=== PATIENT | female | born 1970 | race Caucasian/White ===

== ENCOUNTER 2024-05-01 22:05 | Inpatient (IN) | payer OTHER, SELFPAY ==
[2024-05-01] VITALS (10 sets, daily range): BP systolic 146–176; BP diastolic 62–99; PULSE 119–126; BMI 25.8; BMI 25.3
--- NOTE | 2024-05-01 17:16 | EDRN ---
glucose 136
[2024-05-01 17:18] LABS: Glucose - Point of Care 136 mg/dl (70-99)
[2024-05-01 18:09] LABS: Mean Corp Hgb Conc. 38.2 g/dL (33.0-37.0)
[2024-05-01 18:18] LABS: % Basophils 0.3 % (0-2); % Immature Granulocytes 0.3 % (0-0.5); % Lymphocytes 29.3 % (20.5-51.1); % Monocytes 8.7 % (1.7-9.3); % Neutrophils 61.4 % (42.2-75.2); Absolute Lymphocytes 0.9 10^3/uL (1.2-3.4); Absolute Monocytes 0.3 10^3/uL (0.1-0.6); Absolute Neutrophils 1.8 10^3/uL (1.4-6.5); Hemoglobin 8.4 g/dL (12.0-16.0); Mean Corpuscular Hgb 32.1 pg (27.0-31.0); Nucleated Red Blood Cells % 0 %; Platelet Count 176 10^3/uL (130-400); Red Blood Cell Count 2.62 10^6/uL (4.20-5.40)
[2024-05-01 18:27] LABS: ALT (SGPT) 29 U/L (0-35); AST (SGOT) 54 U/L (14-36); Albumin 4.9 g/dl (3.5-5.0); Alkaline Phosphatase 46 U/L (38-126); Blood Urea Nitrogen 19 mg/dl (7-17); Calcium 9.5 mg/dl (8.4-10.2); Carbon Dioxide 23 mmol/L (22-30); Chloride 96 mmol/L (98-107); Estimated Creatinine Clearance 67 ml/min; Glucose 124 mg/dl (70-99); Sodium 133 mmol/L (135-145); Total Bilirubin 1.6 mg/dl (0.2-1.3); Total Protein 7.4 g/dl (6.3-8.2); eGFR > 60.00
[2024-05-01] MEDS: ZOFRAN 4 MG IV (18:30)
[2024-05-01 18:44] LABS: Ammonia < 9 umol/L (9-30)
[2024-05-01 19:03] LABS: Troponin I 0.019 ng/ml
--- NOTE | 2024-05-01 19:41 | EDRN ---
Pt speaks in very soft often unintelligible voice. Pt is accompanied by her parents. Pt says she went to the [facility] today to shrimp picker her parents. Pt returned and says she started to not feel well but is unable to say what was bothering her.
Pt's mother says this started around 1500. Pt complains of hot flashes currently. Pt tearful when questioned about why she is not feeling well, running her hands all over her body whispering 'it's spreading throughout my body. I'm scared. I
don't know what is wrong with me.' Reassured pt multiple times she is in a safe place and that testing is being done to determine what is making her feel unwell. Pt has bruising to R lower lip and says she does not know how that happened. Pt
denies headache, cp, abd pain, vomiting, fever/chills/cough, urinary symptoms, dizziness, weakness. Pt says she has not been eating much lately but that is because she is on mounjaro. When asked if pt feels sob she started hyperventilating saying
she was and felt scared. Emotional support provided. This RN obtained oral temp of 99.8 and pt's mother said 'It's going up.' Pt then started screaming very loudly and HR went into 140's. Asked pt why she is screaming and she looked at this RN
with wide open eyes and said 'it's going up.' Reassured pt she is safe and there is no reason to be this alarmed by her temperature. Pt calmed and HR returned to normal. Lights dimmed for comfort. Dr Clifton informed of oral temp.
--- NOTE | 2024-05-01 20:06 | EDRN ---
Two RNs assisted pt to bathroom because she said she had to urinate. Pt unable to do so and complained she does not feel well, 'it's spreading throughout my body.' Pt burped about 6 times while sitting on toilet. Pt dragging her feet while
walking but able to walk on her own with slow gait. Discussed with Dr Clifton, additional labs added on and swabs to be obtained.
--- NOTE | 2024-05-01 20:14 | EDRN ---
Discussed with pt need for urine specimen and option of obtaining it by straight cath. All questions answered. Pt would like to wait until she is able to provide a specimen on her own.
[2024-05-01 20:37] LABS: COVID-19 Antigen Negative (Negative)
[2024-05-01 21:15] LABS: Acetaminophen < 10 ug/ml (10-30); Salicylate < 1.0 mg/dl (2.0-20.0)
[2024-05-01 21:16] LABS: Alcohol None Detected
[2024-05-01] MEDS: ATIVAN 0.5 MG IV (21:42)
--- NOTE | 2024-05-01 21:48 | HPS.HSE ---
Family Physician
-
Family Physician: INTERVIEWE UNKNOWN - PT NOT
Chief Complaint
-
Confusion / Anxiety
History of Present Illness
Patient is a 53y F with PMH significant for rheumatoid arthritis / lupus, history of breast cancer and DM who presents to ED for evaluation of altered mental status. History obtained from patient and her at the bedside. Patient was
feeling well this AM upon waking. Around 9:30 AM she developed 'hot flashes' which she has had in the past since hysterectomy done in 2011. These resolved fairly quickly. 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
Patient seemed well throughout.
Around 12 noon, found patient sitting on the cough and 'staring'. She was responsive, but only to say repeatedly 'I don't feel good'.
He helped her to stand and walk upstairs to the bedroom and noted that she was 'shaking' significantly throughout this process. Patient went to sleep then and remained asleep x several hours.
Family checked on her about 3 hours later and woke her. Upon waking, she seemed extremely confused and did not know who she was nor who the family members around her were. This reportedly resolved within minutes.
However, following this patient again complained of flushed / hot sensation throughout her body. She stated that she did not feel well again but could not further describe her symptoms.
She became anxious / restless and was brought to the ED for further evaluation and treatment.
In the ED, patient has periods wherein she is resting comfortably and other periods when she is restless / anxious.
No recent illness or symptoms of cough, dyspnea, sore throat, fevers / chills, N/V/D or urinary complaints.
states that newest med addition is tirzepatide which she started taking in August for DM. She has lost 25 lbs since that time.
Medical history is significant for an episode of confusion about one year ago. describes patient not being aware of who she was or who family was for about 30 minutes. She was evaluated as an outpatient including MR brain and all was
unremarkable. Sounds most c/w TGA.
She has a remote history of migraines, but has not had one in some time.
No prior history of seizures.
Prior history of autoimmune hemolytic anemia - most recent episode was this past summer.
Patient states that her baseline Hgb is in the 8s. Was in the 6s this summer during flare / episode.
She has history of breast cancer s/p bilateral mastectomy. She completed a single cycle of chemo but did not tolerate this and did not complete any additional treatments.
Patient has DM controlled with insulin pump. DM occurred following .
Medical History
Past Medical History
Past Medical History: Reports Other
Additional Past Medical History:
Rheumatoid Arthritis
Lupus
Autoimmune Hemolytic Anemia
Gestational DM / DM-II on Insulin Pump
Breast Cancer s/p Surgery (single chemo treatment)
Remote history of Migraines
GERD
Hypertension
Past Surgical History: Reports Other
Additional Past Surgical History:
Bilateral Mastectomy
Appendectomy
Cholecystectomy
Hysterectomy
Social History
Tobacco: Non-smoker
Alcohol: Occasional
Drug: None
Personal:
Living: With Family
Family History
Family History: Not pertinent
Allergies / Home Medications
Allergies reflects when Allergies were last updated in [facility].
Home Medications with original date entered in [facility]
Allergy/Medication List:
Allergies
Allergy/AdvReac Type Severity Reaction Status Date / Time
Latex, Natural Rubber Allergy Unknown Verified 05/01/24 17:12
Penicillins Allergy Unknown Verified 05/01/24 17:12
prochlorperazine Allergy Unknown Verified 05/01/24 17:12
[From Compazine]
Sulfa (Sulfonamide Allergy Unknown Verified 05/01/24 17:12
Antibiotics)
sumatriptan [From Imitrex] Allergy Unknown Verified 05/01/24 17:12
Home Medications
Patient Own Insulin Pump 0 units SC .VIA HUMALOG 05/01/24
aspirin 81 mg tablet,delayed release 81 mg PO DAILY 05/01/24
diltiazem HCl 180 mg capsule,24 hr,extended release 180 mg PO DAILY 05/01/24
exemestane 25 mg tablet 25 mg PO DAILY 05/01/24
famotidine 20 mg tablet (Pepcid) 20 mg PO HS 05/01/24
ibuprofen 400 mg tablet 400 mg PO Q6HPRN PRN mild pain 05/01/24
pantoprazole 40 mg tablet,delayed release (Protonix) 40 mg PO DAILY 05/01/24
prednisone 5 mg tablet 5 mg PO DAILY 05/01/24
rosuvastatin 5 mg tablet (Crestor) 5 mg PO QPM 05/01/24
tirzepatide 5 mg/0.5 mL subcutaneous pen injector (Mounjaro) 5 mg SC FR 05/01/24
upadacitinib 15 mg tablet,extended release 24 hr (Rinvoq) 15 mg PO DAILY 05/01/24
Review of Systems
-
History Source: Patient and Family
A 12 point ROS was completed and negative except as noted: Yes
Constitutional: Reports Weight Loss (25 lbs since August on tirzepatide) and Fatigue; Denies Fever or Chills
EENT: Denies Sore Throat or Runny Nose
Respiratory: Reports Trouble Breathing; Denies Cough
Cardiac: Reports Palpitations; Denies Chest Pain
Abdomen/GI: Reports Nausea and Vomiting; Denies Abdominal Pain, Diarrhea or Constipated
: Denies Dysuria or Flank Pain
Musculoskeletal: Denies Joint Pain or Edema
Neurological: Denies Dizzy, Headache, Weakness or Numbness
Psych: Reports Anxiety and Panic Disorder
Physical Exam
Vital Signs
Vital Signs
Temp Pulse Resp BP Pulse Ox
99.8 F 112 20 160/80 99
05/01/24 19:35 05/01/24 21:00 05/01/24 21:00 05/01/24 21:00 05/01/24 21:00
Physical Exam
General: Other (53y F awake and answers questions. Restless / anxious at times. )
HEENT: Moist mucous membranes, PERRLA and Other (R lower lip swollen / ecchymotic. No tongue laceration.)
Respiratory: Clear; No Wheezes, Rales or Rhonchi
Cardiac: S1/S2, Regular Rhythm and Murmur (II/ ESTRELLA)
GI: Soft, Non Tender, Non Distended and Normal Bowel Sounds
Musculoskeletal: No Clubbing, No Cyanosis and No Edema
Neuro: AO x 3 and Nonfocal/grossly intact
Psych: Anxious; No Confused
Laboratory Results
-
05/01/24 17:33
05/01/24 17:33
Laboratory Results
Total Bilirubin 1.6 mg/dl (0.2-1.3) H 05/01/24 17:33
AST 54 U/L (14-36) H 05/01/24 17:33
ALT 29 U/L (0-35) 05/01/24 17:33
Alkaline Phosphatase 46 U/L (38-126) 05/01/24 17:33
Troponin I 0.019 ng/ml 05/01/24 18:30
Impression/Plan
-
A/P: Patient is a 53y F with PMH significant for RA, Lupus, autoimmune hemolytic anemia and breast cancer who presents to ED for evaluation of mental status change / anxiety / etc.
Altered Mental Status
Anxiety / Restlessness
- Admit for further evaluation and treatment.
- Evaluation thus far has been unremarkable.
- Labs appear at baseline.
- Elevated HR / BP - potentially secondary to anxiety.
- CT head done in the ED was unremarkable.
- No other focal symptoms / complaints / etc.
- ? seizure activity with prolonged sleep this afternoon, staring episode and lower lip injury (unwitnessed)?
- Check MR brain with and without contrast in the AM.
- Neuro evaluation for additional recommendations.
- ? LP if symptoms worsen or persist.
- Follow for any new / focal symptoms or complaints.
- Follow for any evident seizure activity - PRN Ativan ordered in case needed.
Rheumatoid Arthritis
Lupus
Autoimmune Hemolytic Anemia
Anemia of Chronic Disease
- No evidence of any acute flare, etc at present.
- Hgb is at baseline per patient / .
- No schistocytes noted on peripheral smear.
- Check LDH / haptoglobin. Follow H&H for changes.
- Continue daily prednisone.
- Hold Rinvoq acutely.
- Given chronic immunocompromise, etc - ? 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 See above re: possible LP.
DM-II
- Stable. Glucose fairly well controlled- no evidence of hypoglycemia.
- No anion gap acidosis.
- Continue home pump. Follow glucose and adjust as needed.
- Update A1C.
Benign Hypertension
- BP (and pulse) elevated as noted above - ? secondary to anxiety versus other.
- Check TFTs, metanephrines / catechols, etc.
- Continue diltiazem with holding parameters.
- Monitor on telemetry.
History of Breast Cancer
- s/p bilateral mastectomy.
- Attempted chemo but stopped after one treatment due to intolerance.
- Follow-up has all been unremarkable per .
- Check MR brain with and without as noted above.
- Hold exemestane acutely - though this is not a new medication.
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
DVT Prophylaxis: SCDs
Code Status: Full
--- NOTE | 2024-05-01 21:52 | EDRN ---
Pulse ox dropped into 80's room air after iv ativan - pt placed on 4 lpm O2. Pt opens eyes spontaneously.
--- NOTE | 2024-05-01 22:20 | PTCARENOTE ---
Patient arrived from ED in stretcher with . Patient disoriented, anxious, and panicked about sharing a room with a stranger and worrying about her safety. Insisting her stay as well. Staff and tried to reassure her of her
safety without any resolve. Notified custodial supervisor and requesting no roommate/private room. Pt to be transferred to [facility], Kwasi RN notified of situation. Helped escort patient to new room.
[2024-05-01 22:26] LABS: LDH 450 U/L (120-246)
--- NOTE | 2024-05-01 22:48 | ED.GENMED ---
History of Present Illness
General
Chief Complaint: Change in Mental Status
Source: patient and family (Daughter and parents)
Exam Limitations: none
Time Seen by Provider: 05/01/24 17:28
Nursing documentation reviewed up to this point in time: agreed with
History of Present Illness
History of Present Illness:
53-year-old female presents emergency department due to confusion, altered mental status. She is intermittently yelling. She had something similar to this happen about a year ago. She was seen at [facility], had an MRI and told neurology. They did
not find any specific diagnosis.
Past History
Past History
ED Past Medical History: IDDM and Other (Anemia)
ED Past Surgical History: , Gynecological (Hysterectomy) and Other (Double mastectomy)
Social History
Tobacco: Non-smoker
Alcohol: None
Drug: None
Personal:
Living: with family
Review of Systems
Review of Systems
Allergies reviewed?: Yes
All Other Systems: Not applicable
Constitutional: Reports no symptoms
EENT: Reports no symptoms
Respiratory: Reports no symptoms
Cardiac: Reports no symptoms
ABD/GI: Reports nausea
: Reports no symptoms
Musculoskeletal: Reports no symptoms
Skin: Reports no symptoms
Neurological: Reports other (Confusion)
Endocrine: Reports no symptoms
Hematologic/Lymphatic: Reports no symptoms
Psychiatric: Reports anxiety
Phy Exam
Physical Exam
Physical Exam:
Physical Exam
General: Agitated, temperature 99.8
Neck: supple. no meningeal signs. normal posterior pharynx
Heart: s1/s2 regular rate and rhythm, no murmur. equal radial
pulses.
HEENT: Pupils equal round reactive to light, EOMI
Lungs: no acute respiratory distress. clear bilaterally
Abdomen: normal bowel sounds. not tender. no CVAT
Neuro: alert and oriented. no focal neurological deficits cranial nerves II through XII intact
Skin: no rash
Psychiatric: well kept. interactive and cooperative, intermittently screaming
Extremities: no edema. no calf tenderness. negative homans. good distal pulses
Course
Orders/Labs/Results
Orders:
Orders
05/01/24 17:31
HCG, Urine Qualitative Screen Urgent
Urine Drug Abuse Screen Urgent
Test Result ONCE
05/01/24 17:33
Acetaminophen Urgent
Comment: ADD ON
Alcohol Urgent
CMP [Comprehensive Metabolic Panel] Urgent
Complete Blood Count/With Diff Urgent
Salicylate Urgent
05/01/24 17:44
CT Head W/o Iv Contrast Urgent
Comment:
Reason For Exam: Change in mental status
05/01/24 18:24
Electrocardiogram (*1) Stat
Reason for Study: Other
Other Reason for Exam: nausea
Electrocardiogram (*1) Urgent
Reason for Study: TIA/Stroke
Ondansetron Injectable [Zofran] 4 mg IV NOW STA
05/01/24 18:26
Ammonia Urgent
05/01/24 18:30
Troponin I Urgent
05/01/24 18:44
EKG [Electrocardiogram (*1)] Urgent
Reason for Study: Fatigue / Weakness
05/01/24 18:45
EKG- Treatment ONCE
05/01/24 20:06
Add On- LAB Urgent
Tests Added?: tylenol, asa and alcohol levels
05/01/24 20:11
COVID-19 Antigen Urgent
Source: Nasal Swab
Influenza A+B Rapid Molecular Urgent
ESTEFANIA Source: Nasal Swab
Specimen Description:
05/01/24 21:19
Lorazepam [Ativan] 0.5 mg IV NOW STA
05/01/24 21:20
Admit/Transfer Patient As Directed
Co-Sign Provider:
Level of Care: Inpatient admission
Assign to:: Telemetry
Physician / Group: Dawit
Diagnosis: Altered Mental Status
Reason for Telemetry: Arrhythmia
Date to Stop Telemetry: 05/04/24
Time to Stop Telemetry: 11:00
Reason for Hospitalization: Altered Mental Status
Expected length of stay greater than two midnights?: Yes
ELOS- Estimated Length of Stay in days: 3
I certify the patient meets the requirements for IP care: Yes
PRN Pain Medication Management As Directed
May give lesser potent ordered pain med per pt: Yes
preference::
Protocol:: Medication orders for pain may be administered in a
manner that supports deferring to patient preference
when the pt is:
- Requesting an ordered lesser potent pain medication.
Least to most potent pain medications are defined
as: acetaminophen < NSAID < tramadol < opioids
(morphine, oxycodone, hydromorphone).
- Requesting a lesser dose of the same medication IF
ORDERED.
- Requesting a less intrusive route of administration
if both routes are prescribed by the provider (PO <
IV).
05/01/24 21:22
Code Status As Directed
Resuscitation Status: Full Code
05/01/24 21:41
Haptoglobin [S] Urgent
LDH Urgent
TSH Reflex To Free T4 Urgent
05/01/24 22:27
Troponin I Q6H
Acetaminophen [Tylenol] 650 mg PO Q4HPRN PRN
Dextrose 50%-Water [Dextrose 50% Syringe] 12.5 grams IV [id number] PRN
Glucagon [GlucaGen] 1 mg IM PRN PRN
Lactated Ringers [Lr] 1,000 ml IV 100 mls/hr
Lorazepam [Ativan] 1 mg IV Q4HPRN PRN
Ondansetron Injectable [Zofran] 4 mg IV Q6HPRN PRN
Patient Own Insulin Pump See Dose Instructions SC .VIA HUMALOG
05/01/24 22:27
Catecholamine Fraction Free,Ur [S] Routine
Metanephrines, Plasma (free) [S] Routine
Activity As Directed
Activity Level: Ambulate
With Assistance
Bedside Glucose Monitoring As Directed
Frequency: AC&HS
Additional Instructions:: Change to q6h if pt on TPN, tube feeding or not eating
Bladder Scan As Directed
Follow Bladder Retention/Intermittent Cath Algorithm?: Yes
PRN if no void in __ hours: 6
Frequency: Per Retention Algorithm
If Bladder Scan Result >: 400
then:: Straight cath
EKG with chest pain [ECG as needed] As Directed
ECG as needed for:: Chest Pain
I/O [Intake/ Output] As Directed
Frequency: Per unit guidelines
Neurological Checks As Directed
Frequency: q4h
Orthostatic Vital Signs As Directed
Orthostatic VS Frequency: BID
Pneumatic Compression Sleeves As Directed
Type: Knee high
Precautions As Directed
Type of Precautions: Seizure
Straight Cath As Directed
Frequency: Per Retention Algorithm
Additional Instructions: straight cath as needed per acute urinary retention algorithm for 24 hrs
Additional Instructions: for bladder scan greater than 400 mL
Vital Signs As Directed
Frequency: Per unit guidelines
Weight As Directed
Frequency: Daily
Oxygen Therapy [O2 Therapy] [RESP] Routine
Titrate/Wean O2 to maintain O2 sat greater than (%): 94
DX Deep Vein Thrombosis Video Routine
05/02/24 04:27
Troponin I Q6H
05/02/24 Breakfast
2000 calorie (17 carb) Diabetic
At Your Request: Limited Participation
Does patient need a safe tray?: No
Basic Metabolic Panel IN AM
Complete Blood Count/No Diff IN AM
Glycohemoglobin (HgbA1c) IN AM
LFT [Tapzd-Bpec-Qlbnjvb] IN AM
Magnesium IN AM
Phosphorus IN AM
MR Brain W/o & With Contrast IN AM
Comment:
Reason For Exam: Altered Mental Status
Recent pill cam endoscopy?: No
05/02/24 08:00
Aspirin Low Dose EC [Aspir Low (Enteric Coated)] 81 mg PO DAILY
Diltiazem Extended Release [Cardizem Cd] 180 mg PO DAILY
Pantoprazole [Protonix] 40 mg PO DAILY
Prednisone [Deltasone] 5 mg PO DAILY
05/02/24 10:27
Troponin I Q6H
05/04/24 11:00
DC Protocol for Telemetry ONCE
Abnormal Lab Results
05/01/24 05/01/24 05/01/24
17:16 17:33 18:26
WBC 3.0 L 10^3/uL
(4.8-10.8)
RBC 2.62 L 10^6/uL
(4.20-5.40)
Hgb 8.4 L g/dL
(12.0-16.0)
Hct 22.0 L %
(37.0-47.0)
MCH 32.1 H pg
(27.0-31.0)
MCHC 38.2 H g/dL
(33.0-37.0)
RDW 15.0 H %
(11.5-14.5)
MPV 11.0 H fL
(7.4-10.4)
Absolute Lymphs (auto) 0.9 L 10^3/uL
(1.2-3.4)
Sodium 133 L mmol/L
(135-145)
Chloride 96 L mmol/L
(98-107)
BUN 19 H mg/dl
(7-17)
Glucose 124 H mg/dl
(70-99)
Total Bilirubin 1.6 H mg/dl
(0.2-1.3)
AST 54 H U/L
(14-36)
Ammonia < 9 L umol/L
(9-30)
Lactate Dehydrogenase
Salicylates < 1.0 L mg/dl
(2.0-20.0)
Acetaminophen < 10 L ug/ml
(10-30)
POC Glucose 136 H mg/dl
(70-99)
05/01/24
21:41
WBC
RBC
Hgb
Hct
MCH
MCHC
RDW
MPV
Absolute Lymphs (auto)
Sodium
Chloride
BUN
Glucose
Total Bilirubin
AST
Ammonia
Lactate Dehydrogenase 450 H U/L
(120-246)
Salicylates
Acetaminophen
POC Glucose
05/01/24 17:33
05/01/24 17:33
Vital Signs
Initial and Last Documented VS:
Initial Vital Signs
Temp Pulse Resp BP Pulse Ox
98.3 F 94 16 176/85 98
05/01/24 17:12 05/01/24 17:12 05/01/24 17:12 05/01/24 17:12 05/01/24 17:12
Last Documented Vital Signs
Temp Pulse Resp BP Pulse Ox
99.8 F 101 23 160/80 100
05/01/24 19:35 05/01/24 22:00 05/01/24 22:00 05/01/24 21:00 05/01/24 22:00
MDM/Problems Addressed
Differential Diagnosis Includes:
CVA, hepatic encephalopathy
MDM/Problems Addressed:
53-year-old female with altered mental status, unclear etiology. Nausea. Detectable troponin, however no clear ischemia on EKG. Will admit to hospitalist, for further evaluation, trend troponins
*Radiology
Radiology exam reviewed: radiology read reviewed (CT head no acute findings)
*Pulse Oximetry
Patient hypoxic: no
*EKG
Interpreted by ED Provider?: Yes
EKG Intrepretation Date: 05/01/24
EKG Intrepretation Time: 18:47
Interpretation: abnormal
Comparison EKG: no comparison EKG present
Heart Rate: 109
Rate: tachycardiac
Rhythm: sinus tachycardia
Coffey: normal axis
Interval: normal interval
QRS Pattern: normal QRS
Ischemia: non-specific ST changes
*Manager Business Management Interpretation
Rate: tachycardiac
Interpretation: abnormal
Heart Rate: 109
Rhythm: sinus tachycardia
*Critical Care Note
Total Time (30-74mins, 75-104mins- exclusive of procedures): Not Applicable
Data Reviewed
Review of Other/Old Records Reveals: Labs (hb 11.8 on 03/13/22)
Source: records
Patient Management
Social determinants of health affecting care: Living situation
Discussion with other providers: Hospitalist
Escalation/DeEscalation of care consider admission/obs:
admit not indicated
ED Attending Note
-
Portions of this chart may have been created with voice recognition software.� Occasional wrong word or��sound alike� substitutions may have occurred due to the inherent limitations of voice recognition software.
Discharge Plan
Departure
Patient Disposition: Admit
Date of Disposition: 05/01/24
Time of Disposition: 20:12
Admit to: Telemetry
Presentation/result/management discussed w/ accepting MD/DO: Hospitalist
Patient with high blood pressure during this ER visit?: Yes
Condition: Fair
Discharge Problem:
Acute alteration in mental status
Interventions
Interventions:
*Risk Screen - Suicide Last Done: 05/01/24 17:12
*General Assessment Last Done: 05/01/24 17:24
*Neglect/Abuse Screening Last Done: 05/01/24 17:12
ED- Fall Risk Assessment Last Done: 05/01/24 17:24
*ED COVID-19 Vaccine History Last Done: 05/01/24 17:24
*Nursing Disposition Last Done: 05/01/24 22:22
ED- Pulmonary Assessment Last Done: 05/01/24 19:35
ED-Psychological Assessment Last Done: 05/01/24 17:57
ED- Neurological Assessment Last Done: 05/01/24 19:35
ED- Cardiac Assessment Last Done: 05/01/24 19:35
ED Swallowing Screen Last Done: 05/01/24 17:24
Discharge Date and Time
Discharge Date/Time: 05/01/24 22:22
[2024-05-01 22:50] LABS: TSH Reflex To Free T4 0.69 uIU/ml (0.47-4.68)
--- NOTE | 2024-05-01 22:59 | EDRN ---
Informed pt would not get off stretcher when taken up to 4th floor and reportedly refused to be placed in a semi private room. ED charge nurse asked this RN to call nurse for room 325 and give verbal report. Verbal report given to Kwasi on 3rd floor.
[2024-05-01] MEDS: LR 1000 IV (23:26)
--- NOTE | 2024-05-01 23:29 | PTCARENOTE ---
Pt transferred from 4E to rm 325. Maria Esther RN informed this RN of situation and ED nurse called w/ report. Pt very paranoid and and questioning staff. at bedside. Placed on tele #[id number], Sinus tach. insulin pump on LLQ, order to be acknowledged by
pharmacy. Bed alarm placed for safety. Plan of care ongoing.
[2024-05-01 23:39] LABS: Glucose - Point of Care 130 mg/dl (70-99)
[2024-05-02] MEDS: ATIVAN 0.5 MG IV (00:54)
[2024-05-02] MEDS: NSS (PRESERVATIVE FREE) 0.25 ML IV (00:54)
[2024-05-02 01:15] LABS: Troponin I 0.073 ng/ml
--- NOTE | 2024-05-02 02:34 | W.PN.UPDATE ---
Update Note
Progress Note Update
-Troponin is trending up, now is 0.073 on admission is 0.019. Asymptomatic. EKG ordered.
-Will continue trending troponin and EKG monitoring for changes.
[2024-05-02 03:30] VITALS: BP 144/81
[2024-05-02 05:33] VITALS: BMI 25.4
[2024-05-02] MEDS: TYLENOL 650 MG PO ×3 (05:42→20:50)
[2024-05-02 05:51] LABS: Amphetamines Negative (Negative); Barbiturates Negative (Negative); Benzodiazepines Positive (Negative); Buprenorphine Negative (Negative); Cocaine Negative (Negative); HCG, Urine Qualitative Screen Negative; Marijuana Negative (Negative); Methadone Negative (Negative); Methamphetamines Negative (Negative); Opiates Negative (Negative); Phencyclidine Negative (Negative); Tricyclic Antidepressants Negative (Negative)
--- NOTE | 2024-05-02 05:56 | PTCARENOTE ---
Pt very anxious/paranoid and did not want to leave. Pt repeatedly asking 'Why am I not getting better?'. Pt aaox3. Pt asked RN to named everything in the room since she was 'scared' of her surroundings. RN reassured pt that she is in a safe
place. Surroundings explained. Pt fidgeting and restless. DIRECT SUPPORT PROFESSIONAL notified. 1x dose Ativan 0.5mg IV given at 0054. pt agreed to let leave. Plan of care ongoing.
[2024-05-02 06:27] LABS: Hemoglobin 8.2 g/dL (12.0-16.0); Mean Corp Hgb Conc. 37.3 g/dL (33.0-37.0); Mean Corpuscular Hgb 30.8 pg (27.0-31.0); Mean Corpuscular Volume 82.7 fL (81.0-99.0); Mean Platelet Volume 9.9 fL (7.4-10.4); Platelet Count 146 10^3/uL (130-400); Red Blood Cell Count 2.66 10^6/uL (4.20-5.40); Red Cell Dist. Width 15.3 % (11.5-14.5); White Blood Cell Count 5.8 10^3/uL (4.8-10.8)
[2024-05-02 06:28] LABS: Fentanyl, Urine Negative (Negative)
[2024-05-02 06:58] LABS: Troponin I 0.279 ng/ml
[2024-05-02 07:20] LABS: ALT (SGPT) 27 U/L (0-35); AST (SGOT) 54 U/L (14-36); Albumin 4.4 g/dl (3.5-5.0); Alkaline Phosphatase 36 U/L (38-126); Blood Urea Nitrogen 16 mg/dl (7-17); Calcium 8.8 mg/dl (8.4-10.2); Carbon Dioxide 22 mmol/L (22-30); Chloride 95 mmol/L (98-107); Direct Bilirubin 0.2 mg/dl (0.0-0.4); Estimated Creatinine Clearance 76 ml/min; Glucose 96 mg/dl (70-99); Magnesium 1.6 mg/dl (1.6-2.3); Phosphorus 3.9 mg/dl (2.5-4.5); Potassium 3.7 mmol/L (3.5-5.1); Sodium 132 mmol/L (135-145); Total Bilirubin 1.5 mg/dl (0.2-1.3); Total Protein 6.9 g/dl (6.3-8.2); eGFR > 60.00
[2024-05-02 07:33] VITALS: BP 143/75
[2024-05-02 08:12] LABS: Glucose - Point of Care 97 mg/dl (70-99)
[2024-05-02 08:29] LABS: Glycohemoglobin (HgbA1c) 4.9 % (4.0-5.6)
[2024-05-02] MEDS: CARDIZEM CD 180 MG PO (08:58)
[2024-05-02] MEDS: PROTONIX 40 MG PO (08:59)
[2024-05-02] MEDS: ASPIR LOW (ENTERIC COATED) 81 MG PO (08:59)
[2024-05-02] MEDS: DELTASONE 5 MG PO (08:59)
[2024-05-02] MEDS: LR 1000 IV (09:00)
--- NOTE | 2024-05-02 09:53 | CON.NEURO4 ---
Addendum entered and electronically signed by Raymond Parra MD 05/02/24 14:49:
Studies reviewed.
I have personally examined the patient. I reviewed and agree with the STRAINER TENDER's Note.
My addenda:
Awake, alert, interactive. No acute distress.
Speech intact.
Follows 2-step requests w/o difficulty. No tremor.
Extra-ocular movements grossly intact.
Facial movements full and symmetric. Hearing intact to normal conversational volume.
Normal UE movements bilaterally.
Neck: full ROM.
Chest: no dyspnea
Heart: no JVD
Ext: (-) Clubbing, (-) Cyanosis, (-) Edema
IMPRESSIONS/RECOMMENDATIONS:
Abrupt onset of change in mental status with the patient having had a prior change mental status 1 year ago associated with agitation, also.
Differential diagnosis includes toxic metabolic encephalopathy, seizure
Check EEG to ensure patient is not having generalizing seizures
Check MRI of brain as already planned to ensure no structural abnormalities producing symptomatology
Provide thiamine
Consider lumbar puncture dependent on above findings
D/W patient
Will continue to follow patient.
Original Note:
Documented by User: Betsey Whittington NP 05/02/24 12:27
Consultation - Neurology 4
-
CONSULTING PHYSICIAN: Raymond Parra MD
REFERRING PHYSICIAN: ER/Dr. Pastor
DICTATED BY: MURTAZA Jiang
DATE/TIME OF REQUEST: 05/01/24
DATE/TIME OF CONSULTATION: 05/02/24
Reason for Consultation: Altered mental status
History of Present Illness:
This is a 53-year-old right-handed female who has presented to the hospital on 05/01/24 with report of altered mental status. Patient is currently lethargic/somewhat confused and some of this information is obtained from medical records. Per
patient's , she woke up yesterday morning (05/01/24) at her baseline. Around 0930 she told him she was having 'hot flashes,' which was not unusual for her since her hysterectomy. Around noon, her found her sitting on the couch staring.
She was verbally responsive but only repeatedly saying 'I don't feel good.' He helped her upstairs to bed and she was 'shaky' and proceeded to nap for several hours. Three hours later her family woke her up and reports that she was confused and
didn't know who she was or who they were for several minutes. She noted feeling flushed and was anxious/restless, prompting them to bring her to the ER for evaluation. On arrival in the ER she was noted to have periods or restlessness and yelling,
which the patient can remember doing. CT head was obtained and is negative for any acute abnormalities. Today (05/02/24), she reports feeling very fatigued but otherwise offers not complaints. She is very restless in bed and making a somewhat
rhythmic mouth chewing movement. She denies any headache, neck/back pain, dizziness, vision changes, speech/swallow difficulty, numbness, weakness, chest pain, palpitations, and shortness of breath. Oral temp is currently 100.8. Troponin levels have
been increasing, most recent one was 0.279.
She had a somewhat similar episode of confusion about one year ago lasting 30 minutes. She was evaluated at [facility] at that time and had a negative MRI brain and unremarkable workup. She was newly started on Mounjaro in August 2023 and
has had a 25 pound weight loss since. She is also on Rinvoq for rheumatoid arthritis.
Past Medical History: HTN, NIDDM requiring insulin since gestational diabetes, Rheumatoid arthritis (Rinvoq), lupus, breast cancer s/p b/l mastectomy and single chemo treatment, autoimmune hemolytic anemia, GERD
Surgical History: Appendectomy, cholecystectomy, hysterectomy, b/l mastectomy
Family History: Reviewed and noncontributory.
Social History: Denies tobacco and illicit drug use. Rare alcohol.
Allergies: Latex, penicillins, prochlorperazine, sulfa, sumatriptan.
Home Medications: See below.
Review of Symptoms:
Patient denies any fever, headache, chest pain, shortness of breath, GI or symptoms.
�Per the HPI.�All systems are reviewed negative except above.
Physical Exam:
The patient is afebrile, abdomen is nondistended, breathing is unlabored, skin is warm and dry, no edema.
NIH Stroke Scale:
I performed the NIH stroke scale on the patient on 05/02/24 at 1000. The patient scored 1 points on the NIH stroke scale assessment, which were assigned as follows: See below.
Neurologic Examination:
The patient is drowsy. Opens eyes to voice. Oriented x 3 are several attempts/self corrections. She is able to follow commands and answer questions appropriately, but responses are delayed. There is no aphasia or dysarthria. Speech is hypophonic.
On cranial nerve assessment, pupils are 3 mm bilateral, round and reactive to light and accommodation. Visual celestin are full. Extraocular movements are intact. Facial sensations are intact and bilaterally symmetrical, there is an intermittent
rhythmic mouth movement. Hearing is intact bilaterally to normal conversation volume. Tongue palate and uvula are midline. Sternocleidomastoid strengths are full bilaterally. Motor strengths are 5/5 bilateral upper and lower extremities on medical
research [place] scale. There is no drift. Deep tendon reflexes are 2+ bilateral upper and lower extremities and Babinski is absent bilaterally. Sensations of touch, temperature and vibration are intact and bilaterally symmetrical. There was no
extinction noted on double simultaneous stimulation. Coordination is intact by finger to nose bilaterally.
Lab Results: See below.
Neuro Imaging:
1. CT Head 05/01/24: No acute intracranial abnormality noted.
Differentials for the patient's presentation include:
1. Altered mental status unclear etiology; partial seizure possible, vascular or structural brain abnormality possible, some concern for RECREATION CENTER DIRECTOR infectious source given immune compromising medication usage.
Patient has the following risk factors for their symptoms: Immune compromised, elevated troponin
Recommendations:
-Routine EEG pending.
-MRI brain w/ and w/o contrast pending.
-Consider lumbar puncture based on MRI brain results.
-Goal normothermia, normotension.
-Neurological checks per unit guidelines.
-Continue aspirin 81mg daily.
-Would hold off on starting an antiseizure medication at this time.
-PT/OT/ST evaluations.
-DVT prophylaxis.
-Will follow.
Discussed patient care with: Dr. Parra, the patient
Vital Signs and Labs
-
Vital Signs and Labs:
Vital Signs
Temp Pulse Resp BP Pulse Ox
100.8 F H 99 16 141/74 95
05/02/24 11:21 05/02/24 11:21 05/02/24 11:21 05/02/24 11:21 05/02/24 11:21
Lab Results
05/02/24 06:13
05/02/24 06:14
Sodium 132 mmol/L (135-145) L 05/02/24 06:14
Potassium 3.7 mmol/L (3.5-5.1) 05/02/24 06:14
BUN 16 mg/dl (7-17) 05/02/24 06:14
Glucose 96 mg/dl (70-99) 05/02/24 06:14
Calcium 8.8 mg/dl (8.4-10.2) 05/02/24 06:14
Phosphorus 3.9 mg/dl (2.5-4.5) 05/02/24 06:14
Ur Buprenorphine Negative (Negative) 05/02/24 05:29
Medications
-
Medications:
Generic Name Dose Route Start Last Admin
Trade Name Freq PRN Reason Stop Dose Admin
Acetaminophen 650 mg 05/01/24 22:27 05/02/24 05:42
Acetaminophen 325 Mg Tablet PO 05/29/24 22:26 650 mg
Q4HPRN PRN Administration
Mild Pain / Temp > 101
Aspirin 81 mg 05/02/24 08:00 05/02/24 08:59
Aspirin 81 Mg (Enteric Coated) Tablet PO 05/30/24 07:59 81 mg
DAILY LAY Administration
Dextrose 12.5 grams 05/01/24 22:27
Dextrose 50% (0.5 Grams/Ml) 50 Ml Syringe IV 05/29/24 22:26
[id number] PRN
hypoglycemia
Protocol
Diltiazem HCl 180 mg 05/02/24 08:00 05/02/24 08:58
Diltiazem 180 Mg Extended Release (24 H) Capsule PO 05/30/24 07:59 180 mg
DAILY LAY Administration
Glucagon 1 mg 05/01/24 22:27
Glucagon 1 Mg Vial IM 05/29/24 22:26
PRN PRN
hypoglycemia
Protocol
Lactated Ringer's 1,000 mls @ 100 mls/hr 05/01/24 22:27 05/02/24 09:00
Lr IV 1,000 mls
.Q10H LAY Administration
Lorazepam 1 mg 05/01/24 22:27
Lorazepam 2 Mg/Ml Vial IV 05/29/24 22:26
Q4HPRN PRN
Seizure activity
Lorazepam 1 mg 05/02/24 10:04
Lorazepam 1 Mg Tablet PO 05/02/24 20:59
ONCE PRN
1 hour prior for MRI of brain
Non-Formulary Medication 0 units 05/01/24 22:27
Patient Own Insulin Pump SC 05/29/24 22:26
.VIA HUMALOG LAY
Ondansetron HCl 4 mg 05/01/24 22:27
Ondansetron 4 Mg/2 Ml Vial IV 05/29/24 22:26
Q6HPRN PRN
nausea and vomiting
Pantoprazole Sodium 40 mg 05/02/24 08:00 05/02/24 08:59
Pantoprazole 40 Mg Delayed Release Tablet PO 05/30/24 07:59 40 mg
DAILY LAY Administration
Prednisone 5 mg 05/02/24 08:00 05/02/24 08:59
Prednisone 5 Mg Tablet PO 05/30/24 07:59 5 mg
DAILY LAY Administration
Sodium Chloride 0 flush 05/01/24 23:00
Sodium Chloride 0.9% (Flush) Syringe IV 05/29/24 22:59
PER PROTOCOL LAY
Sodium Chloride 0.5 ml 05/01/24 22:39
Nss (Pf) 10 Ml Vial For Ativan 1 Mg Dose IV 05/29/24 22:38
Q4HPRN PRN
IV LORAZEPAM DILUTION
Thiamine HCl 100 mg 05/02/24 12:00
Thiamine 100 Mg Tablet PO 05/04/24 08:01
DAILY LAY
NIH Stroke Score
Subsequent NIH Scale
Date of Subsequent NIH Scale: 05/02/24
Time of Subsequent NIH Scale: 10:00
NIH Stroke Score
Level of Consciousness: 1 - Arousable
LOC Questions: 0-Answers both correctly
LOC Commands: 0-Performs both correctly
Best Horizontal Gaze: 0-Normal
Visual Celestin: 0=Normal, no visual loss
Facial Palsy: 0=Normal, symmetrical
Motor - Right Arm: 0=No drift 10 seconds
Motor - Left Arm: 0=No drift 10 seconds
Motor - Right Le-No drift 5 seconds
Motor - Left Le-No drift 5 seconds
Limb Ataxia: 0-Absent
Sensation: 0-Normal
Best Language: 0-No aphasia
Dysarthria: 0-Normal
Extinction and Inattention: 0-No abnormality
Total Score:: 1

Documented by User: Raymond Parra MD 05/02/24 14:45
NIH Stroke Score
NIH Stroke Score
Total Score:: 1
[2024-05-02 11:05] LABS: Erythrocyte Sed Rate 39 mm/hour (0-20)
[2024-05-02 11:21] VITALS: BP 141/74
[2024-05-02 11:36] LABS: Ferritin 45.9 ng/ml (11.1-264.0)
[2024-05-02 12:08] LABS: Folate > 20.0 ng/ml (2.76-20)
--- NOTE | 2024-05-02 12:35 | CM ---
CM attempted bedside visit and pt off unit
Call with spouse/Lauro [phone]
Pt and spouse reside in a [address] with 2 [address]
14 steps to 2nd floor
Pt's parents resides with them in an in-law suite
Pt is independent with her ADLs
She has an insulin pump and dexcom
PCP- Reynaldo, first name unknown
Rx- [facility]
Discharge Disposition- likely home no needs
--- NOTE | 2024-05-02 12:44 | W.PN.HOSP.TC ---
Today's Communication/Plan
-
Check ua/bcx
trend trop
MRI/EEG pending
Check ECHO
Neuro/Cards eval
Assessment / Plan
Assessment / Plan
A/P: Patient is a 53y F with PMH significant for RA, Lupus, autoimmune hemolytic anemia and breast cancer who presents to ED for evaluation of mental status change / anxiety / etc.
Altered Mental Status
Anxiety / Restlessness
- CT head done in the ED was unremarkable.
- No other focal symptoms / complaints / etc.
- ? seizure activity with prolonged sleep this afternoon, staring episode and lower lip injury (unwitnessed)?
- Check MR brain with and without contrast
- Check EEG
- Etoh negative. UDS noted
- Follow for any new / focal symptoms or complaints.
- Follow for any evident seizure activity - PRN Ativan ordered in case needed.
- Neuro evaluation for additional recommendations.
Fever
-COVID and Influenza negative.
-Check UA and blood culture
-Hold off on antibiotics.
-If persistent fevers may need to consider LP.
Elevated troponin
-Trop uptrending.
-Check ECHO
-Cardiology eval-no prior hx of CAD
Rheumatoid Arthritis
Lupus
Autoimmune Hemolytic Anemia
Anemia of Chronic Disease
- No evidence of any acute flare, etc at present.
- Hgb is at baseline per patient / .
- No schistocytes noted on peripheral smear.
- Continue daily prednisone.
- Hold Rinvoq acutely.
- Given chronic immunocompromise, etc - ? reactivation of viral process / EXCELSIOR MACHINE TENDER involvement? See above re: possible LP.
DM-II
- Stable. Glucose fairly well controlled- no evidence of hypoglycemia.
- No anion gap acidosis.
- Continue home pump. Follow glucose and adjust as needed.
- Update A1C.
Benign Hypertension
- BP (and pulse) elevated as noted above - ? secondary to anxiety versus other.
- Check TFTs, metanephrines / catechols, etc.
- Continue diltiazem with holding parameters.
- Monitor on telemetry.
History of Breast Cancer
- s/p bilateral mastectomy.
- Attempted chemo but stopped after one treatment due to intolerance.
- Follow-up has all been unremarkable per .
- Check MR brain with and without as noted above.
- Hold exemestane acutely - though this is not a new medication.
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
Mild hyponatremia
-monitor for now
DVT Prophylaxis: hep sc
Code Status: Full
Anticipated Discharge: > 48 hours
Subjective/Interval History
-
Date of Service: May 02, 2024
slow speech
But awake, alert and oriented
spiked fever just now
Objective Data
-
Labs:
Laboratory Results
05/02/24 05/02/24
06:13 06:14
WBC 5.8
Hgb 8.2 L
Hct 22.0 L
Plt Count 146
Sodium 132 L
Potassium 3.7
Chloride 95 L
Carbon Dioxide 22
BUN 16
Creatinine 0.7
Glucose 96
Calcium 8.8
Total Bilirubin 1.5 H
AST 54 H
ALT 27
Alkaline Phosphatase 36 L
Vital Signs:
Vital Signs
Temp Pulse Resp BP Pulse Ox
100.8 F H 99 16 141/74 95
05/02/24 11:21 05/02/24 11:21 05/02/24 11:21 05/02/24 11:21 05/02/24 11:21
I&O
05/01/24 05/02/24 05/03/24
06:59 06:59 06:59
Output Total 250 / 250
Balance -250 / -250
Physical Exam
-
General: Well Developed, Well Nourished, No Apparent Distress and Comfortable
HEENT: Normocephalic, Atraumatic, Moist Mucous Membranes, No Ptosis, Nose Appears Normal, Ears Appear Normal, Neck Non Tender and Other (SUPPLE )
Respiratory: Clear to Auscultation
Cardiac: Regular Rhythm and S1/S2; Negative Murmur, Rub or Gallop
Breast: Deferred by me
GI: Soft, Nontender, Nondistended and Normal Bowel Sounds; Negative Organomegaly
Rectal: Deferred by Provider
Genito-urinary: Deferred by me
Musculoskeletal: No Clubbing, No Cyanosis and No Edema
Skin: Warm; Negative Rash
Neuro: Awake, Alert and Nonfocal/Grossly Intact; Negative Tremors, Sedated, Slurred Speech or Facial Droop
Psych: Calm
Data Reviewed
-
Total Time Spent with Patient (in minutes): 59
--- NOTE | 2024-05-02 12:49 | CON.CAR ---
Addendum entered and electronically signed by Dimitri Brizuela MD 05/02/24 15:18:
-
-
I saw and examined the patient.
The LABORER TIN CAN's note was reviewed and I agree with the note.
Comment: No clinical syndrome of ischemia. EKG with mild ST depression. Troponin minimally abnormal.
Imp:
Probable non-myocardial injury from her underlying medical illness
Given the mild ST-T depression cannot exclude a type II event but that seems less likely
Suggest:
Echo
Outpatient stress test
Risk factor modification, outpatient lipid profile
-
-
Original Note:
Consultation
Consultation Request
Date/Time Consultation Requested: 05/02/2024 12:25
Date/Time Consultation Performed: 12:50
Requesting Provider: Dr. Meredith
Performing Provider: MURTAZA Valdovinos for Dr. Brizuela
Reason for Consultation: Abnormal troponin
Medical History
-
Chief Complaint: Change in mental status
History of Present Illness:
Roxy Mcadams is a 53-year-old female with RA, SLE, prior breast cancer, and type 2 diabetes mellitus who presented to the emergency department with a chief complaint and change in mental status. She is able to answer all questions during this
consultation with a very slow response. She does not remember the full details of coming in but remembers not feeling well. She has no complaints other than fatigue. Cardiology was consulted for an abnormal troponin.
Past Medical History
Past Medical History: Cancer (Breast [s/p mastectomy and single chemotherapy treatment]), GERD, HTN, Hypercholesterolemia, IDDM and Other (RA)
Past Surgical History: Appendectomy, Cholecystectomy and Gynecological (Hysterectomy)
Social History
Tobacco: Non-Smoker
Alcohol: None
Drug: None
Personal:
Living: With Family
Employment: Employed
Family History
Family History: Reviewed & Not Pertinent (Denies early CAD and SCD. Only child.)
Allergies / Home Medications
Allergy/AdvReac Type Severity Reaction Status Date / Time
Latex, Natural Rubber Allergy Unknown Verified 05/01/24 17:12
Penicillins Allergy Unknown Verified 05/01/24 17:12
prochlorperazine Allergy Unknown Verified 05/01/24 17:12
[From Compazine]
Sulfa (Sulfonamide Allergy Unknown Verified 05/01/24 17:12
Antibiotics)
sumatriptan [From Imitrex] Allergy Unknown Verified 05/01/24 17:12
�Medication �Instructions �Recorded �Confirmed �Type
Patient Own Insulin Pump 0 units SC .VIA HUMALOG Diabetes 05/01/24 05/01/24 History
aspirin 81 mg tablet,delayed 81 mg PO DAILY Blood Clot 05/01/24 05/01/24 History
release Prevention/Tx
diltiazem HCl 180 mg capsule,24 180 mg PO DAILY Blood Pressure 05/01/24 05/01/24 History
hr,extended release
exemestane 25 mg tablet 25 mg PO DAILY Hormonal Agent 05/01/24 05/01/24 History
famotidine 20 mg tablet (Pepcid) 20 mg PO HS Gastrointestinal Issue 05/01/24 05/01/24 History
ibuprofen 400 mg tablet 400 mg PO Q6HPRN PRN mild pain 05/01/24 05/01/24 History
pantoprazole 40 mg tablet,delayed 40 mg PO DAILY Gastrointestinal 05/01/24 05/01/24 History
release (Protonix) Issue
prednisone 5 mg tablet 5 mg PO DAILY rheumatoid arthritis 05/01/24 05/01/24 History
rosuvastatin 5 mg tablet (Crestor) 5 mg PO QPM High Cholesterol 05/01/24 05/01/24 History
tirzepatide 5 mg/0.5 mL 5 mg SC FR Diabetes 05/01/24 05/01/24 History
subcutaneous pen injector
(Mounjaro)
upadacitinib 15 mg tablet,extended 15 mg PO DAILY Rheumatoid arthritis 05/01/24 05/01/24 History
release 24 hr (Rinvoq)
Review of Systems
-
History Source: Patient
All other systems: Negative unless noted
Constitutional: Fatigue
EENT: No Symptoms
Respiratory: No Symptoms
Cardiac: No Symptoms
Abdomen/GI: No Symptoms
: No Symptoms
Musculoskeletal: No Symptoms
Skin: No Symptoms
Neurological: No Symptoms
Endocrine: No Symptoms
Hematologic/Lymphatic: No Symptoms
Physical Exam
Vital Signs
Temp Pulse Resp BP Pulse Ox
100.8 F H 99 16 141/74 95
05/02/24 11:21 05/02/24 11:21 05/02/24 11:21 05/02/24 11:21 05/02/24 11:21
Lab Results
05/02/24 06:13
05/02/24 06:14
Troponin I 0.279 ng/ml H* D 05/02/24 06:13
Physical Exam
General: Well Developed, Well Nourished and No Apparent Distress
HEENT: Normocephalic, Anicteric and Moist Mucous Membranes
Respiratory: Clear and Non Labored Respirations
Cardiac: S1/S2, Regular Rhythm and Murmur (Systolic)
Breast: Deferred by me
GI: Soft, Non Tender, Non Distended and Normal Bowel Sounds
Rectal: Deferred by Provider
Genito-urinary: No Costovertebral Tender
Musculoskeletal: No Clubbing, No Cyanosis and No Edema
Skin: Warm and Dry
Neuro: AO x 3 and Other (Delayed responses)
Hematologic/Lymphatic: No Lymphadenopathy
Psych: Calm
Impression / Plan
-
BACKGROUND: 53F with RA, SLE, prior breast cancer s/p bilateral mastectomy with single chemotherapy treatment, and type 2 diabetes mellitus who presented to the emergency department with a chief complaint and change in mental status.
IMPRESSION/PLAN:
Abnormal troponin, type unknown
-Denies chest pain and shortness of breath
-Trend troponin to peak, currently 0.279
-Echocardiogram
Change in mental status
-Neurology following
Febrile
-No leukocytosis
-COVID-19 and influenza negative
-Blood cultures ordered by primary service
Tachycardia, likely in the setting of acute illness/infection/syndrome, she denies palpitations
RA
SLE
Type 2 diabetes mellitus on insulin, per primary
Anemia, likely of chronic disease, per primary
SUBJECTIVE:
Denies chest pain, dizziness, shortness of breath.
She endorses fatigue.
Data Reviewed
-
EKG: Report Reviewed by me (Sinus rhythm, nonspecific ST abnormality, rate 95)
CT Scan: Report Reviewed by me (Head: No acute intracranial abnormality noted.)
Labs: Labs Reviewed by me
[2024-05-02 13:06] LABS: Vitamin B12 818 pg/ml (239-931)
[2024-05-02 14:10] LABS: Troponin I 0.285 ng/ml
[2024-05-02] MEDS: VITAMIN B1 100 MG PO (14:42)
--- NOTE | 2024-05-02 14:49 | EEG.RPT ---
Electroencephalogram Report
Recording
Date of EE05/02/24
Type of EEG: Routine
Length of EEG recordin minutes
Done with Video Recording: Yes
Patient Status: Inpatient
Recording Conditions: Awake and Drowsy
Hyperventilation Performed: No
Photic Stimulation Performed: Yes
Report
LESS THAN 1 HOUR EEG INTERPRETATION:
Unremarkable EEG for age
CLINICAL CORRELATION:
A normal EEG does not rule out a diagnosis of epilepsy. If clinical suspicion for seizure persists, a prolonged recording may be warranted.
Clinical correlation is advised.
METHODS:
A 21 channel digitized electroencephalogram (EEG) was performed using the 10/20 international system of electrode placement and one-lead of ECG recorded. The [employer] quantitative EEG system was utilized.
ELECTROENCEPHALOGRAPHER IMPRESSION(S):
Quality of study
Fair due to muscle artifact and sweat artifact
Background
There was an unremarkable anterior-posterior voltage gradient of alpha frequency, usually theta.
With eye opening the background activity changed to a low voltage mixture of frequencies.
There were no significant asymmetries of background activity noted.
Sleep
Drowsiness present
Photic Stimulation
No activation
ECG
Normal sinus rhythm
[2024-05-02 15:23] VITALS: BP 135/63
[2024-05-02] MEDS: ZOFRAN 4 MG IV (15:35)
[2024-05-02 16:11] LABS: Troponin I 0.271 ng/ml
[2024-05-02 17:38] LABS: Glucose - Point of Care 150 mg/dl (70-99)
[2024-05-02] MEDS: HEPARIN 5000 UNITS SC (17:47)
[2024-05-02] MEDS: TIGAN 200 MG IM (17:47)
[2024-05-02 19:41] VITALS: BP 134/77
[2024-05-02 22:50] VITALS: BP 117/67; BP 124/76; BP 133/72; PULSE 106; PULSE 113; PULSE 94
[2024-05-02] MEDS: PATIENT'S OWN INSULIN PUMP SC (23:40)
[2024-05-03] VITALS (9 sets, daily range): BP systolic 108–140; BP diastolic 61–73; PULSE 91–108; O2SAT 96; BMI 25.8
[2024-05-03] MEDS: HEPARIN 5000 UNITS SC ×4 (00:56→23:11)
[2024-05-03] MEDS: ZOFRAN 4 MG IV ×4 (01:49→23:10)
[2024-05-03] MEDS: LIDOCAINE 4% PATCH 1 PATCH TOPICAL (01:50)
[2024-05-03] MEDS: ATIVAN 0.25 MG PO ×2 (03:48→23:38)
[2024-05-03] MEDS: VITAMIN B1 100 MG PO (08:02)
[2024-05-03] MEDS: TYLENOL 650 MG PO ×2 (08:02→19:45)
[2024-05-03] MEDS: PROTONIX 40 MG PO (08:02)
[2024-05-03] MEDS: DELTASONE 5 MG PO (08:02)
[2024-05-03] MEDS: ASPIR LOW (ENTERIC COATED) 81 MG PO (08:02)
[2024-05-03] MEDS: CARDIZEM CD 180 MG PO (08:03)
[2024-05-03 08:15] LABS: Glucose - Point of Care 96 mg/dl (70-99)
[2024-05-03 08:20] LABS: % Basophils 0.3 % (0-2); % Immature Granulocytes 0.6 % (0-0.5); % Monocytes 8.4 % (1.7-9.3); % Neutrophils 81.7 % (42.2-75.2); Absolute Lymphocytes 0.3 10^3/uL (1.2-3.4); Absolute Monocytes 0.3 10^3/uL (0.1-0.6); Absolute Neutrophils 2.8 10^3/uL (1.4-6.5); Hematocrit 21.9 % (37.0-47.0); Hemoglobin 8.2 g/dL (12.0-16.0); Mean Corp Hgb Conc. 37.4 g/dL (33.0-37.0); Mean Corpuscular Hgb 31.5 pg (27.0-31.0); Mean Corpuscular Volume 84.2 fL (81.0-99.0); Nucleated Red Blood Cells % 0 %; Platelet Count 131 10^3/uL (130-400); Red Cell Dist. Width 15.7 % (11.5-14.5); White Blood Cell Count 3.4 10^3/uL (4.8-10.8)
[2024-05-03 08:28] LABS: ALT (SGPT) 30 U/L (0-35); AST (SGOT) 67 U/L (14-36); Albumin 4.3 g/dl (3.5-5.0); Alkaline Phosphatase 34 U/L (38-126); Blood Urea Nitrogen 14 mg/dl (7-17); Calcium 8.8 mg/dl (8.4-10.2); Carbon Dioxide 24 mmol/L (22-30); Estimated Creatinine Clearance 67 ml/min; Glucose 68 mg/dl (70-99); Potassium 3.6 mmol/L (3.5-5.1); Sodium 128 mmol/L (135-145); Total Protein 6.7 g/dl (6.3-8.2); eGFR > 60.00
--- NOTE | 2024-05-03 08:32 | W.PN.CD ---
Today's Communication / Plan
-
no active cardiac symptoms, normal echocardiogram
continue asa and statin
I will sign off
Impression / Plan
-
BACKGROUND: 53F with RA, SLE, prior breast cancer s/p bilateral mastectomy with single chemotherapy treatment, and type 2 diabetes mellitus who presented to the emergency department with a chief complaint and change in mental status.
IMPRESSION/PLAN:
Nonischemic myocardial injusry in the setting of fever and tachycarida(sinus)
-Denies chest pain and shortness of breath
-troponin to peak 0.285
-Echocardiogram with normal LVEF
Febrile
-No leukocytosis, now leukopenic
-COVID-19 and influenza negative
-Blood cultures ordered by primary service
-care as per medicine
Change in mental status
-Neurology following
Tachycardia, likely in the setting of acute illness/infection/syndrome, she denies palpitations
RA
SLE
Type 2 diabetes mellitus on insulin, per primary
Anemia, likely of chronic disease, per primary
SUBJECTIVE:
Denies chest pain, dizziness, shortness of breath.
She is tired.
Physical Exam
Vital Signs/Labs
Vital Signs
Temp Pulse Resp BP Pulse Ox
101.7 F H 105 17 124/65 94
05/03/24 06:59 05/03/24 08:03 05/03/24 06:59 05/03/24 08:03 05/03/24 06:59
05/02/24 05/03/24 05/04/24
06:59 06:59 06:59
Actual Weight 64.92 kg 65.969 kg
05/03/24 06:48
05/03/24 06:48
Magnesium 1.6 mg/dl (1.6-2.3) 05/02/24 06:14
LAB Results
05/01/24 05/01/24 05/02/24
18:30 22:27 00:10
Troponin I 0.019 Cancelled 0.073 H* D
05/02/24 05/02/24 05/02/24
06:13 13:34 15:34
Troponin I 0.279 H* D 0.285 H* 0.271 H*
Physical Exam
Constitutional: No acute distress
Cardiovascular: Rhythm & rate is regular, Pedal edema is absent, JVD pressure is normal, Systolic murmur absent and Diastolic murmur absent
Respiratory: Respiratory effort normal, Lungs clear to auscul., Wheeze Absent, Crackles Absent and Rhonchi Absent
Neuro/Psych: AO x 3
Data Reviewed
-
Date of Service: May 03, 2024
EKG: Other (sinus tachycardia on tele)
Echo: Other (Normal LVEF, MVP of posterior leaflet with no significant MR )
[2024-05-03] MEDS: PATIENT'S OWN INSULIN PUMP SC ×3 (08:59→21:57)
--- NOTE | 2024-05-03 09:28 | W.PN.NEURO.1 ---
Today's Communication / Plan
-
Supportive care
Consider outpatient paraneoplastic evaluation
Continue steroids
Continue thiamine
Consider lumbar puncture if the patient has worsening of symptomatology or recurrence
Neuro Assessment/Plan
Assessment
Abrupt onset of change in mental status with the patient having had a prior change mental status 1 year ago associated with agitation, also.
Differential diagnosis includes toxic metabolic encephalopathy, seizure
MRI of brain and EEG were not demonstrative of causative abnormalities
Plan
Supportive care
Consider outpatient paraneoplastic evaluation
Continue steroids
Continue thiamine
Consider lumbar puncture if the patient has worsening of symptomatology or recurrence
We will follow peripherally
Subjective/Objective
Subjective Data
Date of Service: May 03, 2024
Patient believes that she has returned to normal cognition. Patient's family agrees that cognition is not significantly troubled
Objective Data
Vital Signs
Temp Pulse Resp BP Pulse Ox
38.0 C H 105 17 124/65 94
05/03/24 09:17 05/03/24 08:03 05/03/24 06:59 05/03/24 08:03 05/03/24 06:59
Lab Results
05/03/24 06:48
05/03/24 06:48
Sodium 128 mmol/L (135-145) L 05/03/24 06:48
Potassium 3.6 mmol/L (3.5-5.1) 05/03/24 06:48
BUN 14 mg/dl (7-17) 05/03/24 06:48
Glucose 68 mg/dl (70-99) L 05/03/24 06:48
Calcium 8.8 mg/dl (8.4-10.2) 05/03/24 06:48
Phosphorus 3.9 mg/dl (2.5-4.5) 05/02/24 06:14
Vitamin B12 818 pg/ml (239-931) 05/02/24 06:13
Ur Buprenorphine Negative (Negative) 05/02/24 05:29
Patient Allergies
Latex, Natural Rubber Allergy (Verified 05/01/24 17:12)
Unknown
Penicillins Allergy (Verified 05/01/24 17:12)
Unknown
prochlorperazine [From Compazine] Allergy (Verified 05/01/24 17:12)
Unknown
Sulfa (Sulfonamide Antibiotics) Allergy (Verified 05/01/24 17:12)
Unknown
sumatriptan [From Imitrex] Allergy (Verified 05/01/24 17:12)
Unknown
Review of Systems
-
History Source: Patient
All other systems: Reviewed and negative
Neuro: Negative Dizzy or Headache
Physical Exam
-
General: No Apparent Distress and Appears Stated Age
Eyes: Round OU, Dillard Conjunctivae and No Ptosis
HEENT: Anicteric and Moist Mucous Membranes
Neck: Full Range of Motion
Respiratory: No Dyspnea
Cardiac: No JVD
GI: Non-distended
Skin: Unremarkable
Extremities: No Clubbing, No Cyanosis and No Edema
Psych: Intact Judgement/Insight
Extended Neurological Exam
Mood & Affect: Negative Affect Unremarkable (Mildly aloof?, Mildly restless)
Attention Span & Concentration: Awake, Alert and Interactive
Memory: Unremarkable
Tremor: Hand Tremor Absent and Head Tremor Absent
Speech: Quality Unremarkable and Quantity Unremarkable
Cranial Nerve II: Left Eye: Pupillary Size Unremarkable and Visual Celestin Grossly Intact
Cranial Nerve II: Right Eye: Pupillary Size Unremarkable and Visual Celestin Grossly Intact
Cranial Nerves III, IV, : Extraocular Movement: Grossly Intact
Cranial Nerve VII: Facial Symmetry: Normal Facial Symmetry
Cranial Nerve VIII: Hearing: Unremarkable Hearing to Normal Conversational Volume
Cranial Nerve XI: Shoulder Shrug: Unremarkable
Muscle Strength, Overall: Full in Upper Extremities
Muscle Bulk & Tone: Bulk Unremarkable and Tone Unremarkable
Pronator Drift: No Drift in Upper Extremities
Touch Sensation: Unremarkable
Coordination: [id number] Testing Unremarkable
Data Reviewed
-
MRI Head: Report Reviewed
EEG: Report Reviewed
Labs: Report Reviewed
Reviewed with: Physician, Patient and Family
Old Records: Summarized
Past History
Past History
ED Past Medical History: IDDM and Other (Anemia)
ED Past Surgical History: , Gynecological (Hysterectomy) and Other (Double mastectomy)
Social History
Tobacco: Non-smoker
Alcohol: None
Drug: None
Personal:
Living: with family
Medications
-
Medications:
Generic Name Dose Route Start Last Admin
Trade Name Freq PRN Reason Stop Dose Admin
Acetaminophen 650 mg 05/02/24 12:25 05/03/24 08:02
Acetaminophen 325 Mg Tablet PO 05/29/24 22:26 650 mg
Q4HPRN PRN Administration
Mild Pain / Temp > 100.4F/PRAKASH
Aspirin 81 mg 05/02/24 08:00 05/03/24 08:02
Aspirin 81 Mg (Enteric Coated) Tablet PO 05/30/24 07:59 81 mg
DAILY LAY Administration
Dextrose 12.5 grams 05/01/24 22:27
Dextrose 50% (0.5 Grams/Ml) 50 Ml Syringe IV 05/29/24 22:26
[id number] PRN
hypoglycemia
Protocol
Diltiazem HCl 180 mg 05/02/24 08:00 05/03/24 08:03
Diltiazem 180 Mg Extended Release (24 H) Capsule PO 05/30/24 07:59 180 mg
DAILY LAY Administration
Glucagon 1 mg 05/01/24 22:27
Glucagon 1 Mg Vial IM 05/29/24 22:26
PRN PRN
hypoglycemia
Protocol
Heparin Sodium 5,000 units 05/02/24 16:00 05/03/24 08:02
Heparin 5,000 Units/Ml 1 Ml Vial SC 05/30/24 15:59 5,000 units
Q8 LAY Administration
Lorazepam 1 mg 05/01/24 22:27
Lorazepam 2 Mg/Ml Vial IV 05/29/24 22:26
Q4HPRN PRN
Seizure activity
Ondansetron HCl 4 mg 05/01/24 22:27 05/03/24 08:04
Ondansetron 4 Mg/2 Ml Vial IV 05/29/24 22:26 4 mg
Q6HPRN PRN Administration
nausea and vomiting
Pantoprazole Sodium 40 mg 05/02/24 08:00 05/03/24 08:02
Pantoprazole 40 Mg Delayed Release Tablet PO 05/30/24 07:59 40 mg
DAILY LAY Administration
Patient Own Medication 0 units 05/02/24 22:00 05/03/24 08:59
Insulin Pump - Patient's Own SC 05/30/24 21:59 Not Given
ACHS LAY
Prednisone 5 mg 05/02/24 08:00 05/03/24 08:02
Prednisone 5 Mg Tablet PO 05/30/24 07:59 5 mg
DAILY LAY Administration
Sodium Chloride 0 flush 05/01/24 23:00
Sodium Chloride 0.9% (Flush) Syringe IV 05/29/24 22:59
PER PROTOCOL LAY
Sodium Chloride 0.5 ml 05/01/24 22:39
Nss (Pf) 10 Ml Vial For Ativan 1 Mg Dose IV 05/29/24 22:38
Q4HPRN PRN
IV LORAZEPAM DILUTION
Thiamine HCl 100 mg 05/02/24 12:00 05/03/24 08:02
Thiamine 100 Mg Tablet PO 05/04/24 08:01 100 mg
DAILY LAY Administration
--- NOTE | 2024-05-03 10:42 | W.PN.HOSP.TC ---
Today's Communication/Plan
-
UA pending
CXR
monitor fever/wbc curve
ID eval
Neuro recs
PT/OT
Assessment / Plan
Assessment / Plan
A/P: Patient is a 53y F with PMH significant for RA, Lupus, autoimmune hemolytic anemia and breast cancer who presents to ED for evaluation of mental status change / anxiety / etc.
Altered Mental Status-improved.
Anxiety / Restlessness
- CT head done in the ED was unremarkable.
- No other focal symptoms / complaints / etc.
- ? seizure activity with prolonged sleep this afternoon, staring episode and lower lip injury (unwitnessed)?
- MR brain with and without contrast-No acute intracranial abnormality noted.
- EEG noted and found to be negative.
- Etoh negative. UDS noted
- Follow for any new / focal symptoms or complaints.
- Follow for any evident seizure activity - PRN Ativan ordered in case needed.
- Neuro evaluation for additional recommendations.
Fever
-COVID and Influenza negative.
-Blood cultures in lab.
-UA w/reflex to cutlure pending
-CXR ordered
-Hold off on antibiotics.
-TTE negative for vegetations.
- Given chronic immunocompromise, etc - ? reactivation of viral process / [employer] involvement?
-need to r/o infectious work first before considering drug fevers
-ID eval requested.
Elevated troponin likely 2/2 non ischemic myocardial injury
-Trop downtrended
-Echo with Normal biventricular size and systolic function without regional wall motion abnormality. No significant valvular disease. Normal echocardiogram.
-Cardiology signed off-recs cont asa/statin
Rheumatoid Arthritis
Lupus
Autoimmune Hemolytic Anemia
Anemia of Chronic Disease
- No evidence of any acute flare, etc at present.
- Continue daily prednisone.
- Hold Rinvoq acutely.
DM-II
- Stable. Glucose fairly well controlled- no evidence of hypoglycemia.
- No anion gap acidosis.
- Continue home pump. Follow glucose and adjust as needed.
- Update A1C at 4.9.
Benign Hypertension
- BP (and pulse) elevated as noted above - ? secondary to anxiety versus other.
- Continue diltiazem with holding parameters.
- Monitor on telemetry.
History of Breast Cancer
- s/p bilateral mastectomy.
- Attempted chemo but stopped after one treatment due to intolerance.
- Follow-up has all been unremarkable per .
- Hold exemestane acutely - though this is not a new medication.
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
Mild hyponatremia
-monitor for now
DVT Prophylaxis: hep sc
Code Status: Full
Anticipated Discharge: > 48 hours
Subjective/Interval History
-
Date of Service: May 03, 2024
Feeling better
Denies cough
denies dysuria
denies loose bowel movements
no recent travel
no back pain or neck pain
no sick contacts
Objective Data
-
Labs:
Laboratory Results
05/03/24
06:48
WBC 3.4 L
Hgb 8.2 L
Hct 21.9 L
Plt Count 131
Sodium 128 L
Potassium 3.6
Chloride Pending
Carbon Dioxide 24
BUN 14
Creatinine 0.8
Glucose 68 L
Calcium 8.8
Total Bilirubin 2.0 H
AST 67 H
ALT 30
Alkaline Phosphatase 34 L
Vital Signs:
Vital Signs
Temp Pulse Resp BP Pulse Ox
100.4 F H 105 17 124/65 94
05/03/24 09:17 05/03/24 08:03 05/03/24 06:59 05/03/24 08:03 05/03/24 06:59
I&O
05/02/24 05/03/24 05/04/24
06:59 06:59 06:59
Intake Total 1200 / 1200
Output Total 250 / 250
Balance -250 / -250 1200 / 1200
Physical Exam
-
General: Well Developed, Well Nourished, No Apparent Distress and Comfortable
HEENT: Normocephalic, Atraumatic, Moist Mucous Membranes, No Ptosis, Nose Appears Normal, Ears Appear Normal, Neck Non Tender and Other (SUPPLE )
Respiratory: Clear to Auscultation
Cardiac: Regular Rhythm and S1/S2; Negative Murmur, Rub or Gallop
Breast: Deferred by me
GI: Soft, Nontender, Nondistended and Normal Bowel Sounds; Negative Organomegaly
Rectal: Deferred by Provider
Genito-urinary: Deferred by me
Musculoskeletal: No Clubbing, No Cyanosis and No Edema
Skin: Warm; Negative Rash
Neuro: Awake, Alert, Oriented, AO x 3 and Nonfocal/Grossly Intact; Negative Tremors, Sedated, Slurred Speech or Facial Droop
Psych: Calm
Data Reviewed
-
Total Time Spent with Patient (in minutes): 55
[2024-05-03 10:45] LABS: Chloride 94 mmol/L (98-107)
[2024-05-03 11:50] LABS: Glucose - Point of Care 118 mg/dl (70-99)
[2024-05-03] MEDS: PATIENT'S OWN INSULIN PUMP 12 UNITS SC (13:16)
[2024-05-03 13:31] LABS: Urine Albumin Trace (Neg - Trace); Urine Bilirubin Negative (Negative); Urine Character Clear (Clear); Urine Color Yellow; Urine Glucose Trace (Negative); Urine Ketone 3+ (Negative); Urine Leukocyte 2+ (Negative); Urine Nitrite Negative (Negative); Urine Occult Blood 1+ (Negative); Urine Specific Gravity 1.015 (<1.030); Urine Urobilinogen 1+ (Neg - 1+)
[2024-05-03 13:43] LABS: Urine Bacteria Few (Negative); Urine Squamous Cell >30 /LPF (Few)
[2024-05-03 13:44] LABS: Urine White Cell 16-20 /HPF (0-5)
--- NOTE | 2024-05-03 15:24 | PTCARENOTE ---
Pt c/o unrelieved nausea. MD made aware, Pepcid and Tums ordered, see MAR. Will continue to monitor.
[2024-05-03] MEDS: TUMS CHEWABLE TABLET 200 MG PO (15:26)
[2024-05-03] MEDS: PEPCID 20 MG PO (15:27)
--- NOTE | 2024-05-03 16:19 | CON.ID ---
Consultation
-
Date/Time Consultation Requested: 05/03/24 10:12
Date/Time Consultation Performed: 05/03/24 16:19
Requesting Provider: Dr Meredith
Performing Provider: Dr Gray
Reason for Consultation: Confusion / Anxiety
Chief Complaint / Past History
Chief Complaint
AMS
History of Present Illness
Ms Mcadams is a 53 year old female with history of RA/lupus and breast cancer s/p BL mastectomy s/p single cycle of chemotherapy, DM2 with insulin pump presenting here for AMS. Reports starting around 9:30 on 05/01, day of admission she had fevers
which she though was resolving, however later same day found her staring and she would only respond with 'I dont feel good.' noticed that she was having rigors. She was taken up to bed and when checked on about 3 hours later
remained confused and again saying she was feeling hot. She was brought to the ER. No fecent cough, dyspnea, sore throat, nausea, vomiting, diarrhea or dysuria. Was recently started or tirzepatide with 25 lbs of weight loss. No history of
seizure. Does have a history of autoimmune hemolytic anemia with baseline hgb in 8s - unsure exact cause. Yard gets sprayed for ticks and they havent seen one in years. No history of lyme or other tick born illnesses. Not on any injections for
lupus/ra and no recent high dose steroids
Since arrival here she has been febrile to a tmax of 101.7 - t curve increasing, bp stable, wbc initially 5.8 today 3.4, hgb 8.2 yesterday and today, plt 131, no L shift on arrival but present today, haptoglobin <10, cr 0.8, na 132 on arrival and
128 today, glucose 96 and a1c 4.9, t bili 1.5 today 2.0, ast 54 now 67, alt 30, alk phos 34, ldh 450, ua 16-20 wbc/hpf and many squamous cells, UDS positive for benzos, covid ag negative, 05/02 brain mrain with and w/o contrast: no acute abnormality,
CT head also nonrevealing, blood cultures x2 in progress no growth to date, urine culture pending, currently not on antibiotics, ID is consulted for assistance with management. Today only focal symptom is vomiting. Denies headaches, photophobia,
neck stiffness, sore throat, cough, sputum production, diarrhea, dysuria urgency, rashes.
Past History
Additional Past Medical History:
Rheumatoid Arthritis
Lupus
Autoimmune Hemolytic Anemia
Gestational DM / DM-II on Insulin Pump
Breast Cancer s/p Surgery (single chemo treatment)
Remote history of Migraines
GERD
Hypertension
Additional Past Surgical History:
Bilateral Mastectomy
Appendectomy
Cholecystectomy
Hysterectomy
Allergy History:
Latex, Natural Rubber Allergy (Verified 05/01/24 17:12)
Unknown
Penicillins Allergy (Verified 05/01/24 17:12)
Unknown
prochlorperazine [From Compazine] Allergy (Verified 05/01/24 17:12)
Unknown
Sulfa (Sulfonamide Antibiotics) Allergy (Verified 05/01/24 17:12)
Unknown
sumatriptan [From Imitrex] Allergy (Verified 05/01/24 17:12)
Unknown
Medications Reviewed: Yes
Social History
Tobacco: Non-Smoker
Alcohol: Occasional
Drug: None
Family History
Family History: Not Pertinent
Review of Systems
Review of Systems
General: Fever and Chills
All systems: All other systems were reviewed and were negative
Vital Signs
Temp Pulse Resp BP Pulse Ox
99.2 F 91 17 138/69 96
05/03/24 15:06 05/03/24 15:06 05/03/24 15:06 05/03/24 15:06 05/03/24 15:06
Physical Exam
Physical Exam
Constitutional: No Acute Distress
Head: Other (wound on lip)
Cardiovascular: Regular Rate and S1/S2; Negative Murmur or Rub
Pulmonary: Clear and Symmetric; Negative Wheezes, Rales or Rhonchi
Gastrointestinal: Soft, Non Tender, Non Distended and Normal Bowel Sounds
Skin: Warm and Dry; Negative Rash or Jaundice
Neurological: Awake
Lab / Diagnostic Study Results
05/03/24 06:48
05/03/24 06:48
Abs Immat Gran (auto) 0.0 10^3/uL (0-0.05) 05/03/24 06:48
Absolute Neuts (auto) 2.8 10^3/uL (1.4-6.5) 05/03/24 06:48
Absolute Lymphs (auto) 0.3 10^3/uL (1.2-3.4) L 05/03/24 06:48
Absolute Monos (auto) 0.3 10^3/uL (0.1-0.6) 05/03/24 06:48
Absolute Basos (auto) 0.0 10^3/uL (0-0.2) 05/03/24 06:48
Immature Gran % 0.6 % (0-0.5) H 05/03/24 06:48
Neutrophils % 81.7 % (42.2-75.2) H 05/03/24 06:48
Lymphocytes % 9.0 % (20.5-51.1) L 05/03/24 06:48
Monocytes % 8.4 % (1.7-9.3) 05/03/24 06:48
Eosinophils % 0.0 % (0-6) 05/03/24 06:48
Basophils % 0.3 % (0-2) 05/03/24 06:48
ESR 39 mm/hour (0-20) H 05/02/24 06:13
Ur Squamous Epith Cells >30 /LPF (Few) 05/03/24 13:18
Microbiology Results
Micro:
05/02/24 15:34 Blood Culture - Preliminary
Blood/Venous No Growth in 24 hours- Final report to follow
05/02/24 13:34 Blood Culture - Preliminary
Blood/Venous No Growth in 24 hours- Final report to follow
05/03/24 13:18 Urine Culture - Pending
Urine
05/01/24 20:11 Influenza Types A & B (YULIANA) - Final
Nasal Swab Negative for Influenza A & B, NAAT
Negative results must be combined with clinical observations
and patient history.
Nucleic Acid Amplification test (NAAT)performed on the
[employer] platform.
Assessment / Plan
Fevers
AMS
Possible Seizure
Possible UTI
- urine culture in progress, UA with abundant squamous cells, mild pyuria
- blood cultures x2 in progress
- ldh elevated, low na and mild transaminitis, h/o hemolytic anemia - check babesia smear
- lp may be considered if not improving
- CXR is planned for the AM
- follow clinically, if fevers do no resolve will likely start empiric ceftriaxone and doxycycline
[2024-05-03 16:39] LABS: Glucose - Point of Care 179 mg/dl (70-99)
--- NOTE | 2024-05-03 16:45 | PTCARENOTE ---
Pt c/o unrelieved nausea. MD made aware, verbal order provided, see MAR.
[2024-05-03] MEDS: REGLAN 10 MG IV ×2 (16:49→23:42)
[2024-05-03 17:12] LABS: Haptoglobin <10 mg/dL (30-200)
[2024-05-03 21:32] LABS: Glucose - Point of Care 88 mg/dl (70-99)
[2024-05-03] MEDS: MELATONIN 5 MG PO (23:39)
[2024-05-04] VITALS (10 sets, daily range): BP systolic 100–127; BP diastolic 58–79; PULSE 77–129; BMI 25.2
[2024-05-04] MEDS: TYLENOL 650 MG PO ×2 (03:32→11:18)
[2024-05-04 07:05] LABS: % Immature Granulocytes 0.5 % (0-0.5); % Lymphocytes 8.5 % (20.5-51.1); % Monocytes 8.5 % (1.7-9.3); % Neutrophils 82.5 % (42.2-75.2); Absolute Lymphocytes 0.2 10^3/uL (1.2-3.4); Absolute Monocytes 0.2 10^3/uL (0.1-0.6); Absolute Neutrophils 1.7 10^3/uL (1.4-6.5); Hematocrit 18.8 % (37.0-47.0); Mean Corp Hgb Conc. 37.2 g/dL (33.0-37.0); Mean Corpuscular Hgb 30.6 pg (27.0-31.0); Mean Corpuscular Volume 82.1 fL (81.0-99.0); Mean Platelet Volume 10.3 fL (7.4-10.4); Nucleated Red Blood Cells % 0 %; Platelet Count 97 10^3/uL (130-400); Red Blood Cell Count 2.29 10^6/uL (4.20-5.40); Red Cell Dist. Width 15.9 % (11.5-14.5)
--- NOTE | 2024-05-04 07:17 | PTCARENOTE ---
Lab informed this RN of critical HCT=18.8 and critical WBC=2.0. MD made aware, no new orders provided.
[2024-05-04 07:32] LABS: Glucose - Point of Care 83 mg/dl (70-99)
[2024-05-04] MEDS: PATIENT'S OWN INSULIN PUMP 6.8 UNITS SC (07:56)
[2024-05-04 07:58] LABS: ALT (SGPT) 27 U/L (0-35); AST (SGOT) 54 U/L (14-36); Albumin 3.7 g/dl (3.5-5.0); Alkaline Phosphatase 31 U/L (38-126); Blood Urea Nitrogen 15 mg/dl (7-17); Calcium 8.8 mg/dl (8.4-10.2); Carbon Dioxide 25 mmol/L (22-30); Chloride 97 mmol/L (98-107); Estimated Creatinine Clearance 59 ml/min; Glucose 105 mg/dl (70-99); Potassium 3.3 mmol/L (3.5-5.1); Sodium 132 mmol/L (135-145); Total Bilirubin 2.1 mg/dl (0.2-1.3); Total Protein 5.9 g/dl (6.3-8.2); eGFR > 60.00
[2024-05-04] MEDS: CARDIZEM CD 180 MG PO (08:03)
[2024-05-04] MEDS: ZOFRAN 4 MG IV (08:03)
[2024-05-04] MEDS: HEPARIN 5000 UNITS SC ×2 (08:03→15:42)
[2024-05-04] MEDS: PEPCID 20 MG PO (08:03)
[2024-05-04] MEDS: PROTONIX 40 MG PO (08:04)
[2024-05-04] MEDS: DELTASONE 5 MG PO (08:04)
[2024-05-04] MEDS: VITAMIN B1 100 MG PO (08:04)
[2024-05-04] MEDS: ASPIR LOW (ENTERIC COATED) 81 MG PO (08:04)
--- NOTE | 2024-05-04 08:50 | PTCARENOTE ---
Pt c/o unrelieved nausea. HR elevated, 100's - 120's. made aware, new order provided, see MAR.
[2024-05-04] MEDS: REGLAN 10 MG IV (09:10)
--- NOTE | 2024-05-04 09:38 | CON.ONC ---
Impression
Impression
53 year-old female with pmhx of autoimmune hemolytic anemia, RA/lupus, breast cancer, and diabetes admitted with altered mental status.
# Altered mental status
- etiology unclear, seizure vs toxic metabolic encephalopathy
- Neurology consulted and following, consider LP if symptoms worsen
- Head CT, Brain MRI, EEG show no acute abnormalities
- U/C pending, B/C no growth in 24hrs
- CXR pending
- ID following, not currently on antibiotics
- Patient is not confused today
# Autoimmune hemolytic anemia, anemia of chronic disease
- Currently asymptomatic, no chest pain, no shortness of breath
- Low haptoglobin, high LDH, high retic --> labs c/w hemolysis
- Per patient, baseline hemoglobin is ~8. Today Hgb is 7.0, will transfuse 1 unit PRBC
- Type and screen
- Transfuse if hemoglobin less than 7 and platelets less than 10k
- Mildly elevated ESR, no signs and symptoms of acute flare
- Likely in the setting of infection and RA/lupus
- Continue to hold Rinvoq
- Given mildly elevated AST and mild hyponatremia, tickborne illnesses a possible diagnosis
- Continue to monitor blood counts
- Iron studies pending
# Leukopenia
- Likely in the setting of chronic disease
- ANC 1.7
- Continue to monitor
# Nausea
- Abdominal x-ray pending
# Diabetes mellitus type 2
- Hemoglobin A1c 4.9
- Continue home pump
# History of breast cancer
- Status post bilateral mastectomy
- Exemestane held
Patient History
History of Present Illness
Patient is a 53-year-old female with a past medical history of autoimmune hemolytic anemia, RA/lupus, breast cancer status post bilateral mastectomy, and diabetes mellitus presenting with altered mental status and hot flashes. Patient was in her
usual state of health until 05/01/2024 around noontime when she was feeling confused and not her usual self. She has had intermittent fevers (up to 102.2 F) since admission and feels nauseous. Last episode of autoimmune hemolytic anemia was this
past summer when she had blood transfused at [place]. Notes no new changes in medication except for tirzepatide which was started in August. Patient had a similar episode of confusion last year that was worked up at outpatient and was
unremarkable. Reports no history of Lyme or other tickborne diseases. This admission, labs show wbc 2.0, hgb 7.0, plt 97. mildly elevated AST (54), T bilirubin 2.1, ESR 39, LDH 450, retic 4.0, haptoglobin <10. CT head and MRI brain acute
abnormality. Blood smear revealed no schistocytes or blood parasites. EEG not demonstrative of causative abnormalities. COVID negative. Patient is on prednisone 5mg daily for RA. Rinvoq and Exemestane have been held. Urine toxicology is positive
for benzodiazepines. B/C no growth in 24hrs and U/A shows wbc 16-20 with >30 squamous cells, bacteria few, rbc 3-6, occult blood 1+. U/C pending.
Past-Medical/Surgical History
Past medical history:
Autoimmune hemolytic anemia, RA/lupus, breast cancer s/p bilateral mastectomy, diabetes
Past surgical history:
Appendectomy, cholecystectomy, hysterectomy, mastectomy
Patient Medication
�Medication �Instructions �Recorded �Confirmed �Last Taken �Type
Patient Own Insulin Pump 0 units SC .VIA HUMALOG Diabetes 05/01/24 05/01/24 Unknown History
aspirin 81 mg tablet,delayed 81 mg PO DAILY Blood Clot 05/01/24 05/01/24 Unknown History
release Prevention/Tx
diltiazem HCl 180 mg capsule,24 180 mg PO DAILY Blood Pressure 05/01/24 05/01/24 Unknown History
hr,extended release
exemestane 25 mg tablet 25 mg PO DAILY Hormonal Agent 05/01/24 05/01/24 Unknown History
famotidine 20 mg tablet (Pepcid) 20 mg PO HS Gastrointestinal Issue 05/01/24 05/01/24 Unknown History
ibuprofen 400 mg tablet 400 mg PO Q6HPRN PRN mild pain 05/01/24 05/01/24 Unknown History
pantoprazole 40 mg tablet,delayed 40 mg PO DAILY Gastrointestinal 05/01/24 05/01/24 Unknown History
release (Protonix) Issue
prednisone 5 mg tablet 5 mg PO DAILY rheumatoid arthritis 05/01/24 05/01/24 Unknown History
rosuvastatin 5 mg tablet (Crestor) 5 mg PO QPM High Cholesterol 05/01/24 05/01/24 Unknown History
tirzepatide 5 mg/0.5 mL 5 mg SC FR Diabetes 05/01/24 05/01/24 Unknown History
subcutaneous pen injector
(Mounjaro)
upadacitinib 15 mg tablet,extended 15 mg PO DAILY Rheumatoid arthritis 05/01/24 05/01/24 Unknown History
release 24 hr (Rinvoq)
Active Medications
Generic Name Dose Route Start Last Admin
Trade Name Freq PRN Reason Stop Dose Admin
Acetaminophen 650 mg 05/02/24 12:25 05/04/24 03:32
Acetaminophen 325 Mg Tablet PO 05/29/24 22:26 650 mg
Q4HPRN PRN Administration
Mild Pain / Temp > 100.4F/PRAKASH
Aspirin 81 mg 05/02/24 08:00 05/04/24 08:04
Aspirin 81 Mg (Enteric Coated) Tablet PO 05/30/24 07:59 81 mg
DAILY LAY Administration
Calcium Carbonate 200 mg 05/03/24 15:04
Calcium Antacid 200 Mg (Calcium Carbonate 500 Mg) Chew Tablet PO 05/31/24 15:03
Q6HPRN PRN
reflux/nausea
Dextrose 12.5 grams 05/01/24 22:27
Dextrose 50% (0.5 Grams/Ml) 50 Ml Syringe IV 05/29/24 22:26
[id number] PRN
hypoglycemia
Protocol
Diltiazem HCl 180 mg 05/02/24 08:00 05/04/24 08:03
Diltiazem 180 Mg Extended Release (24 H) Capsule PO 05/30/24 07:59 180 mg
DAILY LAY Administration
Famotidine 20 mg 05/03/24 16:00 05/04/24 08:03
Famotidine 20 Mg Tablet PO 05/31/24 15:59 20 mg
DAILY LAY Administration
Glucagon 1 mg 05/01/24 22:27
Glucagon 1 Mg Vial IM 05/29/24 22:26
PRN PRN
hypoglycemia
Protocol
Heparin Sodium 5,000 units 05/02/24 16:00 05/04/24 08:03
Heparin 5,000 Units/Ml 1 Ml Vial SC 05/30/24 15:59 5,000 units
Q8 LAY Administration
Lorazepam 1 mg 05/01/24 22:27
Lorazepam 2 Mg/Ml Vial IV 05/29/24 22:26
Q4HPRN PRN
Seizure activity
Ondansetron HCl 4 mg 05/01/24 22:27 05/04/24 08:03
Ondansetron 4 Mg/2 Ml Vial IV 05/29/24 22:26 4 mg
Q6HPRN PRN Administration
nausea and vomiting
Pantoprazole Sodium 40 mg 05/02/24 08:00 05/04/24 08:04
Pantoprazole 40 Mg Delayed Release Tablet PO 05/30/24 07:59 40 mg
DAILY LAY Administration
Patient Own Medication 0 units 05/02/24 22:00 05/04/24 07:56
Insulin Pump - Patient's Own SC 05/30/24 21:59 6.8 units
ACHS LAY Administration
Prednisone 5 mg 05/02/24 08:00 05/04/24 08:04
Prednisone 5 Mg Tablet PO 05/30/24 07:59 5 mg
DAILY LAY Administration
Sodium Chloride 0 flush 05/01/24 23:00
Sodium Chloride 0.9% (Flush) Syringe IV 05/29/24 22:59
PER PROTOCOL LAY
Sodium Chloride 0.5 ml 05/01/24 22:39
Nss (Pf) 10 Ml Vial For Ativan 1 Mg Dose IV 05/29/24 22:38
Q4HPRN PRN
IV LORAZEPAM DILUTION
Review of Systems
-
History Source: Patient and Family
Physical Exam
-
General: Well Developed, Well Nourished and Other (Appears ill)
HEENT: Jaundice
Cardiology: Normal Sinus Rhythm, S1 and S2
Pulmonary: Clear
GI: Soft and Normal Bowel Sounds
Genito-Urinary: No Costovertebral Tenderness
Musculoskeletal: No Clubbing, No Cyanosis and No Edema
Skin: Other (Ecchymosis noted on upper extremities and abdomen)
Psych: Calm
Labs
Lab Results
WBC 2.0 10^3/uL (4.8-10.8) L* 05/04/24 06:10
RBC 2.29 10^6/uL (4.20-5.40) L 05/04/24 06:10
Hgb 7.0 g/dL (12.0-16.0) L 05/04/24 06:10
Hct 18.8 % (37.0-47.0) L* 05/04/24 06:10
MCV 82.1 fL (81.0-99.0) 05/04/24 06:10
MCH 30.6 pg (27.0-31.0) 05/04/24 06:10
MCHC 37.2 g/dL (33.0-37.0) H 05/04/24 06:10
RDW 15.9 % (11.5-14.5) H 05/04/24 06:10
Plt Count 97 10^3/uL (130-400) L D 05/04/24 06:10
MPV 10.3 fL (7.4-10.4) 05/04/24 06:10
Abs Immat Gran (auto) 0.0 10^3/uL (0-0.05) 05/04/24 06:10
Absolute Neuts (auto) 1.7 10^3/uL (1.4-6.5) 05/04/24 06:10
Absolute Lymphs (auto) 0.2 10^3/uL (1.2-3.4) L 05/04/24 06:10
Absolute Monos (auto) 0.2 10^3/uL (0.1-0.6) 05/04/24 06:10
Absolute Eos (auto) 0.0 10^3/uL (0-0.7) 05/04/24 06:10
Absolute Basos (auto) 0.0 10^3/uL (0-0.2) 05/04/24 06:10
Immature Gran % 0.5 % (0-0.5) 05/04/24 06:10
Neutrophils % 82.5 % (42.2-75.2) H 05/04/24 06:10
Lymphocytes % 8.5 % (20.5-51.1) L 05/04/24 06:10
Monocytes % 8.5 % (1.7-9.3) 05/04/24 06:10
Eosinophils % 0.0 % (0-6) 05/04/24 06:10
Basophils % 0.0 % (0-2) 05/04/24 06:10
Creatinine 0.9 mg/dL (0.6-1.0) 05/04/24 06:10
Vital Signs
Vital Signs
Temp Pulse Resp BP Pulse Ox
99.0 F 96 17 123/73 94
05/04/24 07:18 05/04/24 08:03 05/04/24 07:18 05/04/24 08:03 05/04/24 07:18
[2024-05-04] MEDS: KCL 20 MEQ PO (10:22)
--- NOTE | 2024-05-04 11:00 | PTCARENOTE ---
Pt OOB to BR, tachycardic. XM=663's-140's. No complaints. made aware.
[2024-05-04 11:39] LABS: Glucose - Point of Care 135 mg/dl (70-99)
[2024-05-04 12:12] LABS: Iron 50 ug/dl (37-170)
[2024-05-04 12:24] LABS: Percent Saturation 20 % (20-50); Total Iron Binding Capacity 239 ug/dl (265-497)
--- NOTE | 2024-05-04 12:34 | W.PN.HOSP.TC ---
Today's Communication/Plan
-
ID recs
trend fever/wbc curve
Heme eval
Hold Rinvoq
Transfuse 1u PRBC
Hemolysis causing Fever?
Assessment / Plan
Assessment / Plan
A/P: Patient is a 53y F with PMH significant for RA, Lupus, autoimmune hemolytic anemia and breast cancer who presents to ED for evaluation of mental status change / anxiety / etc.
Fever
-COVID and Influenza negative.
-Blood cultures in lab -negative so far.
-UA w/reflex to culture pending but no symptoms.
-CXR ordered -Negative for acute infiltrate
-AXR negative.
-Antibiotics per ID
-TTE negative for vegetations.
-Given chronic immunocompromise, etc - ? reactivation of viral process /low likelihood. AOX3 now.
-Blood parasite smear negative
-need to r/o infectious work first before considering drug fevers
-Currently with hemolysis and possibly could be because of fevers?
-ID following.
Elevated troponin likely 2/2 non ischemic myocardial injury
-Trop downtrended
-Echo with Normal biventricular size and systolic function without regional wall motion abnormality. No significant valvular disease. Normal echocardiogram.
-Cardiology signed off-recs cont asa/statin
Altered Mental Status-resolved
Anxiety / Restlessness
- CT head done in the ED was unremarkable.
- No other focal symptoms / complaints / etc.
- ? seizure activity with prolonged sleep this afternoon, staring episode and lower lip injury (unwitnessed)?
- MR brain with and without contrast-No acute intracranial abnormality noted.
- EEG noted and found to be negative.
- Etoh negative. UDS noted
- Follow for any new / focal symptoms or complaints.
- Follow for any evident seizure activity - PRN Ativan ordered in case needed.
- Neuro evaluation for additional recommendations.
Autoimmune Hemolytic Anemia
Anemia of Chronic Disease
- Patient with elevated reticulocyte count. Low haptoglobin and elevated LDH. Hemoglobin at 7-consistent with Hemolysis.
- Continue daily prednisone.
- Hematology consulted. Blood consent in chart. Plan for 1u for PRBC.
- Follows with Dr. Jacobs at [facility].
DM-II
- Stable. Glucose fairly well controlled- no evidence of hypoglycemia.
- No anion gap acidosis.
- Continue home pump. Follow glucose and adjust as needed.
- Update A1C at 4.9.
Benign Hypertension
- BP (and pulse) elevated as noted above - ? secondary to anxiety versus other.
- Continue diltiazem with holding parameters.
- Monitor on telemetry.
History of Breast Cancer
- s/p bilateral mastectomy.
- Attempted chemo but stopped after one treatment due to intolerance.
- Follow-up has all been unremarkable per .
- Per onc -okay to exemestane
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
Rheumatoid Arthritis
Lupus
- Hold Rinvoq acutely as w/Fevers
Mild hyponatremia
-monitor for now
DVT Prophylaxis: hep sc
Code Status: Full
PT/OT-Home on dc.
Anticipated Discharge: > 48 hours
Subjective/Interval History
-
Date of Service: May 04, 2024
states of some dry heaves
just had bm
spiking fever
aox3
Objective Data
-
Labs:
Laboratory Results
05/04/24
06:10
WBC 2.0 L*
Hgb 7.0 L
Hct 18.8 L*
Plt Count 97 L D
Sodium 132 L
Potassium 3.3 L
Chloride 97 L
Carbon Dioxide 25
BUN 15
Creatinine 0.9
Glucose 105 H
Calcium 8.8
Total Bilirubin 2.1 H
AST 54 H
ALT 27
Alkaline Phosphatase 31 L
Vital Signs:
Vital Signs
Temp Pulse Resp BP Pulse Ox
100.8 F H 97 17 117/66 95
05/04/24 11:09 05/04/24 11:09 05/04/24 11:09 05/04/24 11:09 05/04/24 11:09
I&O
05/03/24 05/04/24 05/05/24
06:59 06:59 06:59
Intake Total 1200 / 1200 1290 / 1290
Output Total 50 / 50
Balance 1200 / 1200 1240 / 1240
Data Reviewed
-
Total Time Spent with Patient (in minutes): 55
[2024-05-04 12:47] LABS: Ferritin 80.7 ng/ml (11.1-264.0)
[2024-05-04] MEDS: PATIENT'S OWN INSULIN PUMP 10.8 UNITS SC (13:00)
[2024-05-04 13:08] LABS: Folate 19.6 ng/ml (2.76-20); Vitamin B12 > 1000 pg/ml (239-931)
[2024-05-04 13:54] LABS: 24 Hour Urine Total Volume Random mL; Creatinine, Urine per Volume 84 mg/dL; Dopamine, Urine 133 ug/L; Dopamine/Creatinine Ratio 158 ug/g CRT (0-250); Epinephrine, Urine 16 ug/L; Epinephrine/Creatinine Ratio 19 ug/g CRT (0-20); Norepinephrine, Urine 56 ug/L; Norepinephrine/Creatinine Rat 67 ug/g CRT (0-45); Urine Collection Length Random hr
--- NOTE | 2024-05-04 14:27 | W.PN.ID1 ---
Date of Service
Date of Service: May 04, 2024
Today's Communication
empiric doxycycline and ceftriaxone
fever could be related to hemolysis
additional tick born illness testing: anaplasma/ehrlichia pcr, rickettsia serology, lyme serology
viral gastroenteritis also a possibility and would be self limited
Assessment / Plan
Fevers
Hemolysis with known hemolytic anemia
H/o breast cancer
Lupus/RA - on rinvoque
Immunosuppression
Leukocytopenia
- progression to leukopenia today, L shift persists, borderline neutropenic
- urine culture in progress, UA with abundant squamous cells, mild pyuria and sparse growth - unlikely the cause of fevers
- blood cultures x2 in progress no growth to date; repeat two sets now while febrile
- ldh elevated in setting of known hemolysis also low na and mild transaminitis - babesisa smear negative, also sent ehrlichia/anaplasma pcr, lyme serology, rickettsia serologies
- does report h/o autoimmune hepatitis - tries to avoid tylenol, fevers do not have to be treated from my perspective
- CXR clear
- viral gastroenteritis on the differential - typically self limited
- fever could be related to hemolysis, curve is improving
- start empiric ceftriaxone and doxycycline
follow clinically
Chief Complaint
-: Fever
Subjective / Review of Systems
fevers ongoing
bp stable
progression of leukocytopenia
hyponatremia noted
mild transaminitis
babesia smear negative
urine culture with sparse growth
blood cultures no growth to date
all of skin examined - there is bruising but no rashes
she is more oriented today and able to provide more history
we re did the ROS and its unchanged: no headaches, sinus tenderness, sore throat, cough, sputum proudction, abdominal pain, suprapubic tendnerness, new joint pains. She has bruising but no rashes.
ongoing nausea but vomiting has slowed down
yard is treated for ticks, no known insect bites, dog is indoor-outdoor and also treated for ticks, also has an indoor cat
patient does report frequent blood transfusions
travel has been in the last 3-6 months to the [place]
Vital Signs / Physical Exam
Vital Signs
Vital Signs
Temp Pulse Resp BP Pulse Ox
98.7 F 97 17 117/66 95
05/04/24 12:45 05/04/24 11:09 05/04/24 11:09 05/04/24 11:09 05/04/24 11:09
Physical Exam
Constitutional: No Acute Distress
Cardiovascular: Regular Rate and S1/S2; Negative Murmur or Rub
Pulmonary: Clear and Symmetric; Negative Wheezes or Rales
Gastrointestinal: Soft, Non Tender, Non Distended and Normal Bowel Sounds
Skin: Warm, Dry and Other (there is scattered bruising ); Negative Rash or Jaundice
Neurological: Awake and Oriented
Objective Data
Lab Data
Lab Results
05/04/24 06:10
05/04/24 06:10
ESR 39 mm/hour (0-20) H 05/02/24 06:13
Estimated Creat Clear 59 ml/min 05/04/24 06:10
Total Bilirubin 2.1 mg/dl (0.2-1.3) H 05/04/24 06:10
AST 54 U/L (14-36) H 05/04/24 06:10
ALT 27 U/L (0-35) 05/04/24 06:10
Alkaline Phosphatase 31 U/L (38-126) L 05/04/24 06:10
Most recent labs reviewed.
AXR no obstruction
CXR no acute process
Micro Results:
05/02/24 13:34 Blood Culture - Preliminary
Blood/Venous No Growth in 48 hours- Final report to follow
05/03/24 13:18 Urine Culture - Preliminary
Urine Sparse growth, too young to be identified. Further results
to follow.
05/04/24 06:10 Blood Parasites Smear - Preliminary
Blood/Venous No blood parasites seen.
05/02/24 15:34 Blood Culture - Preliminary
Blood/Venous No Growth in 24 hours- Final report to follow
05/01/24 20:11 Influenza Types A & B (YULIANA) - Final
Nasal Swab Negative for Influenza A & B, NAAT
Negative results must be combined with clinical observations
and patient history.
Nucleic Acid Amplification test (NAAT)performed on the
[employer] platform.
Care Review
Plan reviewed with: Physician (Dr Meredith - fel[facility])
--- NOTE | 2024-05-04 14:56 | PTCARENOTE ---
1 unit PRBC started as ordered. Temperature elevated, made aware, new order provided, see MAR. Will continue to monitor.
[2024-05-04] MEDS: STERILE WATER FOR INJECTION 20 ML IV (15:42)
[2024-05-04] MEDS: ROCEPHIN 2000 MG IV (15:42)
[2024-05-04] MEDS: MOTRIN 400 MG PO (15:42)
[2024-05-04] MEDS: AROMASIN 25 MG PO (15:42)
[2024-05-04 17:00] LABS: Glucose - Point of Care 116 mg/dl (70-99)
[2024-05-04] MEDS: PATIENT'S OWN INSULIN PUMP 3.47 UNITS SC (17:30)
[2024-05-04] MEDS: VIBRAMYCIN 260 MG IV (18:06)
[2024-05-04] MEDS: MELATONIN 5 MG PO (20:38)
[2024-05-04] MEDS: ATIVAN 0.25 MG PO (20:38)
[2024-05-04] MEDS: PATIENT'S OWN INSULIN PUMP SC (21:43)
[2024-05-04 22:22] LABS: Glucose - Point of Care 91 mg/dl (70-99)
[2024-05-04] MEDS: HEPARIN SC (23:17)
[2024-05-05 03:55] VITALS: BP 109/60
[2024-05-05] MEDS: VIBRAMYCIN 260 MG IV ×2 (04:36→16:09)
[2024-05-05 04:45] VITALS: BMI 25.2
[2024-05-05 06:37] LABS: Hematocrit 21.9 % (37.0-47.0); Hemoglobin 8.1 g/dL (12.0-16.0); Mean Corpuscular Hgb 30.7 pg (27.0-31.0); Mean Platelet Volume 10.8 fL (7.4-10.4); Platelet Count 99 10^3/uL (130-400); Red Blood Cell Count 2.64 10^6/uL (4.20-5.40); Red Cell Dist. Width 17.5 % (11.5-14.5); White Blood Cell Count 1.5 10^3/uL (4.8-10.8)
[2024-05-05 07:07] VITALS: BP 127/72
[2024-05-05 07:07] LABS: Glucose - Point of Care 122 mg/dl (70-99)
[2024-05-05] MEDS: ASPIR LOW (ENTERIC COATED) 81 MG PO (08:12)
[2024-05-05] MEDS: CARDIZEM CD 180 MG PO (08:12)
[2024-05-05] MEDS: PROTONIX 40 MG PO (08:13)
[2024-05-05] MEDS: DELTASONE 5 MG PO (08:13)
[2024-05-05] MEDS: PEPCID 20 MG PO (08:13)
[2024-05-05] MEDS: HEPARIN 5000 UNITS SC ×3 (08:13→23:06)
[2024-05-05] MEDS: AROMASIN 25 MG PO (08:13)
[2024-05-05] MEDS: PATIENT'S OWN INSULIN PUMP 8.74 UNITS SC (08:20)
[2024-05-05] MEDS: KCL 20 MEQ PO (08:27)
[2024-05-05 09:59] LABS: % Eosinophils 0.7 % (0-6); % Immature Granulocytes 0.7 % (0-0.5); % Lymphocytes 28.8 % (20.5-51.1); % Monocytes 11.6 % (1.7-9.3); % Neutrophils 58.2 % (42.2-75.2); Absolute Lymphocytes 0.4 10^3/uL (1.2-3.4); Absolute Monocytes 0.2 10^3/uL (0.1-0.6); Absolute Neutrophils 0.9 10^3/uL (1.4-6.5); Nucleated Red Blood Cells % 0 %
[2024-05-05 10:19] LABS: Lyme Antibody Screen, EIA Negative (Negative)
--- NOTE | 2024-05-05 11:20 | W.PN.HOSP.TC ---
Today's Communication/Plan
-
Trend WBC and fever curve
Continue with prophylactic antibiotic
Await for serologies
Blood cultures negative
Trend CBC
Assessment / Plan
Assessment / Plan
A/P: Patient is a 53y F with PMH significant for RA, Lupus, autoimmune hemolytic anemia and breast cancer who presents to ED for evaluation of mental status change / anxiety / etc.
Fever
Chronic immunosuppressive state with leukopenia and now neutropenia
-COVID and Influenza negative.
-Blood cultures in lab -negative so far.
-UA w/reflex to culture pending but no symptoms.
-CXR ordered -Negative for acute infiltrate
-AXR negative.
-Antibiotics per ID
-TTE negative for vegetations.
-Given chronic immunocompromise, etc - ? reactivation of viral process /low likelihood. AOX3 now.
-Blood parasite smear negative. Additional tickborne blood work was sent Ehrlichia/Anaplasma and Lyme serology and Rickettsia
-Started on ceftriaxone and doxycycline
-need to r/o infectious work first before considering drug fevers
-Currently with hemolysis and possibly could cause of fevers?
-Fever curve improving and last fever noted on 05/04 at 2:52 PM
-ID following.
Elevated troponin likely 2/2 non ischemic myocardial injury
-Trop downtrended
-Echo with Normal biventricular size and systolic function without regional wall motion abnormality. No significant valvular disease. Normal echocardiogram.
-Cardiology signed off-recs cont asa/statin
Altered Mental Status-resolved
Anxiety / Restlessness
- CT head done in the ED was unremarkable.
- No other focal symptoms / complaints / etc.
- ? seizure activity with prolonged sleep this afternoon, staring episode and lower lip injury (unwitnessed)?
- MR brain with and without contrast-No acute intracranial abnormality noted.
- EEG noted and found to be negative.
- Etoh negative. UDS noted
- Follow for any new / focal symptoms or complaints.
- Follow for any evident seizure activity - PRN Ativan ordered in case needed.
- Neuro evaluation for additional recommendations.
Autoimmune Hemolytic Anemia
Anemia of Chronic Disease
- Patient with elevated reticulocyte count. Low haptoglobin and elevated LDH. Hemoglobin at 7-consistent with Hemolysis.
- Continue daily prednisone.
- Hematology consulted. Blood consent in chart. s/p 1u for PRBC. Hgb at 8.1
- Follows with Dr. Jacobs at [facility].
DM-II
- Stable. Glucose fairly well controlled- no evidence of hypoglycemia.
- No anion gap acidosis.
- Continue home pump. Follow glucose and adjust as needed.
- Update A1C at 4.9.
Benign Hypertension
- BP (and pulse) elevated as noted above - ? secondary to anxiety versus other.
- Continue diltiazem with holding parameters.
- Monitor on telemetry.
History of Breast Cancer
- s/p bilateral mastectomy.
- Attempted chemo but stopped after one treatment due to intolerance.
- Follow-up has all been unremarkable per .
- Per onc -okay to exemestane
Rheumatoid Arthritis
Lupus
- Hold Rinvoq acutely as w/Fevers
History of autoimmune hepatitis
Mild hyponatremia
-monitor for now
DVT Prophylaxis: hep sc
Code Status: Full
PT/OT-Home on dc.
Anticipated Discharge: 24 - 48 hours
Subjective/Interval History
-
Date of Service: May 05, 2024
states feeling alot better
ambulating in room without any difficulty
tolerating diet
frequency of fever decreasing
Objective Data
-
Labs:
Laboratory Results
05/05/24
06:03
WBC 1.5 L*
Hgb 8.1 L
Hct 21.9 L
Plt Count 99 L
Vital Signs:
Vital Signs
Temp Pulse Resp BP Pulse Ox
98.7 F 87 16 127/72 97
05/05/24 07:07 05/05/24 07:07 05/05/24 07:07 05/05/24 07:07 05/05/24 07:07
I&O
05/04/24 05/05/24 05/06/24
06:59 06:59 06:59
Intake Total 1290 / 1290 1070 / 1070
Output Total 50 / 50
Balance 1240 / 1240 1070 / 1070
Physical Exam
-
General: Well Developed, Well Nourished, No Apparent Distress and Comfortable
HEENT: Normocephalic, Atraumatic, Moist Mucous Membranes, No Ptosis, Nose Appears Normal, Ears Appear Normal, Neck Non Tender and Other (SUPPLE )
Respiratory: Clear to Auscultation
Cardiac: Regular Rhythm and S1/S2; Negative Murmur, Rub or Gallop
Breast: Deferred by me
GI: Soft, Nontender, Nondistended and Normal Bowel Sounds; Negative Organomegaly
Rectal: Deferred by Provider
Genito-urinary: Deferred by me
Musculoskeletal: No Clubbing, No Cyanosis and No Edema
Skin: Warm; Negative Rash
Neuro: Awake, Alert, Oriented, AO x 3 and Nonfocal/Grossly Intact; Negative Tremors, Sedated, Slurred Speech or Facial Droop
Psych: Calm
Data Reviewed
-
Total Time Spent with Patient (in minutes): 55
[2024-05-05 11:22] VITALS: BP 120/73
[2024-05-05 11:31] LABS: Glucose - Point of Care 119 mg/dl (70-99)
[2024-05-05] MEDS: PATIENT'S OWN INSULIN PUMP 4 UNITS SC (11:35)
--- NOTE | 2024-05-05 14:05 | PTOTSP ---
The patient is independent with ambulation and elevations, offering no concerns regarding her mobility upon return home. No further PT needs at this time, will sign off.
--- NOTE | 2024-05-05 14:31 | W.PN.ID1 ---
Date of Service
Date of Service: May 05, 2024
Today's Communication
- c/w empiric ceftriaxone and doxycycline
follow clinically
Assessment / Plan
Fevers
Hemolysis with known hemolytic anemia
H/o breast cancer
Lupus/RA - on rinvoque
Immunosuppression
Leukocytopenia
- follow ANC
- fever may have resolved, hgb now stable
- urine culture 100 K mixed ulices - unlikely the cause of fevers
- blood cultures no growth to date
- ldh elevated in setting of known hemolysis also low na and mild transaminitis - babesisa smear negative, also sent ehrlichia/anaplasma pcr, lyme serology, rickettsia serologies
- viral gastroenteritis on the differential - typically self limited; vomiting has resolved
- fever could be related to hemolysis, curve is improving
- c/w empiric ceftriaxone and doxycycline
follow clinically
Chief Complaint
-: Fever
Subjective / Review of Systems
no fevers for about 24 hours
bp stable
hgb improved 1 point
now neutropenic
while she has been chronically mildly leukopenia in the setting of immunosuppression, today is the first time she can recall being frankly neutropenic
no complaints
Vital Signs / Physical Exam
Vital Signs
Vital Signs
Temp Pulse Resp BP Pulse Ox
99.1 F 89 18 120/73 97
05/05/24 11:22 05/05/24 11:22 05/05/24 11:22 05/05/24 11:22 05/05/24 11:22
Physical Exam
Constitutional: No Acute Distress
Cardiovascular: Regular Rate and S1/S2; Negative Murmur or Rub
Pulmonary: Clear and Symmetric; Negative Wheezes or Rales
Gastrointestinal: Soft, Non Tender, Non Distended and Normal Bowel Sounds
Skin: Warm and Dry; Negative Rash or Jaundice
Objective Data
Lab Data
Lab Results
05/04/24 06:10
ESR 39 mm/hour (0-20) H 05/02/24 06:13
Estimated Creat Clear 59 ml/min 05/04/24 06:10
Total Bilirubin 2.1 mg/dl (0.2-1.3) H 05/04/24 06:10
AST 54 U/L (14-36) H 05/04/24 06:10
ALT 27 U/L (0-35) 05/04/24 06:10
Alkaline Phosphatase 31 U/L (38-126) L 05/04/24 06:10
Most recent labs reviewed.
Micro Results:
05/02/24 13:34 Blood Culture - Preliminary
Blood/Venous No Growth in 72 hours- Final report to follow
05/03/24 13:18 Urine Culture - Final
Urine
05/04/24 15:58 Blood Culture - Pending
Blood/Venous
05/04/24 15:36 Blood Culture - Pending
Blood/Venous
05/02/24 15:34 Blood Culture - Preliminary
Blood/Venous No Growth in 48 hours- Final report to follow
05/04/24 06:10 Blood Parasites Smear - Final
Blood/Venous
05/01/24 20:11 Influenza Types A & B (YULIANA) - Final
Nasal Swab Negative for Influenza A & B, NAAT
Negative results must be combined with clinical observations
and patient history.
Nucleic Acid Amplification test (NAAT)performed on the
[employer] platform.
--- NOTE | 2024-05-05 14:51 | PN.CDI ---
CDI
- -
CDI:
Physician Documentation Request
Admit Date: 05/01/24 22:05
Dear Doctor Viri,
Patient admitted for fever.
Laboratory Tests
05/04/24 05/05/24
06:10 06:03
WBC 2.0 L* 1.5 L*
RBC 2.29 L 2.64 L
Hgb 7.0 L 8.1 L
Plt Count 97 L D 99 L
Based on the above, could you clarify in the progress notes, the appropriate diagnosis, if significant, that supports the above abnormalities and additional evaluation, monitoring and/or treatment rendered:
Pancytopenia
Abnormal lab value insignificant
Other
Use of terms such as suspected, likely, concern for, or probable (associated with a specific diagnosis that is being evaluated, monitored, or treated as if it exists) are acceptable and can be coded in the inpatient setting, when documented at the
time of discharge.
Thank you,
Siria Corcoran RN, BSN
CDI Specialist
Available via [place] text
Please use your independent medical judgment in providing your response.
[2024-05-05 15:03] VITALS: BP 125/73
[2024-05-05] MEDS: STERILE WATER FOR INJECTION 20 ML IV (16:08)
[2024-05-05] MEDS: ROCEPHIN 2000 MG IV (16:08)
[2024-05-05 17:50] LABS: Glucose - Point of Care 211 mg/dl (70-99)
[2024-05-05] MEDS: PATIENT'S OWN INSULIN PUMP 21.22 UNITS SC (17:57)
[2024-05-05 21:26] LABS: Glucose - Point of Care 167 mg/dl (70-99)
[2024-05-05] MEDS: ATIVAN 0.25 MG PO (21:37)
[2024-05-05] MEDS: PATIENT'S OWN INSULIN PUMP SC (21:40)
[2024-05-05 21:47] LABS: % Eosinophils 0.5 % (0-6); % Immature Granulocytes 0.5 % (0-0.5); Absolute Lymphocytes 0.9 10^3/uL (1.2-3.4); Absolute Monocytes 0.3 10^3/uL (0.1-0.6); Absolute Neutrophils 0.9 10^3/uL (1.4-6.5); Hematocrit 21.4 % (37.0-47.0); Hemoglobin 7.9 g/dL (12.0-16.0); Mean Corp Hgb Conc. 36.9 g/dL (33.0-37.0); Mean Corpuscular Hgb 30.3 pg (27.0-31.0); Mean Platelet Volume 11.3 fL (7.4-10.4); Nucleated Red Blood Cells % 0 %; Platelet Count 120 10^3/uL (130-400); Red Blood Cell Count 2.61 10^6/uL (4.20-5.40); Red Cell Dist. Width 17.3 % (11.5-14.5); White Blood Cell Count 2.1 10^3/uL (4.8-10.8)
[2024-05-05 23:42] VITALS: BP 124/69
[2024-05-06] MEDS: VIBRAMYCIN 260 MG IV ×2 (04:53→16:51)
[2024-05-06 06:00] VITALS: BMI 24.7
[2024-05-06 06:13] LABS: Hematocrit 21.8 % (37.0-47.0); Hemoglobin 7.6 g/dL (12.0-16.0); Mean Corp Hgb Conc. 34.9 g/dL (33.0-37.0); Mean Corpuscular Hgb 29.8 pg (27.0-31.0); Mean Corpuscular Volume 85.5 fL (81.0-99.0); Platelet Count 110 10^3/uL (130-400); Red Blood Cell Count 2.55 10^6/uL (4.20-5.40); Red Cell Dist. Width 17.5 % (11.5-14.5); White Blood Cell Count 1.7 10^3/uL (4.8-10.8)
[2024-05-06 06:37] LABS: Blood Urea Nitrogen 17 mg/dl (7-17); Calcium 8.7 mg/dl (8.4-10.2); Carbon Dioxide 24 mmol/L (22-30); Chloride 105 mmol/L (98-107); Estimated Creatinine Clearance 67 ml/min; Glucose 119 mg/dl (70-99); Potassium 3.4 mmol/L (3.5-5.1); Sodium 141 mmol/L (135-145); eGFR > 60.00
[2024-05-06] MEDS: HEPARIN 5000 UNITS SC ×2 (07:28→15:56)
[2024-05-06] MEDS: PEPCID 20 MG PO (07:28)
[2024-05-06] MEDS: ASPIR LOW (ENTERIC COATED) 81 MG PO (07:28)
[2024-05-06] MEDS: PROTONIX 40 MG PO (07:28)
[2024-05-06] MEDS: CARDIZEM CD 180 MG PO (07:28)
[2024-05-06] MEDS: AROMASIN 25 MG PO (07:28)
[2024-05-06] MEDS: DELTASONE 5 MG PO (07:28)
[2024-05-06 07:39] VITALS: BP 115/69
[2024-05-06 07:40] LABS: % Basophils 0.6 % (0-2); % Eosinophils 0.6 % (0-6); % Immature Granulocytes 0.6 % (0-0.5); % Lymphocytes 26.7 % (20.5-51.1); % Monocytes 14.5 % (1.7-9.3); Absolute Lymphocytes 0.4 10^3/uL (1.2-3.4); Absolute Monocytes 0.2 10^3/uL (0.1-0.6); Absolute Neutrophils 0.9 10^3/uL (1.4-6.5); Nucleated Red Blood Cells % 0 %
[2024-05-06 07:48] LABS: Glucose - Point of Care 167 mg/dl (70-99)
[2024-05-06] MEDS: PATIENT'S OWN INSULIN PUMP 15 UNITS SC (08:06)
[2024-05-06] MEDS: KCL 40 MEQ PO (08:54)
--- NOTE | 2024-05-06 08:57 | W.PN.ONC ---
Documented by User: Nichol Arellano MD, Resident 05/06/24 12:48
Today's Communication / Plan
-
Appreciate ID input for continuation of antibiotics
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
Continue to monitor blood counts closely
Impression
Impression
53 year-old female with pmhx of autoimmune hemolytic anemia, RA/lupus, breast cancer, and diabetes admitted with altered mental status.
# Altered mental status
- etiology unclear, seizure vs toxic metabolic encephalopathy
- Neurology consulted and following, consider LP if symptoms worsen
- Head CT, Brain MRI, EEG show no acute abnormalities
- B/C no growth in 24hrs
- U/C >100,000 cfu/mL mixed ulices, probable contamination
- CXR no acute abnormality
- ID following, currently on ceftriaxone + doxycycline (day 3)
- Patient has been alert for the past 3 days
# Autoimmune hemolytic anemia, anemia of chronic disease
- Currently asymptomatic, no chest pain, no shortness of breath
- Low haptoglobin, high LDH, high retic
- LATRELL negative --> no active hemolysis today
- Per patient, baseline hemoglobin is ~8. Status post 1 unit PRBC. Today Hgb is 7.6
- Transfuse if hemoglobin less than 7 and platelets less than 10k
- Mildly elevated ESR, no signs and symptoms of acute flare
- Likely in the setting of infection and RA/lupus
- Continue to hold Rinvoq
- Given mildly elevated AST and mild hyponatremia, tickborne illnesses a possible diagnosis, Lyme negative, Rickettsia pending
- Continue to monitor blood counts
- Iron studies show no iron deficiency
# Leukopenia
- Likely in the setting of chronic disease and infection
- Now neutropenic, ANC 0.9, related to antibiotics use?
- Could consider bone marrow biopsy given pancytopenia without evidence of active hemolysis and RA/SLE flare
# Nausea
- Abdominal x-ray no acute abnormality
# Diabetes mellitus type 2
- Hemoglobin A1c 4.9
- Continue home pump
# History of breast cancer
- Status post bilateral mastectomy
- Continue exemestane
Subjective/Objective
Subjective/Objective
Vital Signs:
Vital Signs
Temp Pulse Resp BP Pulse Ox
98.2 F 92 17 115/69 99
05/06/24 07:39 05/06/24 07:39 05/06/24 07:39 05/06/24 07:39 05/06/24 07:39
Lab Results:
Laboratory Data
WBC 1.7 10^3/uL (4.8-10.8) L* 05/06/24 05:52
Hgb 7.6 g/dL (12.0-16.0) L 05/06/24 05:52
Plt Count 110 10^3/uL (130-400) L 05/06/24 05:52
eGFR > 60.00 05/06/24 05:52

Documented by User: Herber Elias MD 05/06/24 13:03
Impression
Impression
53 year-old female with pmhx of autoimmune hemolytic anemia, RA/lupus, breast cancer, and diabetes admitted with altered mental status.
# Altered mental status
- etiology unclear, seizure vs toxic metabolic encephalopathy
- Neurology consulted and following, consider LP if symptoms worsen
- Head CT, Brain MRI, EEG show no acute abnormalities
- B/C no growth in 24hrs
- U/C >100,000 cfu/mL mixed ulices, probable contamination
- CXR no acute abnormality
- ID following, currently on ceftriaxone + doxycycline (day 3)
- Patient has been alert for the past 3 days
# Autoimmune hemolytic anemia, anemia of chronic disease
- Currently asymptomatic, no chest pain, no shortness of breath
- Low haptoglobin, high LDH, high retic
- LATRELL negative --> no active hemolysis today
- Per patient, baseline hemoglobin is ~8. Status post 1 unit PRBC. Today Hgb is 7.6
- Transfuse if hemoglobin less than 7 and platelets less than 10k
- Mildly elevated ESR, no signs and symptoms of acute flare
- Likely in the setting of infection and RA/lupus
- Continue to hold Rinvoq
- Given mildly elevated AST and mild hyponatremia, tickborne illnesses a possible diagnosis, Lyme negative, Rickettsia pending
- Continue to monitor blood counts
- Iron studies show no iron deficiency
# Leukopenia
- Likely in the setting of chronic disease and infection
- Now neutropenic, ANC 0.9, med related - Rinvoq - related to antibiotics use?
# Nausea
- Abdominal x-ray no acute abnormality
# Diabetes mellitus type 2
- Hemoglobin A1c 4.9
- Continue home pump
# History of breast cancer
- Status post bilateral mastectomy
- Continue exemestane
Plan
Plan
Oncology/ Hematology Addendum:
Pt seen and evaluated w/ medical assembler and agree w/ resident note and plan as outlined
1. Anemia - h/o AIHA
-per patient baseline hemoglobin 8g/dl - w/ tx in past w/ steroids - not recently
-pt followed by Dr. Jacobs [facility] - will attempt to reach out to Dr. Jacobs to ascertain baseline CBCs
-per pt she has not had bone marrow evaluation
-LATRELL today was negative - retic was 4% - does not appear to be significantly hemolyzing
-hemoglobin stable today 7.6g/dl
-continue to follow CBC
2. Leukopenia - acute/ chronic
-baseline - total WBC 5522-3326 - w/ h/o RA/ lupus on immunosuppressive therapy
-rinvoq can cause leukopenia
-infection?/ antibiotics - ceftriaxone - could be contributing factors
-could consider rheumatology consultation/ evaluation as could be contributing to current clinical symptomatology
3. Fevers - unclear etiology
-ID following - cultures w/u ongoing - negative to date
-antibiotics as per ID
Patient will return to Dr. Jacobs, hematology, upon d/c. Will continue to follow with you.
--- NOTE | 2024-05-06 11:24 | PN.DE.MGMTRT ---
Insulin Management
- -
05/06/2024: Consult for insulin pump management
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 Pt presented to the ED for evaluation of mental status
change / anxiety. Pt follows with [facility] for routine diabetes mgt. Was using tandem T-Slim insulin pump with Humalog insulin and CGM- [employer] G6.
Diabetes consult requested today for mgt of insulin pump in anticipation to start steroid therapy. A1C 4.9% (NOTE hx of hemolytic anemia), Cr 0.8, eGFR>60
Glucose has been stable and in range since admission, FBG 119(V), 167 POC this AM.
Current pump settings
Basal ICR ICF Target goal
7- 4:30 1.2 1:3 1:25 110
4:30- 9P 1.3 1:3 1:25 110
9P- MN 1.2 1:3 1:25 110
MN- 3A 0.7 1:3 1:30 110
3A- 5:30 1 1:3 1:30 110
5:30- 7A 1.2 1:3 1:30 110
24 hrs total insulin 27.25 units
Insulin duration 5hrs. Change diet to 1800 ayala, pt is 5'3' diet change d/w pt and she was agreeable.
Pt is fully capable of managing insulin pump and adm bolus at meals.
Discussed with Hematology at bedside plan to initiate steroids, and according to Dr. Elias, no indication for steroid use at this time.
Will make no changes to current pump settings
Discussed above plan with pt's Nurse and instructed to have bedside work sheet available for pt to document insulin adm.
Diabetes History
- -
Type of Diabetes: 1
Pre-Admission Diabetes Regimen
05/06/24
05:52
Creatinine 0.8
Lab Results
Hemoglobin A1c 4.9 % (4.0-5.6) 05/02/24 06:13
Insulin Pump Settings
IP Diabetes Regimen
05/05/24 05/05/24 05/05/24
11:26 17:48 21:24
Glucose
POC Glucose 119 H 211 H 167 H
05/06/24 05/06/24
05:52 07:47
Glucose 119 H
POC Glucose 167 H
Meal type: Breakfast
Amount consumed: 100%
Patient Education
[2024-05-06 11:33] LABS: ALT (SGPT) 25 U/L (0-35); AST (SGOT) 42 U/L (14-36); Albumin 3.7 g/dl (3.5-5.0); Alkaline Phosphatase 36 U/L (38-126); Direct Bilirubin 0.4 mg/dl (0.0-0.4); Total Bilirubin 1.8 mg/dl (0.2-1.3)
[2024-05-06 11:53] LABS: Glucose - Point of Care 112 mg/dl (70-99)
[2024-05-06] MEDS: PATIENT'S OWN INSULIN PUMP 13.89 UNITS SC (12:28)
--- NOTE | 2024-05-06 13:34 | W.PN.HOSP.TC ---
Today's Communication/Plan
-
trend hgb.
IV abx
await final culture
Assessment / Plan
Assessment / Plan
A/P: Patient is a 53y F with PMH significant for RA, Lupus, autoimmune hemolytic anemia and breast cancer who presents to ED for evaluation of mental status change / anxiety / etc.
Fever
Chronic immunosuppressive state with leukopenia and now neutropenia
-COVID and Influenza negative.
-Blood cultures in lab x 2 -negative so far.
-UA w/reflex to culture mixed ulices.
-CXR ordered -Negative for acute infiltrate
-AXR negative.
-Antibiotics per ID
-TTE negative for vegetations.
-Given chronic immunocompromise, etc - ? reactivation of viral process /low likelihood. AOX3 now.
-Blood parasite smear negative. Additional tickborne blood work was sent Ehrlichia/Anaplasma and Rickettsia pending.
-Started on ceftriaxone and doxycycline
-need to r/o infectious work first before considering drug fevers
-Currently with hemolysis and possibly could cause of fevers?
-Fever curve improving and last fever noted on 05/04 at 2:52 PM
-ID following.
Elevated troponin likely 2/2 non ischemic myocardial injury
-Trop downtrended
-Echo with Normal biventricular size and systolic function without regional wall motion abnormality. No significant valvular disease. Normal echocardiogram.
-Cardiology signed off-recs cont asa/statin
Altered Mental Status-resolved
Anxiety / Restlessness
- CT head done in the ED was unremarkable.
- No other focal symptoms / complaints / etc.
- ? seizure activity with prolonged sleep this afternoon, staring episode and lower lip injury (unwitnessed)?
- MR brain with and without contrast-No acute intracranial abnormality noted.
- EEG noted and found to be negative.
- Etoh negative. UDS noted
- Follow for any new / focal symptoms or complaints.
- Follow for any evident seizure activity - PRN Ativan ordered in case needed.
- Neuro evaluation for additional recommendations.
Autoimmune Hemolytic Anemia
Anemia of Chronic Disease
- Patient with elevated reticulocyte count. Low haptoglobin and elevated LDH. Hemoglobin at 7-consistent with Hemolysis.
- Continue daily prednisone 5mg daily. Oncology correspondence noted and seems no plan to start high-dose steroids for now.
- Hematology consulted. Blood consent in chart. s/p 1u for PRBC. Hgb at 7.6
- Follows with Dr. Jacobs at [facility].
DM-II
- Stable. Glucose fairly well controlled- no evidence of hypoglycemia.
- No anion gap acidosis.
- Continue home pump. Follow glucose and adjust as needed.
- Update A1C at 4.9.
Benign Hypertension
- BP (and pulse) elevated as noted above - ? secondary to anxiety versus other.
- Continue diltiazem with holding parameters.
- Monitor on telemetry.
History of Breast Cancer
- s/p bilateral mastectomy.
- Attempted chemo but stopped after one treatment due to intolerance.
- Follow-up has all been unremarkable per .
- Per onc -okay to exemestane
Rheumatoid Arthritis
Lupus
- Hold Rinvoq acutely as w/Fevers and also with pancytopenia
Pancytopenia
History of autoimmune hepatitis
Mild hyponatremia
-monitor for now
DVT Prophylaxis: hep sc
Code Status: Full
PT/OT-Home on dc.
Discussed with patient daughter over the phone.
Discussed with multiple other family members at bedside.
Anticipated Discharge: Within 24 hours
Subjective/Interval History
-
Date of Service: May 06, 2024
States feeling significantly better
Remains afebrile
Objective Data
-
Labs:
Laboratory Results
05/06/24
05:52
WBC 1.7 L*
Hgb 7.6 L
Hct 21.8 L
Plt Count 110 L
Sodium 141 D
Potassium 3.4 L
Chloride 105
Carbon Dioxide 24
BUN 17
Creatinine 0.8
Glucose 119 H
Calcium 8.7
Total Bilirubin 1.8 H
AST 42 H
ALT 25
Alkaline Phosphatase 36 L
Vital Signs:
Vital Signs
Temp Pulse Resp BP Pulse Ox
98.2 F 92 17 115/69 99
05/06/24 07:39 05/06/24 07:39 05/06/24 07:39 05/06/24 07:39 05/06/24 07:39
I&O
05/05/24 05/06/24 05/07/24
06:59 06:59 06:59
Intake Total 1070 / 1070 120 / 120
Balance 1070 / 1070 120 / 120
Physical Exam
-
General: Well Developed, Well Nourished, No Apparent Distress and Comfortable
HEENT: Normocephalic, Atraumatic, Moist Mucous Membranes, No Ptosis, Nose Appears Normal, Ears Appear Normal, Neck Non Tender and Other (SUPPLE )
Respiratory: Clear to Auscultation
Cardiac: Regular Rhythm and S1/S2; Negative Murmur, Rub or Gallop
Breast: Deferred by me
GI: Soft, Nontender, Nondistended and Normal Bowel Sounds; Negative Organomegaly
Rectal: Deferred by Provider
Genito-urinary: Deferred by me
Musculoskeletal: No Clubbing, No Cyanosis and No Edema
Skin: Warm; Negative Rash
Neuro: Awake, Alert, Oriented, AO x 3 and Nonfocal/Grossly Intact; Negative Tremors, Sedated, Slurred Speech or Facial Droop
Psych: Calm
Data Reviewed
-
Total Time Spent with Patient (in minutes): 53
[2024-05-06 15:11] VITALS: BP 112/70
[2024-05-06] MEDS: ROCEPHIN 2000 MG IV (15:48)
[2024-05-06] MEDS: STERILE WATER FOR INJECTION 20 ML IV (15:48)
[2024-05-06 16:21] VITALS: BP 110/69; BP 112/73; BP 115/72; PULSE 106; PULSE 79; PULSE 89
[2024-05-06 16:41] LABS: Glucose - Point of Care 101 mg/dl (70-99)
[2024-05-06] MEDS: PATIENT'S OWN INSULIN PUMP SC ×2 (17:26→21:56)
[2024-05-06] MEDS: PT'S OWN INSULIN PUMP - HumaLOG SC ×2 (17:26→21:56)
[2024-05-06] MEDS: ATIVAN 0.25 MG PO (21:04)
[2024-05-06 21:48] LABS: Glucose - Point of Care 206 mg/dl (70-99)
[2024-05-06 23:00] VITALS: BP 110/72
[2024-05-06] MEDS: HEPARIN SC (23:04)
[2024-05-07] MEDS: VIBRAMYCIN 260 MG IV (05:09)
[2024-05-07 06:00] VITALS: BMI 24.9
[2024-05-07 07:35] LABS: Hematocrit 21.5 % (37.0-47.0); Hemoglobin 7.6 g/dL (12.0-16.0); Mean Corp Hgb Conc. 35.3 g/dL (33.0-37.0); Mean Corpuscular Hgb 30.2 pg (27.0-31.0); Mean Corpuscular Volume 85.3 fL (81.0-99.0); Platelet Count 102 10^3/uL (130-400); Red Blood Cell Count 2.52 10^6/uL (4.20-5.40); Red Cell Dist. Width 17.6 % (11.5-14.5); White Blood Cell Count 1.8 10^3/uL (4.8-10.8)
[2024-05-07 07:50] LABS: Blood Urea Nitrogen 16 mg/dl (7-17); Calcium 9.1 mg/dl (8.4-10.2); Carbon Dioxide 24 mmol/L (22-30); Chloride 105 mmol/L (98-107); Estimated Creatinine Clearance 67 ml/min; Glucose 129 mg/dl (70-99); Potassium 3.7 mmol/L (3.5-5.1); Sodium 138 mmol/L (135-145); eGFR > 60.00
[2024-05-07 08:03] LABS: Glucose - Point of Care 150 mg/dl (70-99)
[2024-05-07] MEDS: DELTASONE 5 MG PO (08:37)
[2024-05-07] MEDS: PROTONIX 40 MG PO (08:37)
[2024-05-07] MEDS: ASPIR LOW (ENTERIC COATED) 81 MG PO (08:37)
[2024-05-07] MEDS: PEPCID 20 MG PO (08:37)
[2024-05-07] MEDS: AROMASIN 25 MG PO (08:37)
[2024-05-07] MEDS: CARDIZEM CD 180 MG PO (08:38)
[2024-05-07] MEDS: PATIENT'S OWN INSULIN PUMP SC ×2 (08:38→11:49)
[2024-05-07] MEDS: HEPARIN 5000 UNITS SC (08:38)
[2024-05-07 08:39] VITALS: BP 115/75
[2024-05-07] MEDS: PT'S OWN INSULIN PUMP - HumaLOG 7.36 UNIT SC (08:41)
[2024-05-07 08:52] LABS: % Basophils 0.6 % (0-2); % Eosinophils 1.1 % (0-6); % Immature Granulocytes 1.1 % (0-0.5); % Lymphocytes 29.1 % (20.5-51.1); % Monocytes 15.1 % (1.7-9.3); Absolute Lymphocytes 0.5 10^3/uL (1.2-3.4); Absolute Monocytes 0.3 10^3/uL (0.1-0.6); Nucleated Red Blood Cells % 0 %
[2024-05-07 09:39] VITALS: BP 115/75
--- NOTE | 2024-05-07 10:37 | W.PN.HOSP.TC ---
Addendum entered and electronically signed by Edgard Meredith MD 05/11/24 13:06:
Acute metabolic encephalopathy-poa. resolved
Original Note:
Today's Communication/Plan
-
po abx dc
op heme f/u
Assessment / Plan
Assessment / Plan
A/P: Patient is a 53y F with PMH significant for RA, Lupus, autoimmune hemolytic anemia and breast cancer who presents to ED for evaluation of mental status change / anxiety / etc.
Fever
Chronic immunosuppressive state with leukopenia and now neutropenia
-COVID and Influenza negative.
-Blood cultures in lab x 2 -negative so far.
-UA w/reflex to culture mixed ulices.
-CXR ordered -Negative for acute infiltrate
-AXR negative.
-Antibiotics per ID
-TTE negative for vegetations.
-Given chronic immunocompromise, etc - ? reactivation of viral process /low likelihood. AOX3 now.
-Blood parasite smear negative. Additional tickborne blood work was sent Ehrlichia/Anaplasma and Rickettsia pending.
-Started on ceftriaxone and doxycycline
-Discussed with infectious disease plan will be to transition patient to p.o. cefdinir and doxycycline for additional 7 days.
-Currently with hemolysis and possibly could cause of fevers?
-Fever curve improving and last fever noted on 05/04 at 2:52 PM
-ID following.
Elevated troponin likely 2/2 non ischemic myocardial injury
-Trop downtrended
-Echo with Normal biventricular size and systolic function without regional wall motion abnormality. No significant valvular disease. Normal echocardiogram.
-Cardiology signed off-recs cont asa/statin
Altered Mental Status-resolved
Anxiety / Restlessness
- CT head done in the ED was unremarkable.
- No other focal symptoms / complaints / etc.
- ? seizure activity with prolonged sleep this afternoon, staring episode and lower lip injury (unwitnessed)?
- MR brain with and without contrast-No acute intracranial abnormality noted.
- EEG noted and found to be negative.
- Etoh negative. UDS noted
- Follow for any new / focal symptoms or complaints.
- Follow for any evident seizure activity - PRN Ativan ordered in case needed.
- Neuro evaluation for additional recommendations.
Autoimmune Hemolytic Anemia
Anemia of Chronic Disease
- Patient with elevated reticulocyte count. Low haptoglobin and elevated LDH. Hemoglobin at 7-consistent with Hemolysis.
- Continue daily prednisone 5mg daily. Oncology correspondence noted and seems no plan to start high-dose steroids for now.
- Hematology consulted. Blood consent in chart. s/p 1u for PRBC. Hgb at 7.6
- Follows with Dr. Jacobs at [facility]. Patient said that she discussed with her primary oncologist and plan will be for outpatient bone marrow biopsy with her primary oncologist.
DM-II
- Stable. Glucose fairly well controlled- no evidence of hypoglycemia.
- No anion gap acidosis.
- Continue home pump. Follow glucose and adjust as needed.
- Update A1C at 4.9.
Benign Hypertension
- BP (and pulse) elevated as noted above - ? secondary to anxiety versus other.
- Continue diltiazem with holding parameters.
- Monitor on telemetry.
History of Breast Cancer
- s/p bilateral mastectomy.
- Attempted chemo but stopped after one treatment due to intolerance.
- Follow-up has all been unremarkable per .
- Per onc -okay to exemestane
Rheumatoid Arthritis
Lupus
- Hold Rinvoq acutely with pancytopenia AND recommend to restart pending improvement in leukopenia
Pancytopenia
History of autoimmune hepatitis
Mild hyponatremia
-monitor for now
DVT Prophylaxis: hep sc
Code Status: Full
PT/OT-Home on dc.
Discussed with patient daughter over the phone on 05/06/24
Discussed with multiple other family members at bedside 05/06/24
d/w wtih ID.
More than 30 minutes spent in discharge including
Final examination of the patient
Summarizing hospital stay
Instructions for continuing care to all relevant caregivers
Preparation of discharge records, prescriptions, and referral forms
Total time spent (in minutes): 53
Anticipated Discharge: Today
Subjective/Interval History
-
Date of Service: May 07, 2024
Remains afebrile
States she is feeling better
Tolerating diet
Objective Data
-
Labs:
Laboratory Results
05/07/24
06:17
WBC 1.8 L*
Hgb 7.6 L
Hct 21.5 L
Plt Count 102 L
Sodium 138
Potassium 3.7
Chloride 105
Carbon Dioxide 24
BUN 16
Creatinine 0.8
Glucose 129 H
Calcium 9.1
Vital Signs:
Vital Signs
Temp Pulse Resp BP Pulse Ox
98.3 F 85 21 115/75 96
05/07/24 08:39 05/07/24 08:39 05/07/24 08:39 05/07/24 08:39 05/07/24 09:55
I&O
05/06/24 05/07/24 05/08/24
06:59 06:59 06:59
Intake Total 120 / 120 1000 / 1000
Balance 120 / 120 1000 / 1000
Physical Exam
-
General: Well Developed, Well Nourished, No Apparent Distress and Comfortable
HEENT: Normocephalic, Atraumatic, Moist Mucous Membranes, No Ptosis, Nose Appears Normal, Ears Appear Normal, Neck Non Tender and Other (SUPPLE )
Respiratory: Clear to Auscultation
Cardiac: Regular Rhythm and S1/S2; Negative Murmur, Rub or Gallop
Breast: Deferred by me
GI: Soft, Nontender, Nondistended and Normal Bowel Sounds; Negative Organomegaly
Rectal: Deferred by Provider
Genito-urinary: Deferred by me
Musculoskeletal: No Clubbing, No Cyanosis and No Edema
Skin: Warm; Negative Rash
Neuro: Awake, Alert, Oriented, AO x 3 and Nonfocal/Grossly Intact; Negative Tremors, Sedated, Slurred Speech or Facial Droop
Psych: Calm
--- NOTE | 2024-05-07 10:52 | W.DCSUMMARY ---
Discharge Summary
Discharge Data
Date of Admission: 05/01/24
Date of Discharge: 05/07/24
-
Pending Results: No
Hospital Course
53y F with PMH significant for RA, Lupus, autoimmune hemolytic anemia, breast cancer, history of autoimmune hepatitis, diabetes mellitus on insulin pump, anemia of chronic diseases who presents to ED for evaluation of mental status change /
anxiety / etc. CT head in the ER unremarkable. MRI brain with and without contrast acute normality was noted. Patient underwent EEG and found to be negative. Alcohol level negative. Neurology was consulted and recommended no further workup.
Patient mentation improved and was back to baseline mentation. Patient was found to have fevers and elevated troponin. Patient underwent evaluation by cardiology. Echo with Normal biventricular size and systolic function without regional wall
motion abnormality. No significant valvular disease. Normal echocardiogram. Per cardiology nonischemic myocardial injury no further workup required. Outpatient cardiac follow-up recommended. Patient with fevers and infectious workup was
started. UA with mixed ulices. Blood cultures were negative. Chest x-ray negative for pneumonia. No GI symptomatology. Patient on immunosuppressive and eventually developed pancytopenia. Patient with persistent fever and infectious disease was
consulted. Patient went downtrend of hemoglobin and hemolytic anemia blood work was started. Patient was found to have mild hemolysis and received 1u of PRBC. Patient hemoglobin stabilized. se. Lyme studies was negative. Elhrichia and
Anaplasma was pending. Patient hemoglobin stable and hemolysis probably stopped. Patient remained afebrile. It was suspected that patient fevers are likely secondary to hemolysis versus low possibility of tickborne disease. Patient was on
ceftriaxone doxycycline. Patient remained afebrile for 48 hours. Upon discussion with infectious disease plan to be to transition patient to cefdinir and doxycycline on discharge for 1 more week. Patient also discussed with her primary oncology
with plan for outpatient bone marrow biopsy. Patient insisted on going home. Patient was afebrile and tolerating diet. Patient hemoglobin stable. Patient be discharged home with recommendation to follow-up outpatient with cardiology and primary
oncologist. Recommended to hold Rinvoq until improvement in leukopenia.
Discharge Plan
-
Patient Disposition: Home (Routine Discharge)
Discharge Diagnosis/Procedures: Fevers
Pancytopenia
Status post blood transfusion
Nonischemic myocardial injury
Altered mental status
Hypokalemia
Condition: Fair
Diet: Diabetic, Carb Controlled
Activity: As tolerated
Driving Restrictions: As prior to admission
Blood Work: cbc in 3-5 days via primary doctor.
Referrals:
Pan Jacobs, [Non-Admitting Privileges] - None
Dimitri Brizuela MD [Active] - (Please call and arrange an appointment for 3 months from discharge.)
UNKNOWN - PT NOT,INTERVIEWE [Family Provider] -
Prescriptions:
New
cefdinir 300 mg capsule
300 mg PO Q12H Qty: 14 0RF
doxycycline hyclate 100 mg capsule
100 mg PO BID Qty: 14 0RF
Continued
diltiazem HCl 180 mg Capsule,Extended Release 24 Hr
180 mg PO DAILY
prednisone 5 mg Tablet
5 mg PO DAILY
aspirin 81 mg Tablet,Delayed Release (Dr/Ec)
81 mg PO DAILY
famotidine [Pepcid] 20 mg Tablet
20 mg PO HS
exemestane 25 mg Tablet
25 mg PO DAILY
pantoprazole [Protonix] 40 mg Tablet,Delayed Release (Dr/Ec)
40 mg PO DAILY
ibuprofen 400 mg Tablet
400 mg PO Q6HPRN PRN (Reason: mild pain)
rosuvastatin [Crestor] 5 mg Tablet
5 mg PO QPM
Mounjaro 5 mg/0.5 mL Pen Injector
5 mg SC FR
Patient Own Insulin Pump
0 units SC .VIA HUMALOG
Held
Rinvoq 15 mg Tablet Extended Release 24 Hr
15 mg PO DAILY
Hold Instructions: Resume on 05/16/24. Recommend to hold till improvement in leukopenia and after discussion with the oncology and rheumatology
Discharge Orders:
Discharge Patient (As Directed); Ordered 05/07/24
Ordered By: Edgard Meredith
Discharge Date and Time
Print Language: MOROCCAN
[2024-05-07] MEDS: PT'S OWN INSULIN PUMP - HumaLOG 2.89 UNIT SC (11:49)
[2024-05-07 12:23] VITALS: BP 106/63
[2024-05-08 03:48] LABS: RMSF IgG Antibodies <1:64 (<1:64); RMSF IgM Antibodies <1:64 (<1:64)
--- NOTE | 2024-05-09 16:25 | PN.CDI ---
CDI
- -
CDI:
Physician Documentation Request
Admit Date: 05/01/24 22:05
Dear Doctor Viri,
Patient admitted for fever.
05/03 Neurology PN: 'Abrupt onset of change in mental status with the patient having had a prior change mental status 1 year ago associated with agitation, also. Differential diagnosis includes toxic metabolic encephalopathy, seizure'
05/04 Oncology: 'Altered mental status - etiology unclear, seizure vs toxic metabolic encephalopathy'
05/07 Hospitalist PN: 'Altered Mental Status-resolved, Anxiety / Restlessness - CT head done in the ED was unremarkable...? seizure activity with prolonged sleep this afternoon, staring episode and lower lip injury (unwitnessed)?'
Based on the above, could you clarify in the Progress Notes and Discharge Summary which, if any of the following, is the most likely etiology of the confusion/altered mental status.
Encephalopathy - indicate type, such as metabolic, toxic, septic, alcoholic, anoxic, hypertensive etc. due to a specific condition such as UTI, CVA, hyponatremia etc.
Acute Delirium - indicate known or suspected etiology such as postoperative, due to opioids or other drugs etc. Can also indicate unknown or mixed etiologies.
Acute or subacute confusional state due to ____ (specify known or suspected etiology)
Other
Use of terms such as suspected, likely, concern for, or probable (associated with a specific diagnosis that is being evaluated, monitored, or treated as if it exists) are acceptable and can be coded in the inpatient setting, when documented at the
time of discharge.
Thank you,
Siria Corcoran RN, BSN
CDI Specialist
Available via [place] [facility] [employer] text
Please use your independent medical judgment in providing your response.
== END 2024-05-07 13:57 | disposition home or self-care (01) | DRG 808 ==
LOC: 3 WEST ACU 22:05
PROVIDERS: Nurse Practitioner Gerontology; ADMITTING PHYSICIAN Hospitalist; ATTENDING PHYSICIAN Hospitalist; CONSULT PHYSICIAN Internal Medicine Cardiovascular Disease; CONSULT PHYSICIAN Internal Medicine Hematology & Oncology; EMERGENCY PHYSICIAN Emergency Medicine; OTHER PHYSICIAN Psychiatry & Neurology Neurology; OTHER PHYSICIAN Student in an Organized Health Care Education/Training Program
PROC: 30233N1 Transfusion of Nonautologous Red Blood Cells into Peripheral Vein, Percutaneous Approach (ICD-10-PCS; 2024-05-04)
DX: D59.10 Autoimmune hemolytic anemia, unspecified (principal); G93.41 Metabolic encephalopathy; D61.818 Other pancytopenia; I5A Non-ischemic myocardial injury (non-traumatic); D84.821 Immunodeficiency due to drugs; M06.9 Rheumatoid arthritis, unspecified; M32.9 Systemic lupus erythematosus, unspecified; E11.9 Type 2 diabetes mellitus without complications; I10 Essential (primary) hypertension; D70.2 Other drug-induced agranulocytosis; E87.6 Hypokalemia; E78.00 Pure hypercholesterolemia, unspecified; F41.9 Anxiety disorder, unspecified; K21.9 Gastro-esophageal reflux disease without esophagitis; K75.4 Autoimmune hepatitis; Z96.41 Presence of insulin pump (external) (internal); Z90.710 Acquired absence of both cervix and uterus; Z90.13 Acquired absence of bilateral breasts and nipples; Z88.2 Allergy status to sulfonamides; Z88.0 Allergy status to penicillin; Z85.3 Personal history of malignant neoplasm of breast; Z79.899 Other long term (current) drug therapy; Z79.82 Long term (current) use of aspirin; Z79.85 Long-term (current) use of injectable non-insulin antidiabetic drugs; Z79.4 Long term (current) use of insulin; Z11.52 Encounter for screening for COVID-19; Z79.811 Long term (current) use of aromatase inhibitors
CPT/HCPCS: 70450; 70553; 71046; 74019; 80048; 80053; 80143; 80179; 80306; 80307; 81003; 81015; 81025; 82077; 82140; 82248; 82384; 82607; 82728; 82746; 82962; 83010; 83036; 83540; 83550; 83615; 83735; 83835; 84100; 84443; 84484; 85025; 85027; 85045; 85652; 86618; 86757; 86850; 86880; 86900; 86901; 86920; 87015; 87040; 87086; 87207; 87502; 87811; 93005; 93306; 95816; 96374; 97116; 97129; 97162; 97166; 99285; A9575; P9016

== ENCOUNTER 2024-08-08 16:25 | Inpatient (IN) | payer OTHER, SELFPAY ==
[2024-08-08 13:00] VITALS: BP 162/97
[2024-08-08 13:40] LABS: % Basophils 0.3 % (0-2); % Eosinophils 0.3 % (0-6); % Immature Granulocytes 0.6 % (0-0.5); % Lymphocytes 13.6 % (20.5-51.1); % Monocytes 6.8 % (1.7-9.3); % Neutrophils 78.4 % (42.2-75.2); Absolute Lymphocytes 0.4 10^3/uL (1.2-3.4); Absolute Monocytes 0.2 10^3/uL (0.1-0.6); Absolute Neutrophils 2.5 10^3/uL (1.4-6.5); Hematocrit 27.3 % (37.0-47.0); Hemoglobin 9.9 g/dL (12.0-16.0); Mean Corp Hgb Conc. 36.3 g/dL (33.0-37.0); Mean Corpuscular Hgb 30.7 pg (27.0-31.0); Mean Corpuscular Volume 84.5 fL (81.0-99.0); Mean Platelet Volume 11.6 fL (7.4-10.4); Nucleated Red Blood Cells % 0 %; Platelet Count 128 10^3/uL (130-400); Red Blood Cell Count 3.23 10^6/uL (4.20-5.40); Red Cell Dist. Width 14.5 % (11.5-14.5); White Blood Cell Count 3.2 10^3/uL (4.8-10.8)
[2024-08-08 13:50] LABS: Lactic Acid 2.3 mmol/L (0.7-2.0)
[2024-08-08 13:52] LABS: COVID-19 Antigen Negative (Negative)
[2024-08-08 14:10] VITALS: BMI 22.7
[2024-08-08 14:18] LABS: ALT (SGPT) 22 U/L (0-35); AST (SGOT) 37 U/L (14-36); Alkaline Phosphatase 52 U/L (38-126); Blood Urea Nitrogen 13 mg/dl (7-17); Calcium 8.9 mg/dl (8.4-10.2); Carbon Dioxide 15 mmol/L (22-30); Chloride 99 mmol/L (98-107); Estimated Creatinine Clearance 67 ml/min; Glucose 207 mg/dl (70-99); Potassium 3.8 mmol/L (3.5-5.1); Sodium 135 mmol/L (135-145); Total Bilirubin 2.5 mg/dl (0.2-1.3); Total Protein 6.9 g/dl (6.3-8.2); eGFR > 60.00
[2024-08-08 14:39] VITALS: BP 139/76
[2024-08-08] MEDS: TYLENOL 1000 MG PO (14:53)
[2024-08-08] MEDS: NSS 1000 IV ×3 (14:54→17:51)
--- NOTE | 2024-08-08 15:16 | ED.GENMED ---
History of Present Illness
General
Chief Complaint: Fever
Source: patient and family
Time Seen by Provider: 08/08/24 14:12
History of Present Illness
History of Present Illness:
53-year-old female with a history of rheumatoid arthritis and possibly SLE as well as insulin-dependent diabetes who presents with fever since . She states over the weekend it seemed to break but came back Thursday night. No chest pain. No
abdominal pain. No nausea. No vomiting. She had episode diarrhea on Thursday after eating at a diner but that resolved. Denies dysuria. Denies rash. States she has had a similar thing in the past. At that time they were unable to conclude
what the etiology was. Patient is on prednisone daily. She also is on Rinvoq. Daughter states that patient had very similar things in the past and they could not figure out what the cause was. Patient states last time she did not need a steroid
stress dose. Interestingly, the patient did live near [facility] and moved out when she was 15.
Past History
Past History
ED Past Medical History: IDDM and Other (Anemia)
ED Past Surgical History: , Gynecological (Hysterectomy) and Other (Double mastectomy)
Social History
Tobacco: Non-smoker
Alcohol: None
Drug: None
Personal:
Living: with family
Phy Exam
Physical Exam
Physical Exam:
CONSTITUTIONAL Patient alert and oriented to person, place and time. Febrile. Vital signs reviewed.
HEAD atraumatic, normocephalic.
EYES eyelids normal to inspection, Extraocular muscles intact, Conjunctiva normal, Sclera normal.
NECK normal range of motion, Trachea midline, no jugular venous distention.
RESPIRATORY CHEST No respiratory distress noted, Chest expansion equal, Bilateral breath sounds clear.
CARDIOVASCULAR regular and tachycardic, Heart sounds normal.
ABDOMEN abdomen nontender, Bowel sounds normal. No distention.
BACK normal inspection, no obvious deformities
UPPER EXTREMITY range of motion normal, Motor strength normal, no cyanosis, no edema.
LOWER EXTREMITY range of motion normal, Motor strength normal, no cyanosis, no edema.
NEURO Speech normal, No focal motor deficits, Carr coma scale 15, Memory normal, Cranial Nerves intact to screening exam.
SKIN skin warm, dry, and normal in color.
Course
Orders/Labs/Results
Orders:
Orders
08/08/24 13:04
Electrocardiogram (*1) Urgent
Reason for Study: Bradycardia / Tachycardia
EKG- Treatment ONCE
08/08/24 13:23
COVID-19 Antigen Urgent
Source: Nasal Swab
Complete Blood Count/With Diff Urgent
Comprehensive Metabolic Panel Urgent
Lactic Acid Urgent
Blood Culture Urgent
ESTEFANIA Source: Blood/Venous
Specimen Description:
Date Specimen was Collected: 08/08/24
Time Specimen was Collected: 13:20
Influenza A+B Rapid Molecular Urgent
ESTEFANIA Source: Nasal Swab
Specimen Description:
08/08/24 13:29
CXR2 [CR Chest - 2 Views ] Urgent
Comment:
Reason For Exam: fever
08/08/24 14:40
Urinalysis Reflex To Culture Urgent
08/08/24 14:48
Acetaminophen [Tylenol] 1,000 mg .ROUTE .STK-MED ONE
08/08/24 14:52
Acetaminophen [Tylenol] 1,000 mg PO NOW STA
08/08/24 14:53
0.9% Sodium Chloride 1000 ml [Nss] 1,000 ml IV BOLUS
08/08/24 15:16
0.9% Sodium Chloride 1000 ml [Nss] 1,000 ml IV BOLUS
08/08/24 15:27
Cefepime HCl [Maxipime] 1,000 mg IV NOW STA
Vancomycin [Vancocin] 1,500 mg 0.9% Sodium Chloride 500 ml [Nss] 500 ml IV NOW
Abnormal Lab Results
08/08/24
13:23
WBC 3.2 L 10^3/uL
(4.8-10.8)
RBC 3.23 L 10^6/uL
(4.20-5.40)
Hgb 9.9 L g/dL
(12.0-16.0)
Hct 27.3 L %
(37.0-47.0)
Plt Count 128 L 10^3/uL
(130-400)
MPV 11.6 H fL
(7.4-10.4)
Absolute Lymphs (auto) 0.4 L 10^3/uL
(1.2-3.4)
Immature Gran % 0.6 H %
(0-0.5)
Neutrophils % 78.4 H %
(42.2-75.2)
Lymphocytes % 13.6 L %
(20.5-51.1)
Carbon Dioxide 15 L mmol/L
(22-30)
Glucose 207 H mg/dl
(70-99)
Lactic Acid 2.3 H mmol/L
(0.7-2.0)
Total Bilirubin 2.5 H mg/dl
(0.2-1.3)
AST 37 H U/L
(14-36)
08/08/24 13:23
08/08/24 13:23
Vital Signs
Initial and Last Documented VS:
Initial Vital Signs
Temp Pulse Resp BP Pulse Ox
99.8 F 130 18 162/97 100
08/08/24 13:00 08/08/24 13:00 08/08/24 13:00 08/08/24 13:00 08/08/24 13:00
Last Documented Vital Signs
Temp Pulse Resp BP Pulse Ox
102.8 F H 114 15 139/76 98
08/08/24 14:43 08/08/24 14:39 08/08/24 14:39 08/08/24 14:39 08/08/24 14:39
MDM/Problems Addressed
Differential Diagnosis Includes:
Bacteremia, UTI, pneumonia, lupus flare, endocarditis
MDM/Problems Addressed:
Fever, immunocompromise state, mild leukopenia, acute hyperglycemia
*Radiology
Radiology exam reviewed: all reviewed NAD by ED Provider
*Pulse Oximetry
Patient hypoxic: no
*EKG
Interpreted by ED Provider?: Yes
Interpretation: abnormal
Rate: tachycardiac
Rhythm: sinus
[place]: normal axis
Interval: normal interval
Ischemia: no ischemia
*Studio Receptionist Interpretation
Rate: tachycardiac
Interpretation: abnormal
Rhythm: sinus
*Critical Care Note
Total Time (30-74mins, 75-104mins- exclusive of procedures): Not Applicable
Data Reviewed
Source: patient and family
Prescriptions/Medications Considered But Not Given:
Considered stress dose steroids with patient hemodynamically currently stable.
Patient Management
Discussion with other providers: Hospitalist
Escalation/DeEscalation of care consider admission/obs:
Unclear etiology. Send blood cultures. Cover 1 dose of antibiotics pending results. No murmur to suggest endocarditis. Has had similar events in the past. Question whether this could be inflammatory from her chronic illness. Continue to
monitor closely for stress dose steroids. Admit
ED Attending Note
-
Portions of this chart may have been created with voice recognition software.� Occasional wrong word or��sound alike� substitutions may have occurred due to the inherent limitations of voice recognition software.
Discharge Plan
Departure
Patient Disposition: Admit
Date of Disposition: 08/08/24
Time of Disposition: 15:26
Admit to: Med/Surg
Presentation/result/management discussed w/ accepting MD/DO: Hospitalist
Discharge Problem:
Fever, Immunocompromised state
Prescriptions:
No Action
diltiazem HCl 180 mg Capsule,Extended Release 24 Hr
180 mg PO DAILY
prednisone 5 mg Tablet
5 mg PO DAILY
aspirin 81 mg Tablet,Delayed Release (Dr/Ec)
81 mg PO DAILY
famotidine [Pepcid] 20 mg Tablet
20 mg PO HS
exemestane 25 mg Tablet
25 mg PO DAILY
pantoprazole [Protonix] 40 mg Tablet,Delayed Release (Dr/Ec)
40 mg PO DAILY
ibuprofen 400 mg Tablet
400 mg PO Q6HPRN PRN (Reason: mild pain)
rosuvastatin [Crestor] 5 mg Tablet
5 mg PO QPM
Rinvoq 15 mg Tablet Extended Release 24 Hr
15 mg PO DAILY
Mounjaro 5 mg/0.5 mL Pen Injector
5 mg SC FR
Patient Own Insulin Pump
0 units SC .VIA HUMALOG
cefdinir 300 mg capsule
300 mg PO Q12H Qty: 14 0RF
doxycycline hyclate 100 mg capsule
100 mg PO BID Qty: 14 0RF
Referrals:
Moshe Gustafson MD [Family Provider] -
Interventions
Interventions:
*Risk Screen - Suicide Last Done: 08/08/24 13:00
*General Assessment Last Done: 08/08/24 14:15
*Neglect/Abuse Screening Last Done: 08/08/24 13:00
*ED COVID-19 Vaccine History Last Done: 08/08/24 14:15
Discharge Date and Time
Print Language: GRENADIAN
--- NOTE | 2024-08-08 16:03 | HPS.HSE ---
Family Physician
-
Family Physician: Moshe Gustafson
Chief Complaint
-
fever
History of Present Illness
53-year-old female past medical history of rheumatoid arthritis on Rinvoq, lupus, autoimmune hemolytic anemia, autoimmune hepatitis, breast cancer status post mastectomy bilaterally, anemia of chronic disease, anxiety, diabetes, hypertension,
hyponatremia presenting with fever since . Over the weekend it got better but came back last night. She denies chest pain, abdominal pain, nausea or vomiting. She had diarrhea 2 days ago after eating dinner which resolved. Denies urinary
symptoms. Denies rash. Patient had similar symptoms previously no etiology was found. Denies blood in the urine. Denies joint pains.
She had a sore in her mouth 5 days ago but this is improved. No discharge.
Patient did live near [facility] and moved away when she was 15 years old.
Patient was admitted from 05/01 to 05/07 for change in mental status. MRI was negative. She had fevers at that time. Echo was unremarkable. Infectious workup was negative. Patient developed pancytopenia. ID was consulted. He was found to have
mild pneumolysis and received 1 unit of blood. Fevers were thought to be due to analysis. Outpatient bone marrow biopsy was recommended.
Bone marrow biopsy did not show anything notable. There have been no changes in her care with rheumatology or hematology.
Denies smoking or alcohol use.
Medical History
Past Medical History
Past Medical History: Reports Other (rheumatoid arthritis on Rinvoq, lupus, autoimmune hemolytic anemia, autoimmune hepatitis, breast cancer status post mastectomy bilaterally, anemia of chronic disease, anxiety, diabetes, hypertension, hyponatremia)
Past Surgical History: Reports Other (, Gynecological (Hysterectomy) and Other (Double mastectomy))
Social History
Tobacco: Non-smoker
Alcohol: None
Drug: None
Family History
Family History: Not pertinent
Allergies / Home Medications
Allergies reflects when Allergies were last updated in [facility].
Home Medications with original date entered in [facility]
Allergy/Medication List:
Allergies
Allergy/AdvReac Type Severity Reaction Status Date / Time
Latex, Natural Rubber Allergy Unknown Verified 08/08/24 13:03
Penicillins Allergy Unknown, Verified 08/08/24 15:55
tolerated
certriaxone
in 2023
prochlorperazine Allergy Unknown Verified 08/08/24 13:03
[From Compazine]
Sulfa (Sulfonamide Allergy Unknown Verified 08/08/24 13:03
Antibiotics)
sumatriptan [From Imitrex] Allergy Unknown Verified 08/08/24 13:03
Home Medications
Patient Own Insulin Pump 0 units SC .VIA HUMALOG Diabetes 05/01/24
aspirin 81 mg tablet,delayed release 81 mg PO DAILY Blood Clot Prevention/Tx 05/01/24
diltiazem HCl 180 mg capsule,24 hr,extended release 180 mg PO DAILY Blood Pressure 05/01/24
exemestane 25 mg tablet 25 mg PO DAILY Hormonal Agent 05/01/24
pantoprazole 40 mg tablet,delayed release (Protonix) 40 mg PO DAILY Gastrointestinal Issue 05/01/24
prednisone 5 mg tablet 5 mg PO DAILY rheumatoid arthritis 05/01/24
rosuvastatin 5 mg tablet (Crestor) 5 mg PO DAILY High Cholesterol 05/01/24
tirzepatide 5 mg/0.5 mL subcutaneous pen injector (Mounjaro) 5 mg SC FR Diabetes 05/01/24
upadacitinib 15 mg tablet,extended release 24 hr (Rinvoq) 15 mg PO DAILY Rheumatoid arthritis 05/01/24
cyanocobalamin (vitamin B-12) 1,000 mcg/mL injection solution 1,000 mcg SC QMONTH 08/08/24
escitalopram oxalate 10 mg tablet 10 mg PO DAILY 08/08/24
ibuprofen 200 mg tablet 600 mg PO Q6HPRN PRN mild pain/fever 08/08/24
therapeutic multivitamin 1 tab PO DAILY 08/08/24
Review of Systems
-
History Source: Patient
A 12 point ROS was completed and negative except as noted: Yes
Constitutional: Reports No Symptoms
EENT: Reports No Symptoms
Respiratory: Reports No Symptoms
Cardiac: Reports No Symptoms
Abdomen/GI: Reports No Symptoms
: Reports No Symptoms
Musculoskeletal: Reports No Symptoms
Skin: Reports No Symptoms
Neurological: Reports No Symptoms
Endocrine: Reports No Symptoms
Hematologic/Lymphatic: Reports No Symptoms
Psych: Reports No Symptoms
Physical Exam
Vital Signs
Vital Signs
Temp Pulse Resp BP Pulse Ox
102.8 F H 114 15 139/76 98
08/08/24 14:43 08/08/24 14:39 08/08/24 14:39 08/08/24 14:39 08/08/24 14:39
Physical Exam
General: Well Developed, Well Nourished and No Apparent Distress
HEENT: NormoCephalic, Moist mucous membranes and Atraumatic
Respiratory: Clear
Cardiac: S1/S2 and Regular Rhythm; No Murmur or Rub
GI: Soft, Non Tender, Non Distended and Normal Bowel Sounds; No Organomegaly
Rectal: Deferred by Provider
Musculoskeletal: No Clubbing, No Cyanosis and No Edema
Skin: No Rash
Neuro: Nonfocal/grossly intact
Laboratory Results
-
08/08/24 13:23
08/08/24 13:23
Laboratory Results
Lactic Acid 2.3 mmol/L (0.7-2.0) H 08/08/24 13:23
Total Bilirubin 2.5 mg/dl (0.2-1.3) H 08/08/24 13:23
AST 37 U/L (14-36) H 08/08/24 13:23
ALT 22 U/L (0-35) 08/08/24 13:23
Alkaline Phosphatase 52 U/L (38-126) 08/08/24 13:23
Data Reviewed
-
Lab Data: Labs Reviewed by me
Old Records: Reviewed
Impression/Plan
-
IMPRESSION:
PLAN:
#SIRS (fever, tachycardia, leukopenia) unclear source
-Chest x-ray negative
-Flu and COVID-negative
-Check blood cultures
-Vancomycin/cefepime
-ID consulted
# Anion gap metabolic acidosis secondary to sepsis/lactic acidosis
-Trend lactic
-Monitor with IV fluid
Rheumatoid arthritis
-On Rinvoq
History of lupus erythematosus
-Continue prednisone
History of autoimmune hemolytic anemia
History of autoimmune hepatitis
Breast cancer status post bilateral mastectomy
-Continue exemestane
Anemia of chronic disease
-Hemoglobin stable
Anxiety/restlessness
-Continue Lexapro
Type 2 diabetes
-Continue insulin pump
Essential hypertension
-Continue diltiazem
History of hyponatremia
Full code
DVT prophylaxis�heparin
Regular diet
[2024-08-08] MEDS: MAXIPIME 1000 MG IV (16:49)
[2024-08-08 16:55] LABS: Urine Albumin 1+ (Neg - Trace); Urine Bilirubin Negative (Negative); Urine Character Clear (Clear); Urine Color Yellow; Urine Glucose 1+ (Negative); Urine Ketone 3+ (Negative); Urine Leukocyte 1+ (Negative); Urine Nitrite Negative (Negative); Urine Occult Blood 1+ (Negative); Urine Urobilinogen Negative (Neg - 1+)
--- NOTE | 2024-08-08 17:09 | PTCARENOTE ---
Pt received from the ED via stretcher. Pt ambulated from stretcher to room 337-2 with stand by assistance.
[2024-08-08 17:11] VITALS: BP 129/71
[2024-08-08 17:13] VITALS: BMI 23.8
--- NOTE | 2024-08-08 17:14 | PHA.VAN.IN ---
Assessment
- Assessment
Renal Function: Appears similar to baseline
Maximum Temperature: 102.8 F oral 08/08 @ 1443
Concomitant Antimicrobials: cefepime
AUC Dosing Plan
- Dosing Variables
Dosing Weight (kg): 61
Dosing CrCl (ml/min): 67
Vd coefficient (L/kg): 0.7
- Empiric Dosing
Initial / Loading Dose: vanc 1500mg pending administration
Maintenance Regimen: vanc 500mg Q12H
Estimated AUC (mcg*h/mL): 402
Estimated Peak (mcg*h/mL): 22.8
Estimated Trough (mcg/ml): 11.8
Estimated Half Life (H): 11.5
- Monitoring
No levels ordered at this time: consider levels in next few days
Pharmacokinetics Vancomycin I
- -
Patient Age: 53
Patient Sex: Female
Vancomycin Day #: 1
Indication: Bacteremia
Requesting Provider: Dr. Lloyd
Pertinent Antimicrobial Allergies:
penicillins - unknown (tolerates ceftriaxone 2023)
sulfa - unknown
Height / Weight:
Height 5 ft 3 in
Actual Weight 60.951 kg
Pertinent Past Medical History: RA, lupus
- Vital Signs / Lab Results
Temp Pulse Resp BP Pulse Ox
99.2 F 97 18 129/71 98
08/08/24 17:11 08/08/24 17:11 08/08/24 17:11 08/08/24 17:11 08/08/24 17:11
Lab Results - Hematology
08/08/24
13:23
WBC 3.2 L
Lab Results - Chemistry
08/08/24
13:23
BUN 13
Creatinine 0.8
Estimated Creat Clear 67
Albumin 5.0
08/08/24
13:23
Lactic Acid 2.3 H
Lab Results - Urine
08/08/24
15:39
Urine Nitrite (Reflex) Negative
Leukocyte Esterase Rfl 1+ A
Microbiology Results
08/08/24 13:23 Influenza Types A & B (YULIANA) - Final
Nasal Swab Negative for Influenza A & B, NAAT
Negative results must be combined with clinical observations
and patient history.
Nucleic Acid Amplification test (NAAT)performed on the
[employer] platform.
[2024-08-08 17:20] LABS: Urine Bacteria Few (Negative)
[2024-08-08 17:30] LABS: Glucose - Point of Care 102 mg/dl (70-99)
[2024-08-08] MEDS: VANCOCIN 530 MG IV (18:12)
[2024-08-08] MEDS: HEPARIN 5000 UNITS SC (20:12)
[2024-08-08] MEDS: MOTRIN 600 MG PO (20:22)
[2024-08-08 21:50] LABS: Lactic Acid < 0.5 mmol/L (0.7-2.0)
[2024-08-08] MEDS: PATIENT'S OWN INSULIN PUMP 0.54 UNITS SC (22:10)
[2024-08-08 22:24] LABS: Glucose - Point of Care 167 mg/dl (70-99)
[2024-08-08 23:00] VITALS: BP 120/65
[2024-08-08 23:25] VITALS: BP 120/55
[2024-08-09] MEDS: STERILE WATER FOR INJECTION 10 ML IV ×3 (00:55→15:53)
[2024-08-09] MEDS: MAXIPIME 2000 MG IV ×3 (00:56→15:54)
[2024-08-09] MEDS: NSS 1000 IV ×2 (05:07→17:44)
[2024-08-09] MEDS: VANCOCIN HCL 500 MG 100 IV (05:07)
[2024-08-09 07:28] VITALS: BP 120/58
[2024-08-09 07:29] LABS: Glucose - Point of Care 154 mg/dl (70-99)
[2024-08-09] MEDS: DELTASONE 5 MG PO (08:08)
[2024-08-09] MEDS: CARDIZEM CD 180 MG PO (08:08)
[2024-08-09] MEDS: ASPIR LOW (ENTERIC COATED) 81 MG PO (08:08)
[2024-08-09] MEDS: LEXAPRO 10 MG PO (08:08)
[2024-08-09] MEDS: CRESTOR 5 MG PO (08:08)
[2024-08-09] MEDS: PROTONIX 40 MG PO (08:08)
[2024-08-09] MEDS: HEPARIN 5000 UNITS SC (08:09)
[2024-08-09] MEDS: AROMASIN 25 MG PO (08:09)
[2024-08-09] MEDS: THERAGRAN 1 TABLET PO (08:09)
[2024-08-09] MEDS: PATIENT'S OWN INSULIN PUMP 8.46 UNITS SC (08:11)
[2024-08-09 08:33] LABS: % Basophils 0.4 % (0-2); % Eosinophils 0.4 % (0-6); % Immature Granulocytes 0.4 % (0-0.5); % Monocytes 10.3 % (1.7-9.3); % Neutrophils 58.5 % (42.2-75.2); Absolute Lymphocytes 0.7 10^3/uL (1.2-3.4); Absolute Monocytes 0.2 10^3/uL (0.1-0.6); Absolute Neutrophils 1.4 10^3/uL (1.4-6.5); Hematocrit 20.1 % (37.0-47.0); Hemoglobin 7.2 g/dL (12.0-16.0); Mean Corp Hgb Conc. 35.8 g/dL (33.0-37.0); Mean Corpuscular Hgb 30.6 pg (27.0-31.0); Mean Corpuscular Volume 85.5 fL (81.0-99.0); Mean Platelet Volume 10.3 fL (7.4-10.4); Nucleated Red Blood Cells % 0 %; Platelet Count 90 10^3/uL (130-400); Red Blood Cell Count 2.35 10^6/uL (4.20-5.40); Red Cell Dist. Width 14.6 % (11.5-14.5); White Blood Cell Count 2.3 10^3/uL (4.8-10.8)
[2024-08-09 09:31] LABS: ALT (SGPT) 19 U/L (0-35); AST (SGOT) 36 U/L (14-36); Albumin 3.3 g/dl (3.5-5.0); Alkaline Phosphatase 36 U/L (38-126); Blood Urea Nitrogen 14 mg/dl (7-17); Calcium 8.3 mg/dl (8.4-10.2); Carbon Dioxide 21 mmol/L (22-30); Chloride 110 mmol/L (98-107); Estimated Creatinine Clearance 76 ml/min; Glucose 131 mg/dl (70-99); Sodium 138 mmol/L (135-145); Total Bilirubin 1.7 mg/dl (0.2-1.3); Total Protein 5.4 g/dl (6.3-8.2); eGFR > 60.00
--- NOTE | 2024-08-09 10:18 | PHA.VAN.FU ---
Vancomycin Assessment / Plan
- Assessment
Renal Function: Stable
Concomitant Antimicrobials: cefepime
- Dosing Plan
Adjust Regimen to: Vanc 750mg Q12H starting at 1800
New Regimen Predicts: AUC (538), Peak (31.6), Trough (15.1)
- Monitoring Plan
No level(s) ordered at this time: consider levels in next few days
- Follow Up
Pharmacy will continue to follow.
Vancomycin Follow UP
- -
Patient Age: 53
Patient Sex: Female
Vancomycin Day #: 2
Indication: Bacteremia
Requesting Provider: Dr. Lloyd
Pertinent Antimicrobial Allergies:
penicillins - unknown (tolerates ceftriaxone 2023)
sulfa - unknown
Height / Weight:
Height 5 ft 3 in
Actual Weight 60.951 kg
Pertinent Past Medical History: RA, lupus
- Vital Signs / Lab Results
Temp Pulse Resp BP Pulse Ox
98.6 F 77 16 120/58 98
08/09/24 07:28 08/09/24 07:28 08/09/24 07:28 08/09/24 07:28 08/09/24 07:28
Lab Results - Hematology
08/08/24 08/09/24
13:23 07:46
WBC 3.2 L 2.3 L*
Lab Results - Chemistry
08/08/24 08/09/24
13:23 07:46
BUN 13 14
Creatinine 0.8 0.7
Estimated Creat Clear 67 76
Albumin 5.0 3.3 L D
08/08/24 08/08/24
13:23 21:00
Lactic Acid 2.3 H < 0.5 L
Lab Results - Urine
08/08/24
15:39
Urine Nitrite (Reflex) Negative
Leukocyte Esterase Rfl 1+ A
Ur Squamous Epith Cells 3-5
Microbiology Results
08/08/24 13:23 Influenza Types A & B (YULIANA) - Final
Nasal Swab Negative for Influenza A & B, NAAT
Negative results must be combined with clinical observations
and patient history.
Nucleic Acid Amplification test (NAAT)performed on the
[employer] platform.
[2024-08-09 10:19] LABS: Reticulocyte Count 2.1 % (0.4-2.8)
[2024-08-09 11:22] LABS: Glucose - Point of Care 194 mg/dl (70-99)
[2024-08-09] MEDS: PATIENT'S OWN INSULIN PUMP 7.36 UNITS SC (12:58)
[2024-08-09 14:03] LABS: Hematocrit 19.9 % (37.0-47.0); Hemoglobin 7.2 g/dL (12.0-16.0)
--- NOTE | 2024-08-09 14:05 | W.PN.HOSP.TC ---
Addendum entered and electronically signed by Jon Greene MD 08/09/24 22:39:
Attending Addendum-
I saw and evaluated the patient. I reviewed the resident�s note and agree with findings and plan as documented in the resident�s note. Sub: Patient last febrile in ED. Currently has no complaints. Full 12 point ROS reviewed and negative except as
documented Exam: Vitals reviewed in chart GEN-
PLAN:
#SIRS-unclear source
-Chest x-ray negative
-Flu and COVID-negative
-blood cultures-NGTD
-DC Vancomycin continue cefepime #2
-ID input appreciated
-check CT chest r/o PE
-check le Doppler r/o DVT
-BMbx apparently WNL-obtain records
-drug rxn? from rinvoq?
- t/c ct a/p if neg CT chest and continued fevers
# Anion gap metabolic acidosis secondary to lactic acidosis
- lactate trending down
- DC IVF
- repeat BMP in am
# Pancytopenia
- r/o viral etiology
- CTM
- from meds?
# Rheumatoid arthritis
-hold Rinvoq
# History of lupus erythematosus
-Continue prednisone
#History of autoimmune hemolytic anemia/Acute on Chronic Anemia
- monitor for hemolysis LDH, hapto, retic count
- LATRELL neg
- tx for HB<7
#History of autoimmune hepatitis
#Breast cancer status post bilateral mastectomy
-Continue exemestane
#Anxiety/restlessness
-Continue Lexapro
#Type 2 diabetes
-Continue insulin pump
#Essential hypertension
-Continue diltiazem
#History of hyponatremia
Full code
DVT prophylaxis�heparin
Regular diet
Time spent coordinating care, review of plan of care with resident, personally reviewed records in EMR, med rec, consults, notes, labs, radiology, d/w nursing � 58 mins
Original Note:
Today's Communication/Plan
-
Additional labs including esr, crp, ldh, retic, heptoglobin,procal
CT chest pe
Doppler b/l Le
Assessment / Plan
Assessment / Plan
53-year-old female past medical history of rheumatoid arthritis on Rinvoq, lupus, autoimmune hemolytic anemia, autoimmune hepatitis, breast cancer status post mastectomy bilaterally, anemia of chronic disease, anxiety, diabetes, hypertension,
hyponatremia presented with fever started on 08/04/24.
#SIRS (fever, tachycardia, leukopenia) on admission;unclear source
--Resolved
--Chest x-ray negative
--Flu and COVID-negative
--Blood cultures ngtd
--Empiric vancomycin/cefepime
--ID consulted
--check for ESR, CRP, procal
--check doppler b/l LE
--check CT chest PE
# Pancytopenia
--check heptoglobin, LDH, retic count
--reportedly she had BMBx at [facility] and it was unremarkable.
#Anion gap metabolic acidosis secondary to sepsis/lactic acidosis
--Gap closed
--will recheck lactic acid level
#Rheumatoid arthritis
--Hold Rinvoq with ongoing pancytopenia
--recommend to get re-evaluation with rheuma before restart
#Anemia of chronic disease
--monitor hb
--repeat h&H stable
--hold heparin sc and asa; oreder scd
--Currently asymptomatic
--Transfuse if hemoglobin less than 7 and platelets less than 10k
#History of lupus erythematosus
--Continue prednisone
#History of autoimmune hemolytic anemia
#History of autoimmune hepatitis
#Breast cancer status post bilateral mastectomy
--Continue exemestane
#Anxiety/restlessness
--Continue Lexapro
#Type 2 diabetes
--Continue insulin pump
#Essential hypertension
--Continue diltiazem
#History of hyponatremia
Full code
DVT prophylaxis�heparin
Regular diet
Anticipated Discharge: 24 - 48 hours
Subjective/Interval History
-
Date of Service: August 09, 2024
Offers no new complaints.
Objective Data
-
Labs:
Laboratory Results
08/09/24 08/09/24
07:46 12:38
WBC 2.3 L*
Hgb 7.2 L D 7.2 L
Hct 20.1 L* 19.9 L*
Plt Count 90 L D
Sodium 138
Potassium 4.0
Chloride 110 H
Carbon Dioxide 21 L
BUN 14
Creatinine 0.7
Glucose 131 H
Calcium 8.3 L
Total Bilirubin 1.7 H
AST 36
ALT 19
Alkaline Phosphatase 36 L
Vital Signs:
Vital Signs
Temp Pulse Resp BP Pulse Ox
98.6 F 77 16 120/58 98
08/09/24 07:28 08/09/24 07:28 08/09/24 07:28 08/09/24 07:28 08/09/24 07:28
I&O
08/08/24 08/09/24 08/10/24
06:59 06:59 06:59
Intake Total 960 / 960
Balance 960 / 960
Review of Systems
-
History Source: Patient
Constitutional: Reports Fever
Respiratory: Reports No Symptoms
Cardiac: Reports No Symptoms
Abdomen/GI: Reports No Symptoms
Genitourinary: Reports No Symptoms
Musculoskeletal: Reports No Symptoms
Neuro: Reports No Symptoms
Physical Exam
-
General: Well Nourished, No Apparent Distress and Conversant
HEENT: Normocephalic and Atraumatic
Respiratory: Clear to Auscultation
Cardiac: Regular Rhythm and S1/S2
GI: Soft, Nontender and Nondistended
Musculoskeletal: No Clubbing, No Cyanosis and No Edema
Skin: Warm and Dry
Neuro: Awake, Alert and Oriented
Hematologic / Lymphatic: No Lymphadenopathy
Psych: Calm
Data Reviewed
-
Diagnostic Radiology: Report Reviewed by me, Discussed with Physician and Discussed with Patient
Labs: Labs Reviewed by me, Discussed with Physician and Discussed with Patient
--- NOTE | 2024-08-09 14:34 | PN.DE.MGMTRT ---
Insulin Management
- -
08/09/2024 Diabetes Management for Insulin Pump
Patient admitted with fever. PMH Breast CA, autoimmune hemolytic anemia, chronic steroid use, rheumatoid arthritis, anemia, steroid induced diabetes in 2006. Prior to admission was using the tslim pump with DexCom, Humalog insulin and Trusteel
insulin infusion set. A1C 4.9.
Patient is awake alert and oriented able to discuss diabetes, sees Jose Falk PA-c for ongoing diabetes management. When I checked setting in her pump she has a full profile for exercise which has lower basal rates. She forgot to stop the
exercise profile and activate the daily profile. Changed to Daily profile
Insulin pump settings as follows:
Basal Carb ratio correction Target
12am .7 3 25 110
3am 1 3 25 110
5:30am 1.2 3 25 110
1pm 1.2 3 25 110
4:30PM 1.3 3 25 110
9pm 1.2 3 25 110
24 hour basal total 27.25
Patient is capable of continuing to use insulin pump.
Diabetes History
- -
Type of Diabetes: 2 requiring insulin
Pre-Admission Diabetes Regimen
08/09/24
07:46
Creatinine 0.7
Insulin Pump Settings
IP Diabetes Regimen
08/08/24 08/08/24 08/09/24
17:29 22:22 07:27
Glucose
POC Glucose 102 H 167 H 154 H
08/09/24 08/09/24
07:46 11:21
Glucose 131 H
POC Glucose 194 H
Meal type: Dinner
Amount consumed: 100%
Patient Education
[2024-08-09 15:19] LABS: Erythrocyte Sed Rate 65 mm/hour (0-20)
--- NOTE | 2024-08-09 15:54 | CON.ID ---
Consultation
-
Date/Time Consultation Requested: 08/08/2024 2232
Date/Time Consultation Performed: 08/09/2024 1532
Requesting Provider: Dr. Lloyd
Performing Provider: Dr. Christopher
Reason for Consultation: Fever
Chief Complaint / Past History
History of Present Illness
Roxy Mcadams is a 53-year-old female with significant history of RA/lupus, breast cancer, DM 2 being evaluated at the request of Dr. Lloyd regarding fever and SIRS. History is obtained from chart review, along with patient interview.
The patient is known to the Infectious Disease service, having been seen in 04/2024 for change in mental status associated with fevers. Ultimately no infectious etiology was discovered, and the patient reports she was in her usual state of health
since that time until approximately 5 days ago when she developed fever to 103.2 degrees. She took Motrin and Tylenol, and over the next 24 hours she seemed to improve, but the fever returned 3 days ago, and she came to the emergency room
yesterday. There, she was again found to be febrile, and empiric antibiotics were started. Infectious Diseases is asked to comment upon further antimicrobial management.
She denies any headache. She denies any chest pain, shortness of breath, cough or congestion. She denies any abdominal pain, nausea or vomiting. She denies any sick contacts. There has been no recent travel. She has a dog and the cat in the
household. Since her prior discharge, she has been followed by Heme-onc and notes that a prior bone marrow biopsy was found to be unrevealing. Patient reports that in her early teens she resided in [facility] [place]
Past History
Additional Past Medical History:
Breast cancer
DM
Anemia
Additional Past Surgical History:
Hysterectomy
Double mastectomy
Allergy History:
Latex, Natural Rubber Allergy (Verified 08/08/24 13:03)
Unknown
Penicillins Allergy (Verified 08/08/24 15:55)
Unknown, tolerated certriaxone in 2023
prochlorperazine [From Compazine] Allergy (Verified 08/08/24 13:03)
Unknown
Sulfa (Sulfonamide Antibiotics) Allergy (Verified 08/08/24 13:03)
Unknown
sumatriptan [From Imitrex] Allergy (Verified 08/08/24 13:03)
Unknown
Medications Reviewed: Yes
Current Antibiotics:
Vancomycin
Cefepime
Social History
Tobacco: Non-Smoker
Alcohol: None
Drug: None
Personal:
Living: With Family
Employment: Employed
Family History
Family History: Not Pertinent
Review of Systems
Vital Signs
Temp Pulse Resp BP Pulse Ox
98.6 F 77 16 120/58 98
08/09/24 07:28 08/09/24 07:28 08/09/24 07:28 08/09/24 07:28 08/09/24 07:28
Physical Exam
Physical Exam
Constitutional: No Acute Distress, Well Developed, Comfortable and Non-toxic
Eyes: Pupils Equal, Pupils Round, No Conjunctival Hemorrhage and Sclera Anicteric
Oral: No Thrush and No Ulcers
Cardiovascular: Regular Rate and S1/S2; Negative S3/S4
Pulmonary: Clear; Negative Wheezes or Rales
Gastrointestinal: Soft, Non Tender, Non Distended, Normal Bowel Sounds, No Rebound and No Guarding
Genito-Urinary: Negative CVA Tenderness
Extremities: Negative Edema, Cyanosis or Erythema
Skin: Warm and Dry; Negative Rash or Jaundice
Neurological: Awake, Alert and Oriented
Psychological: Calm
.
Lab / Diagnostic Study Results
08/09/24 12:38
08/09/24 07:46
Abs Immat Gran (auto) 0.0 10^3/uL (0-0.05) 08/09/24 07:46
Absolute Neuts (auto) 1.4 10^3/uL (1.4-6.5) 08/09/24 07:46
Absolute Lymphs (auto) 0.7 10^3/uL (1.2-3.4) L 08/09/24 07:46
Absolute Monos (auto) 0.2 10^3/uL (0.1-0.6) 08/09/24 07:46
Absolute Basos (auto) 0.0 10^3/uL (0-0.2) 08/09/24 07:46
Immature Gran % 0.4 % (0-0.5) 08/09/24 07:46
Neutrophils % 58.5 % (42.2-75.2) 08/09/24 07:46
Lymphocytes % 30.0 % (20.5-51.1) 08/09/24 07:46
Monocytes % 10.3 % (1.7-9.3) H 08/09/24 07:46
Eosinophils % 0.4 % (0-6) 08/09/24 07:46
Basophils % 0.4 % (0-2) 08/09/24 07:46
ESR 65 mm/hour (0-20) H 08/09/24 07:46
Lactic Acid < 0.5 mmol/L (0.7-2.0) L 08/08/24 21:00
Ur Squamous Epith Cells 3-5 /LPF (Few) 08/08/24 15:39
Microbiology Results
Micro:
08/08/24 13:23 Blood Culture - Preliminary
Blood/Venous No Growth in 24 hours- Final report to follow
08/08/24 15:39 Urine Culture - Final
Urine
08/08/24 16:43 Blood Culture - Pending
Blood/Venous
08/08/24 13:23 Influenza Types A & B (YULIANA) - Final
Nasal Swab Negative for Influenza A & B, NAAT
Negative results must be combined with clinical observations
and patient history.
Nucleic Acid Amplification test (NAAT)performed on the
[employer] NOW platform.
Laboratory Tests
08/08/24
13:23
SARS-CoV-2 Antigen Negative
Imaging:
08/08/2024 CXR (2 view): Mild elevation of the left hemidiaphragm unchanged from prior exams. No consolidation, effusion or pneumothorax noted. Please see full dictation for additional detail. Film personally viewed.
Assessment / Plan
Fever
Leukopenia
Anemia
Thrombocytopenia
Elevated ESR
Elevated bilirubin
Hx Breast cancer
DM
Rheumatoid arthritis
Recommendations:
Continue empiric cefepime while blood cultures pending and further workup ensues.
Discontinue further vancomycin. Can restart if MRSA recovered.
Monitor white count and temperature curve.
Trend hemoglobin.
Further recommendations as additional data is returned.
--- NOTE | 2024-08-09 15:57 | VATNOTE ---
20g IV for CT chest attempted x2 unsuccessfully; another VAT RN to try.
[2024-08-09 16:49] LABS: Glucose - Point of Care 157 mg/dl (70-99)
[2024-08-09 16:50] VITALS: BP 142/75
[2024-08-09] MEDS: PATIENT'S OWN INSULIN PUMP 4.2 UNITS SC (17:42)
[2024-08-09 21:32] LABS: Glucose - Point of Care 82 mg/dl (70-99)
[2024-08-09] MEDS: PATIENT'S OWN INSULIN PUMP SC (22:00)
[2024-08-09 23:25] VITALS: BP 120/55
[2024-08-10] MEDS: MAXIPIME 2000 MG IV ×3 (00:03→16:18)
[2024-08-10] MEDS: STERILE WATER FOR INJECTION 10 ML IV ×3 (00:03→16:17)
[2024-08-10] MEDS: TYLENOL 650 MG PO (00:13)
[2024-08-10] MEDS: NSS IV (01:19)
[2024-08-10 06:31] LABS: Lactic Acid 0.7 mmol/L (0.7-2.0)
[2024-08-10 06:46] LABS: % Basophils 0.4 % (0-2); % Eosinophils 0.9 % (0-6); % Immature Granulocytes 0.4 % (0-0.5); % Lymphocytes 39.1 % (20.5-51.1); % Monocytes 10.9 % (1.7-9.3); % Neutrophils 48.3 % (42.2-75.2); Absolute Lymphocytes 0.9 10^3/uL (1.2-3.4); Absolute Monocytes 0.3 10^3/uL (0.1-0.6); Absolute Neutrophils 1.1 10^3/uL (1.4-6.5); Hematocrit 20.6 % (37.0-47.0); Hemoglobin 7.4 g/dL (12.0-16.0); Mean Corp Hgb Conc. 35.9 g/dL (33.0-37.0); Mean Corpuscular Hgb 30.8 pg (27.0-31.0); Mean Corpuscular Volume 85.8 fL (81.0-99.0); Mean Platelet Volume 11.4 fL (7.4-10.4); Nucleated Red Blood Cells % 0 %; Platelet Count 106 10^3/uL (130-400); Red Cell Dist. Width 14.6 % (11.5-14.5); White Blood Cell Count 2.3 10^3/uL (4.8-10.8)
[2024-08-10 07:14] LABS: ALT (SGPT) 20 U/L (0-35); AST (SGOT) 36 U/L (14-36); Albumin 3.5 g/dl (3.5-5.0); Alkaline Phosphatase 37 U/L (38-126); Blood Urea Nitrogen 11 mg/dl (7-17); Calcium 8.9 mg/dl (8.4-10.2); Carbon Dioxide 23 mmol/L (22-30); Chloride 107 mmol/L (98-107); Estimated Creatinine Clearance 67 ml/min; Glucose 84 mg/dl (70-99); Magnesium 1.9 mg/dl (1.6-2.3); Potassium 3.8 mmol/L (3.5-5.1); Sodium 139 mmol/L (135-145); Total Bilirubin 1.5 mg/dl (0.2-1.3); Total Protein 5.8 g/dl (6.3-8.2); eGFR > 60.00
--- NOTE | 2024-08-10 07:25 | W.PN.HOSP.TC ---
Addendum entered and electronically signed by Jon Greene MD 08/10/24 22:50:
Attending Addendum-
I saw and evaluated the patient. I reviewed the resident�s note and agree with findings and plan as documented in the resident�s note. Sub: afebrile feels good wants to go home. Currently has no complaints. Full 12 point ROS reviewed and negative
except as documented Exam: Vitals reviewed in chart GEN-
PLAN:
#SIRS-unclear source
-Chest x-ray negative
-Flu and COVID-negative
-blood cultures-NGTD x 48 hours
-DC Vancomycin and cefepime x 2 days
-ID input appreciated
-CT chest r/o PE - no pe no infectious source
-B/L LE Doppler r/o DVT- no DVT
-BMbx apparently WNL-obtain records
-drug rxn? from rinvoq?
- d/w ID stable for DC home
# Anion gap metabolic acidosis secondary to lactic acidosis
-resolved
# Pancytopenia
- r/o viral etiology
- CTM
- from meds?
# Rheumatoid arthritis
-restart Rinvoq as OP
# History of lupus erythematosus
-Continue prednisone
#History of autoimmune hemolytic anemia/Acute on Chronic Anemia
- no signs of hemolysis
- LATRELL neg
- tx for HB<7
#History of autoimmune hepatitis
#Breast cancer status post bilateral mastectomy
-Continue exemestane
#Anxiety/restlessness
-Continue Lexapro
#Type 2 diabetes
-Continue insulin pump
#Essential hypertension
-Continue diltiazem
#History of hyponatremia
Full code
DVT prophylaxis�heparin
Regular diet
Time spent coordinating care, DC planning, review of DC plan of care with resident, transition of care, review of records, med rec/scripts sent electronically, consults, notes, d/w consultants, nursing, ID and CM� 31 mins
Original Note:
Today's Communication/Plan
-
Discharge home today
Follow-up with PCP and rheumatology outpatient.
Assessment / Plan
Assessment / Plan
53-year-old female past medical history of rheumatoid arthritis on Rinvoq, lupus, autoimmune hemolytic anemia, autoimmune hepatitis, breast cancer status post mastectomy bilaterally, anemia of chronic disease, anxiety, diabetes, hypertension,
hyponatremia presented with fever started on 08/04/24.
#SIRS (fever, tachycardia, leukopenia) on admission;unclear source
--Resolved
--Chest x-ray negative
--Flu and COVID-negative
--Blood cultures ngtd
--vancomycin d/c/ continue Empiric cefepime day 3
--ID following
--Elevated ESR 65, CRP 30.3, procal <0.05
--Haptoglobin pending
--doppler b/l LE negative for dvt
--CT chest PE negative for PE
# Pancytopenia
--Stable
--retic count 2.1; not accurate with low hb
--reportedly she had BMBx at [facility] and it was unremarkable.
#Anion gap metabolic acidosis secondary to sepsis/lactic acidosis
--Gap closed
--lactic acid wnl
#Rheumatoid arthritis
--Hold Rinvoq with ongoing pancytopenia
--recommend to get re-evaluation with rheuma before restart
#Anemia of chronic disease
-- Hemoglobin stable at this time
--hold heparin sc and asa
--Currently asymptomatic
--Transfuse if hemoglobin less than 7 and platelets less than 10k
#History of lupus erythematosus
--Continue prednisone
#History of autoimmune hemolytic anemia
#History of autoimmune hepatitis
#Breast cancer status post bilateral mastectomy
--Continue exemestane
#Anxiety/restlessness
--Continue Lexapro
#Type 2 diabetes
--Continue insulin pump
#Essential hypertension
--Continue diltiazem
#History of hyponatremia
Full code
DVT prophylaxis�scd
Regular diet
Anticipated Discharge: Today
Subjective/Interval History
-
Date of Service: August 10, 2024
Offers no new complaints. She thinks it was a lupus flareup and remains afebrile for more than 24 hours.
Objective Data
-
Labs:
Laboratory Results
08/10/24
06:07
WBC 2.3 L*
Hgb 7.4 L
Hct 20.6 L*
Plt Count 106 L
Sodium 139
Potassium 3.8
Chloride 107
Carbon Dioxide 23
BUN 11
Creatinine 0.8
Glucose 84
Calcium 8.9
Total Bilirubin 1.5 H
AST 36
ALT 20
Alkaline Phosphatase 37 L
Vital Signs:
Vital Signs
Temp Pulse Resp BP Pulse Ox
99.1 F 77 18 120/55 98
08/09/24 23:25 08/09/24 23:25 08/09/24 23:25 08/09/24 23:25 08/09/24 23:25
I&O
08/09/24 08/10/24 08/11/24
06:59 06:59 06:59
Intake Total 960 / 960 0 / 0
Balance 960 / 960 1839
Review of Systems
-
History Source: Patient
Constitutional: Reports No Symptoms
Respiratory: Reports No Symptoms
Cardiac: Reports No Symptoms
Abdomen/GI: Reports No Symptoms
Genitourinary: Reports No Symptoms
Musculoskeletal: Reports No Symptoms
Neuro: Reports No Symptoms
Physical Exam
-
General: Well Developed, Well Nourished, No Apparent Distress and Conversant
HEENT: Normocephalic and Atraumatic
Respiratory: Clear to Auscultation
Cardiac: Regular Rhythm and S1/S2
GI: Soft, Nontender and Nondistended
Musculoskeletal: No Clubbing, No Cyanosis and No Edema
Skin: Warm and Dry
Neuro: Awake, Alert and Oriented
Hematologic / Lymphatic: No Lymphadenopathy
Psych: Calm
Data Reviewed
-
CT Scan: Report Reviewed by me
Ultrasound: Report Reviewed by me
Labs: Labs Reviewed by me, Discussed with Physician and Discussed with Patient
[2024-08-10 07:29] LABS: Procalcitonin < 0.05 ng/ml (0.0-0.25)
[2024-08-10 07:44] LABS: Glucose - Point of Care 84 mg/dl (70-99)
[2024-08-10] MEDS: THERAGRAN 1 TABLET PO (07:47)
[2024-08-10] MEDS: CARDIZEM CD 180 MG PO (07:48)
[2024-08-10] MEDS: CRESTOR 5 MG PO (07:48)
[2024-08-10] MEDS: PROTONIX 40 MG PO (07:48)
[2024-08-10] MEDS: AROMASIN 25 MG PO (07:48)
[2024-08-10] MEDS: DELTASONE 5 MG PO (07:48)
[2024-08-10] MEDS: LEXAPRO 10 MG PO (07:49)
[2024-08-10 07:51] VITALS: BP 137/71
--- NOTE | 2024-08-10 09:52 | CM ---
Addendum entered by Bruna Huggins RN 08/12/24 09:34:
Pt discharged pt after CM hours .
Original Note:
Alert awake oriented patient who lives with her in a 2 story home with 2 steps to enter and 10 steps to bed/bathroom. She is independent in activates of daily living.She does not drive .No adaptive devices.
Had VN in past . No SNF hx
Pharmacy [facility]
PCP Dr Gustafson
PLAN Home with no needs
[2024-08-10] MEDS: PATIENT'S OWN INSULIN PUMP 3.34 UNITS SC (09:55)
[2024-08-10 11:33] LABS: Glucose - Point of Care 179 mg/dl (70-99)
--- NOTE | 2024-08-10 12:39 | PN.DE.MGMTRT ---
Insulin Management
- -
08/10/2024 Diabetes Management for Insulin Pump
Patient admitted with fever. PMH Breast CA, autoimmune hemolytic anemia, chronic steroid use, rheumatoid arthritis, anemia, steroid induced diabetes in 2006. Prior to admission was using the tslim pump with DexCom, Humalog insulin and Trusteel
insulin infusion set. A1C 4.9.
Patient is awake alert and oriented able to discuss diabetes, sees Jose Falk PA-c for ongoing diabetes management.
08/09 When I checked setting in her pump she has a full profile for exercise which has lower basal rates. She forgot to stop the exercise profile and activate the daily profile. Changed to Daily profile.
08/10 Since profile changed glucose improved 82 @ HS 84 fasting. Will continue insulin pump at settings below.
Insulin pump settings as follows:
Basal Carb ratio correction Target
12am .7 3 25 110
3am 1 3 25 110
5:30am 1.2 3 25 110
1pm 1.2 3 25 110
4:30PM 1.3 3 25 110
9pm 1.2 3 25 110
24 hour basal total 27.25
Patient is capable of continuing to use insulin pump.
Diabetes History
- -
Type of Diabetes: 2 requiring insulin
Pre-Admission Diabetes Regimen
08/10/24
06:07
Creatinine 0.8
Insulin Pump Settings
IP Diabetes Regimen
08/09/24 08/09/24 08/10/24
16:47 21:31 06:07
Glucose 84
POC Glucose 157 H 82
08/10/24 08/10/24
07:43 11:31
Glucose
POC Glucose 84 179 H
Patient Education
[2024-08-10] MEDS: PATIENT'S OWN INSULIN PUMP 4.4 UNITS SC (13:22)
[2024-08-10 15:26] VITALS: BP 126/69
[2024-08-10 16:50] LABS: Glucose - Point of Care 192 mg/dl (70-99)
--- NOTE | 2024-08-10 17:12 | W.DCSUMMARY ---
Addendum entered and electronically signed by Jon Greene MD 08/10/24 22:51:
Read, reviewed, and agree. See same day progress note for additional details.
Joshua Greene MD
Original Note:
Documented by User: Darrel Gonzalez MD, Resident 08/10/24 17:59
Discharge Summary
Discharge Data
Date of Admission: 08/08/24
Date of Discharge: 08/10/24
-
Pending Results: Yes (Haptoglobin)
Hospital Course
Discharging Physician : Darrel Gonzalez MD ; Jon Lora MD
Disposition : Home
Primary care physician : Moshe Gustafson
Principal Discharge diagnosis : SIRS on admission; unclear source, pancytopenia, anion gap metabolic acidosis
Chronic Discharge diagnosis : pancytopenia, rheumatoid arthritis, anemia of chronic disease, history of lupus, history of autoimmune hemolytic anemia, history of intermittent hepatitis, breast cancer status post bilateral mastectomy,
anxiety/restlessness, type 2 diabetes, essential hypertension, history of hyponatremia
Hospital Course : 53-year-old female past medical history of rheumatoid arthritis on Rinvoq, lupus, autoimmune hemolytic anemia, autoimmune hepatitis, breast cancer status post mastectomy bilaterally, anemia of chronic disease, anxiety, diabetes,
hypertension, hyponatremia presenting with fever since 08/04/2024 with highest fever of 102.3F. Over the weekend it got better but came back the day before coming to the hospital. She denied chest pain, abdominal pain, nausea or vomiting. She
admitted to have diarrhea on Thursday after eating dinner which resolved. Denied any urinary symptoms or rash. Patient had similar symptoms previously no etiology was found. Patient did live near [facility] and moved away when she was 15 years old.
Patient was admitted from 05/01 to 05/07 for change in mental status. MRI was negative. She had fevers at that time. Echo was unremarkable. Infectious workup was negative. Patient developed pancytopenia. ID was consulted. Patient completed
outpatient bone marrow biopsy which reportedly did not show anything remarkable. There has been no recent travel. She has a dog and the cat in the household. Blood cultures were obtained and initially she was given empiric vancomycin and cefepime
however vancomycin was discontinued per ID recommendations and she received cefepime for the duration of the hospital stay. Bilateral lower extremity Doppler was obtained which was negative, CT chest PE was obtained and was unremarkable as well.
She had anion gap metabolic acidosis secondary to lactic acidosis on admission which resolved. She was afebrile for more than 24 hours before discharge. Blood culture remained negative to date. ESR and CRP were found to be elevated however there
was no clear source. There is a possibility that he developed fever as a potential side effect from rinvoq and was instructed to follow-up with rheumatology for alternate options. Patient's hemoglobin has been stable. Patient being discharged
home with recommendation to follow-up outpatient with PCP, rheumatology and heme/onc.
Important imaging findings : CR Chest - 2 Views : No acute pulmonary process.
US Periph Venous LOWER Ext Enrico:No sonographic evidence for lower extremity venous thrombosis.
CT Chest PE Study: Examination is negative for pulmonary embolism.
Mild to moderate patchy parenchymal opacity within the posterior lungs bilaterally, most likely dependent atelectasis.
Spleen appears to be enlarged, although not fully included on the [id number].
Discharge Plan
-
Patient Disposition: Home (Routine Discharge)
Discharge Diagnosis/Procedures: SIRS on admission; unclear source, pancytopenia, anion gap metabolic acidosis, rheumatoid arthritis, anemia of chronic disease, history of lupus, history of autoimmune hemolytic anemia, history of intermittent
hepatitis, breast cancer status post bilateral mastectomy, anxiety/restlessness, type 2 diabetes, essential hypertension, history of hyponatremia
Condition: Good
Diet: Diabetic, Carb Controlled
Activity: No restrictions
Driving Restrictions: As prior to admission
Bathing Restrictions: None
Blood Work: CBC in 3 to 5 days with PCP
Referrals:
Moshe Gustafson MD [Family Provider] - in less than 1 week
Additional Discharge Medication Instructions: Follow-up with PCP within 1 week to consider repeat CBC in 1 week sooner if any bleeding
Follow-up with rheumatology before restarting rinvoq; consider alternate options
Follow-up with heme/onc
Prescriptions:
Continued
diltiazem HCl 180 mg Capsule,Extended Release 24 Hr
180 mg PO DAILY
prednisone 5 mg Tablet
5 mg PO DAILY
aspirin 81 mg Tablet,Delayed Release (Dr/Ec)
81 mg PO DAILY
exemestane 25 mg Tablet
25 mg PO DAILY
pantoprazole [Protonix] 40 mg Tablet,Delayed Release (Dr/Ec)
40 mg PO DAILY
rosuvastatin [Crestor] 5 mg Tablet
5 mg PO DAILY
Mounjaro 5 mg/0.5 mL Pen Injector
5 mg SC FR
Patient Own Insulin Pump
0 units SC .VIA HUMALOG
therapeutic multivitamin Tablet
1 tab PO DAILY
cyanocobalamin (vitamin B-12) 1,000 mcg/mL Solution
1,000 mcg SC QMONTH
ibuprofen 200 mg Tablet
600 mg PO Q6HPRN PRN (Reason: mild pain/fever)
escitalopram oxalate 10 mg Tablet
10 mg PO DAILY
Held
Rinvoq 15 mg Tablet Extended Release 24 Hr
15 mg PO DAILY
Hold Instructions: Resume on 05/16/24. Recommend to hold till improvement in leukopenia and after discussion with the oncology and rheumatology
Discharge Orders:
Discharge Patient (As Directed); Ordered 08/10/24
Ordered By: Darrel Gonzalez
Discharge Date and Time
Discharge Date/Time: 08/10/24 18:42
Print Language: ECUADOREAN

Documented by User: Jon Greene MD 08/10/24 22:46
Discharge Summary
Discharge Data
Date of Admission: 08/08/24
Date of Discharge: 08/10/24
Discharge Plan
-
Patient Disposition: Home (Routine Discharge)
Discharge Diagnosis/Procedures: SIRS on admission; unclear source, pancytopenia, anion gap metabolic acidosis, rheumatoid arthritis, anemia of chronic disease, history of lupus, history of autoimmune hemolytic anemia, history of intermittent
hepatitis, breast cancer status post bilateral mastectomy, anxiety/restlessness, type 2 diabetes, essential hypertension, history of hyponatremia
Condition: Good
Diet: Diabetic, Carb Controlled
Activity: No restrictions
Driving Restrictions: As prior to admission
Bathing Restrictions: None
Blood Work: CBC in 3 to 5 days with PCP
Referrals:
Moshe Gustafson MD [Family Provider] - in less than 1 week
Additional Discharge Medication Instructions: Follow-up with PCP within 1 week to consider repeat CBC in 1 week sooner if any bleeding
Follow-up with rheumatology before restarting rinvoq; consider alternate options
Follow-up with heme/onc
Prescriptions:
Continued
diltiazem HCl 180 mg Capsule,Extended Release 24 Hr
180 mg PO DAILY
prednisone 5 mg Tablet
5 mg PO DAILY
aspirin 81 mg Tablet,Delayed Release (Dr/Ec)
81 mg PO DAILY
exemestane 25 mg Tablet
25 mg PO DAILY
pantoprazole [Protonix] 40 mg Tablet,Delayed Release (Dr/Ec)
40 mg PO DAILY
rosuvastatin [Crestor] 5 mg Tablet
5 mg PO DAILY
Mounjaro 5 mg/0.5 mL Pen Injector
5 mg SC FR
Patient Own Insulin Pump
0 units SC .VIA HUMALOG
therapeutic multivitamin Tablet
1 tab PO DAILY
cyanocobalamin (vitamin B-12) 1,000 mcg/mL Solution
1,000 mcg SC QMONTH
ibuprofen 200 mg Tablet
600 mg PO Q6HPRN PRN (Reason: mild pain/fever)
escitalopram oxalate 10 mg Tablet
10 mg PO DAILY
Held
Rinvoq 15 mg Tablet Extended Release 24 Hr
15 mg PO DAILY
Hold Instructions: Resume on 05/16/24. Recommend to hold till improvement in leukopenia and after discussion with the oncology and rheumatology
Discharge Orders:
Discharge Patient (As Directed); Ordered 08/10/24
Ordered By: Darrel Gonzalez
Discharge Date and Time
Discharge Date/Time: 08/10/24 18:42
Print Language: ECUADOREAN
--- NOTE | 2024-08-10 17:20 | W.PN.ID1 ---
Date of Service
Date of Service: August 10, 2024
Today's Communication
Discontinue antibiotics.
Assessment / Plan
Fever
Leukopenia
Anemia
Thrombocytopenia
Elevated ESR
Elevated bilirubin
Hx Breast cancer
DM
Rheumatoid arthritis
Recommendations:
Fever improved.
Cultures negative thus far.
Leukopenia persists, although differential not indicative of a bacterial infection.
Discontinue further antibiotics.
����������������������������������������������������������
Chief Complaint
-: Fever
Subjective / Review of Systems
Patient seen and examined. Denies specific complaints today.
Review of Systems: No Fever
Vital Signs / Physical Exam
Vital Signs
Vital Signs
Temp Pulse Resp BP Pulse Ox
100.1 F 83 16 126/69 98
08/10/24 15:26 08/10/24 15:26 08/10/24 15:26 08/10/24 15:26 08/10/24 15:26
Physical Exam
Constitutional: No Acute Distress, Comfortable and Cachetic
Eyes: Sclera Anicteric
Cardiovascular: Regular Rate
Pulmonary: Non Labored
Gastrointestinal: Soft, Non Tender and Non Distended
Skin: Warm and Dry; Negative Rash or Jaundice
Neurological: Awake and Alert
Psychological: Calm
Objective Data
Lab Data
Lab Results
08/10/24 06:07
08/10/24 06:07
ESR 65 mm/hour (0-20) H 08/09/24 07:46
Estimated Creat Clear 67 ml/min 08/10/24 06:07
Lactic Acid 0.7 mmol/L (0.7-2.0) 08/10/24 06:07
Total Bilirubin 1.5 mg/dl (0.2-1.3) H 08/10/24 06:07
AST 36 U/L (14-36) 08/10/24 06:07
ALT 20 U/L (0-35) 08/10/24 06:07
Alkaline Phosphatase 37 U/L (38-126) L 08/10/24 06:07
C-Reactive Protein 30.30 mg/L (0.0-10.00) H 08/09/24 07:46
Most recent labs reviewed.
Micro Results:
08/08/24 16:43 Blood Culture - Preliminary
Blood/Venous No Growth in 48 hours- Final report to follow
08/08/24 13:23 Blood Culture - Preliminary
Blood/Venous No Growth in 48 hours- Final report to follow
08/08/24 15:39 Urine Culture - Final
Urine
08/08/24 13:23 Influenza Types A & B (YULIANA) - Final
Nasal Swab Negative for Influenza A & B, NAAT
Negative results must be combined with clinical observations
and patient history.
Nucleic Acid Amplification test (NAAT)performed on the
Qt Software platform.
Imaging:
08/08/2024 CXR (2 view): Mild elevation of the left hemidiaphragm unchanged from prior exams. No consolidation, effusion or pneumothorax noted. Please see full dictation for additional detail. Film personally viewed.
Care Review
Plan reviewed with: Other Provider (Resident)
[2024-08-10] MEDS: PATIENT'S OWN INSULIN PUMP 12.7 UNITS SC (17:26)
[2024-08-10 23:55] LABS: Haptoglobin <10 mg/dL (30-200)
== END 2024-08-10 18:42 | disposition home or self-care (01) | DRG 864 ==
LOC: 3 WEST ACU 16:25
PROVIDERS: Nurse Practitioner Family; Student in an Organized Health Care Education/Training Program; ADMITTING PHYSICIAN Hospitalist; ATTENDING PHYSICIAN Family Medicine; EMERGENCY PHYSICIAN Emergency Medicine; FAMILY PHYSICIAN Internal Medicine; OTHER PHYSICIAN Internal Medicine Infectious Disease
DX: R50.9 Fever, unspecified (principal); R65.10 Systemic inflammatory response syndrome (SIRS) of non-infectious origin without acute organ dysfunction; D59.10 Autoimmune hemolytic anemia, unspecified; E87.20 Acidosis, unspecified; D61.818 Other pancytopenia; D84.9 Immunodeficiency, unspecified; E11.9 Type 2 diabetes mellitus without complications; D63.8 Anemia in other chronic diseases classified elsewhere; M06.9 Rheumatoid arthritis, unspecified; K75.4 Autoimmune hepatitis; F41.9 Anxiety disorder, unspecified; M32.9 Systemic lupus erythematosus, unspecified; I10 Essential (primary) hypertension; Z11.52 Encounter for screening for COVID-19; Z79.52 Long term (current) use of systemic steroids; Z88.0 Allergy status to penicillin; Z88.2 Allergy status to sulfonamides; Z79.82 Long term (current) use of aspirin; Z96.41 Presence of insulin pump (external) (internal); Z90.710 Acquired absence of both cervix and uterus; Z90.13 Acquired absence of bilateral breasts and nipples; Z85.3 Personal history of malignant neoplasm of breast; Z79.811 Long term (current) use of aromatase inhibitors; Z79.4 Long term (current) use of insulin
CPT/HCPCS: 71046; 71275; 80053; 81003; 81015; 82962; 83010; 83605; 83735; 84145; 85014; 85018; 85025; 85045; 85652; 86140; 86850; 86900; 86901; 87040; 87086; 87502; 87811; 93005; 93970; 96360; 99285; Q9967

== ENCOUNTER 2024-12-04 17:44 | Inpatient (IN) | payer OTHER, SELFPAY ==
[2024-12-04] VITALS (7 sets, daily range): BP systolic 127–155; BP diastolic 74–85; BMI 24.3; BMI 22.7
[2024-12-04 14:15] LABS: % Immature Granulocytes 0.6 % (0-0.5); % Lymphocytes 22.3 % (20.5-51.1); % Monocytes 7.7 % (1.7-9.3); % Neutrophils 69.4 % (42.2-75.2); Absolute Lymphocytes 0.8 10^3/uL (1.2-3.4); Absolute Monocytes 0.3 10^3/uL (0.1-0.6); Absolute Neutrophils 2.3 10^3/uL (1.4-6.5); Hemoglobin 9.4 g/dL (12.0-16.0); Mean Corp Hgb Conc. 36.2 g/dL (33.0-37.0); Mean Corpuscular Hgb 30.7 pg (27.0-31.0); Mean Platelet Volume 11.1 fL (7.4-10.4); Nucleated Red Blood Cells % 0 %; Platelet Count 94 10^3/uL (130-400); Red Blood Cell Count 3.06 10^6/uL (4.20-5.40); Red Cell Dist. Width 15.7 % (11.5-14.5); White Blood Cell Count 3.4 10^3/uL (4.8-10.8)
[2024-12-04 14:26] LABS: COVID-19 Antigen Negative (Negative)
[2024-12-04 15:22] LABS: ALT (SGPT) 30 U/L (0-35); AST (SGOT) 44 U/L (14-36); Albumin 4.3 g/dl (3.5-5.0); Alkaline Phosphatase 52 U/L (38-126); Blood Urea Nitrogen 11 mg/dl (7-17); Calcium 9.3 mg/dl (8.4-10.2); Carbon Dioxide 23 mmol/L (22-30); Chloride 100 mmol/L (98-107); Glucose 189 mg/dl (70-99); Potassium 4.3 mmol/L (3.5-5.1); Sodium 131 mmol/L (135-145); Total Protein 6.7 g/dl (6.3-8.2); eGFR > 60.00
--- NOTE | 2024-12-04 15:26 | ED.GENMED ---
History of Present Illness
General
Chief Complaint: Fever
Source: patient
Exam Limitations: none
Time Seen by Provider: 12/04/24 15:07
Nursing documentation reviewed up to this point in time: agreed with
History of Present Illness
History of Present Illness:
pt is a 53 y/o F with h/o autoimmune disease (lupus/RA) on plaquenil and rinvoq
here with fever onset this am 102
took tylenol at 10 am
also with headche and joint pain, mostly hands/elbows
this is similar to other 2 episodes of fever without source, apr 2024 and 07/2024
pt garcia extensive w/u without source
pt was transufsed due to anemia
usually platelets are low
usual wbc is also low and she has had neutropenia before
torrey sore throat, cough, cold symptoms
SHE IS HAVING SHAKING CHILLS CURRENTLY
Past History
Past History
ED Past Medical History: IDDM and Other (Anemia)
ED Past Surgical History: , Gynecological (Hysterectomy) and Other (Double mastectomy)
Social History
Tobacco: Non-smoker
Alcohol: None
Drug: None
Personal:
Living: with family
Phy Exam
Physical Exam
Physical Exam:
GENERAL: Alert ,SHAKING CHILLS
EYE: pupils equal and reactive
NECK: Supple, no meninigimus
ENT: o/p clr, mmm.
CARDIAC: Regular rate and rhythm .
LUNGS: Clear breath sounds bilaterally, no acute respiratory distress, no wheezes/rales/rhonchi
ABDOMEN: Soft, without focal tenderness, no r/g, no cvat, normal bowel sounds
NEUROLOGICAL: Alert and oriented, no focal neuro deficits
SKIN: Warm and dry, skin intact.
MUSCULOSKELETAL: No edema, well perfused. neg katya's sign
joint changes assocaited with RA but no focal swelling, redness; full ROM
PSYCH: Normal and appropriate interaction.
Course
Orders/Labs/Results
Orders:
Orders
12/04/24 13:58
CBC/With Diff [Complete Blood Count/With Diff] Urgent
CMP [Comprehensive Metabolic Panel] Urgent
COVID-19 Antigen Urgent
Source: Nasal Swab
INF RAPID [Influenza A+B Rapid Molecular] Urgent
ESTEFANIA Source: Nasal Swab
Specimen Description:
12/04/24 15:36
0.9% Sodium Chloride 1000 ml [Nss] 1,000 ml IV BOLUS
Acetaminophen [Tylenol] 1,000 mg PO NOW STA
Ketorolac [Toradol] 30 mg IV NOW STA
12/04/24 15:37
CR Chest - 2 Views Urgent
Comment:
Reason For Exam: fever
12/04/24 15:38
Urinalysis Reflex To Culture Urgent
12/04/24 16:05
Lactic Acid Urgent
Blood Culture Q30M
ESTEFANIA Source: Blood/Venous
Specimen Description:
12/04/24 16:15
Blood Culture Q30M
ESTEFANIA Source: Blood/Venous
Specimen Description:
12/04/24 16:57
Cefepime HCl [Maxipime] 2,000 mg IV NOW STA
Abnormal Lab Results
12/04/24
13:58
WBC 3.4 L 10^3/uL
(4.8-10.8)
RBC 3.06 L 10^6/uL
(4.20-5.40)
Hgb 9.4 L g/dL
(12.0-16.0)
Hct 26.0 L %
(37.0-47.0)
RDW 15.7 H %
(11.5-14.5)
Plt Count 94 L 10^3/uL
(130-400)
MPV 11.1 H fL
(7.4-10.4)
Absolute Lymphs (auto) 0.8 L 10^3/uL
(1.2-3.4)
Immature Gran % 0.6 H %
(0-0.5)
Sodium 131 L mmol/L
(135-145)
Glucose 189 H mg/dl
(70-99)
Total Bilirubin 2.0 H mg/dl
(0.2-1.3)
AST 44 H U/L
(14-36)
12/04/24 13:58
12/04/24 13:58
Vital Signs
Initial and Last Documented VS:
Initial Vital Signs
Temp Pulse Resp BP Pulse Ox
37.3 C 102 15 134/85 98
12/04/24 13:39 12/04/24 13:39 12/04/24 13:39 12/04/24 13:39 12/04/24 13:39
Last Documented Vital Signs
Temp Pulse Resp BP Pulse Ox
38.3 C H 88 19 145/79 94
12/04/24 15:48 12/04/24 16:30 12/04/24 16:30 12/04/24 16:24 12/04/24 16:30
MDM/Problems Addressed
Differential Diagnosis Includes:
fever, viral syndrome, lupus flare, uti, pneumonia, covid, flu
MDM/Problems Addressed:
53 y/o F
immunosuppressed due to conditions of lupus vs. RA
on steroids prednisone daily
here with fever today 102, headache, joint pain
took motrin [employer] and now feels shaking chills
fever 100.6 for me
no focal findings; neck supple
no uri sxs
chronic leukopenia
not neutropenic
anemic but stable
lactate normal
will check blood cx and UA
d/w dr. blanco
will empirically treat with cefepime
*Critical Care Note
Total Time (30-74mins, 75-104mins- exclusive of procedures): Not Applicable
ED Attending Note
-
Portions of this chart may have been created with voice recognition software.� Occasional wrong word or��sound alike� substitutions may have occurred due to the inherent limitations of voice recognition software.
Discharge Plan
Departure
Patient Disposition: Admit
Date of Disposition: 12/04/24
Time of Disposition: 16:34
Admit to: Med/Surg
Presentation/result/management discussed w/ accepting MD/DO: Hospitalist
Condition: Fair
Covid-19: Not Applicable
Discharge Problem:
Fever, Acquired immunocompromised state
Prescriptions:
No Action
diltiazem HCl 180 mg Capsule,Extended Release 24 Hr
180 mg PO DAILY
prednisone 5 mg Tablet
5 mg PO DAILY
aspirin 81 mg Tablet,Delayed Release (Dr/Ec)
81 mg PO DAILY
exemestane 25 mg Tablet
25 mg PO DAILY
pantoprazole [Protonix] 40 mg Tablet,Delayed Release (Dr/Ec)
40 mg PO DAILY
rosuvastatin [Crestor] 5 mg Tablet
5 mg PO DAILY
Rinvoq 15 mg Tablet Extended Release 24 Hr
15 mg PO DAILY
Mounjaro 5 mg/0.5 mL Pen Injector
5 mg SC FR
Patient Own Insulin Pump
0 units SC .VIA HUMALOG
therapeutic multivitamin Tablet
1 tab PO DAILY
cyanocobalamin (vitamin B-12) 1,000 mcg/mL Solution
1,000 mcg SC QMONTH
ibuprofen 200 mg Tablet
600 mg PO Q6HPRN PRN (Reason: mild pain/fever)
escitalopram oxalate 10 mg Tablet
10 mg PO DAILY
Referrals:
Moshe Gustafson MD [Family Provider, Internal Medicine]
Interventions
Interventions:
*Risk Screen - Suicide Last Done: 12/04/24 13:39
*General Assessment Last Done: 12/04/24 13:39
*Neglect/Abuse Screening Last Done: 12/04/24 13:39
*ED- Fall Risk Assessment Last Done: 12/04/24 15:47
*ED COVID-19 Vaccine History Last Done: 12/04/24 15:47
ED- Neurological Assessment Last Done: 12/04/24 16:41
ED-Skin Assessment Last Done: 12/04/24 16:41
Discharge Date and Time
Print Language: RUSSIAN
[2024-12-04] MEDS: TYLENOL 1000 MG PO (15:49)
[2024-12-04] MEDS: TORADOL 30 MG IV (16:01)
[2024-12-04] MEDS: NSS 1000 IV ×2 (16:02→20:19)
[2024-12-04 16:31] LABS: Lactic Acid 1.5 mmol/L (0.7-2.0)
--- NOTE | 2024-12-04 17:04 | HPS.HSE ---
Family Physician
-
Family Physician: Moshe Gustafson
Chief Complaint
-
Fever with shaking chills
History of Present Illness
53F Immunosuppressed host chronically on Prednisone , Plaquenil, Rinoq, Rheumatoid arthritis on Rinvoq, lupus, autoimmune hemolytic anemia, autoimmune hepatitis, breast cancer status post mastectomy bilaterally, anemia of chronic disease, anxiety,
diabetes, hypertension, hyponatremia seen at ER:
- onset of fever and shaking chills T 102 this AM , took tylenol at 10 am
- report headche and joint pain, mostly hands/elbows
- similar to other 2 episodes of fever without source, apr 2024 and 07/2024
- HX extensive FUO w/u without source
- Known HX Chr pancytpopenis
ROS: torrey sore throat, cough, cold symptoms
Medical History
Past Medical History
Past Medical History: Reports Cancer (breast cancer status post mastectomy bilaterally, ), HTN, NIDDM, Psychiatric ( anxiety,) and Other (rheumatoid arthritis on Rinvoq, lupus, autoimmune hemolytic anemia, autoimmune hepatitis, anemia of chronic
disease,hyponatremia)
Past Surgical History: Reports , Gynocological and Other ((breast cancer status post mastectomy bilaterally, ) and Other (Double mastectomy))
Additional Past Surgical History:
breast cancer status post mastectomy bilaterally,
Social History
Tobacco: Non-smoker
Alcohol: None
Drug: None
Family History
Family History: Not pertinent
Allergies / Home Medications
Allergies reflects when Allergies were last updated in [employer].
Home Medications with original date entered in [employer]
Allergy/Medication List:
Allergies
Allergy/AdvReac Type Severity Reaction Status Date / Time
Latex, Natural Rubber Allergy Unknown Verified 08/08/24 13:03
Penicillins Allergy Unknown, Verified 08/08/24 15:55
tolerated
certriaxone
in 2023
prochlorperazine Allergy Unknown Verified 08/08/24 13:03
[From Compazine]
Sulfa (Sulfonamide Allergy Unknown Verified 08/08/24 13:03
Antibiotics)
sumatriptan [From Imitrex] Allergy Unknown Verified 08/08/24 13:03
Home Medications
Patient Own Insulin Pump 0 units SC .VIA HUMALOG Diabetes 05/01/24
aspirin 81 mg tablet,delayed release 81 mg PO DAILY Blood Clot Prevention/Tx 05/01/24
diltiazem HCl 180 mg capsule,24 hr,extended release 180 mg PO DAILY Blood Pressure 05/01/24
exemestane 25 mg tablet 25 mg PO DAILY Hormonal Agent 05/01/24
pantoprazole 40 mg tablet,delayed release (Protonix) 40 mg PO DAILY Gastrointestinal Issue 05/01/24
prednisone 5 mg tablet 5 mg PO DAILY rheumatoid arthritis 05/01/24
rosuvastatin 5 mg tablet (Crestor) 5 mg PO DAILY High Cholesterol 05/01/24
tirzepatide 5 mg/0.5 mL subcutaneous pen injector (Mounjaro) 5 mg SC FR Diabetes 05/01/24
upadacitinib 15 mg tablet,extended release 24 hr (Rinvoq) 15 mg PO DAILY Rheumatoid arthritis 05/01/24
cyanocobalamin (vitamin B-12) 1,000 mcg/mL injection solution 1,000 mcg SC QMONTH 08/08/24
escitalopram oxalate 10 mg tablet 10 mg PO DAILY 08/08/24
ibuprofen 200 mg tablet 600 mg PO Q6HPRN PRN mild pain/fever 08/08/24
therapeutic multivitamin 1 tab PO DAILY 08/08/24
Review of Systems
-
Constitutional: Reports Fever and Chills
EENT: Reports No Symptoms
Respiratory: Reports No Symptoms
Cardiac: Reports No Symptoms
Abdomen/GI: Reports No Symptoms
: Reports No Symptoms
Musculoskeletal: Reports No Symptoms
Skin: Reports No Symptoms
Neurological: Reports No Symptoms
Endocrine: Reports No Symptoms
Hematologic/Lymphatic: Reports No Symptoms
Psych: Reports No Symptoms
Physical Exam
Vital Signs
Vital Signs
Temp Pulse Resp BP Pulse Ox
101 F H 88 19 145/79 94
12/04/24 15:48 12/04/24 16:30 12/04/24 16:30 12/04/24 16:24 12/04/24 16:30
Physical Exam
General: Well Developed, Well Nourished and No Apparent Distress
HEENT: NormoCephalic, Moist mucous membranes and Atraumatic
Respiratory: Clear
Cardiac: S1/S2 and Regular Rhythm; No Murmur or Rub
GI: Soft, Non Tender, Non Distended and Normal Bowel Sounds; No Organomegaly
Rectal: Deferred by Provider
Musculoskeletal: No Clubbing, No Cyanosis and No Edema
Skin: No Rash
Neuro: Nonfocal/grossly intact
Laboratory Results
-
12/04/24 13:58
12/04/24 13:58
Laboratory Results
Lactic Acid 1.5 mmol/L (0.7-2.0) 12/04/24 16:05
Total Bilirubin 2.0 mg/dl (0.2-1.3) H 12/04/24 13:58
AST 44 U/L (14-36) H 12/04/24 13:58
ALT 30 U/L (0-35) 12/04/24 13:58
Alkaline Phosphatase 52 U/L (38-126) 12/04/24 13:58
Data Reviewed
-
Diagnostic Radiology: Report Reviewed by me
Medical Tests (Nuc Med, Echo, EKG etc): Report Reviewed by me
Lab Data: Labs Reviewed by me
Impression/Plan
-
Vital Signs
Temp Pulse Resp BP Pulse Ox
101 F H 88 19 145/79 94
12/04/24 15:48 12/04/24 16:30 12/04/24 16:30 12/04/24 16:24 12/04/24 16:30
Admission Labs
08/10/24 12/04/24 12/04/24
06:07 13:58 16:05
WBC 2.3 L* 3.4 L
Hgb 7.4 L 9.4 L
Plt Count 106 L 94 L
Sodium 131 L
Creatinine 0.7
eGFR > 60.00
Glucose 189 H
Lactic Acid 1.5
Total Bilirubin 1.5 H 2.0 H
AST 44 H
ALT 30
Alkaline Phosphatase 52
12/04/24
13:58
SARS-CoV-2 Antigen Negative
CXR : No acute process
Last hospitalist admission: 08/08/24 - 08/10/24
Principal Discharge diagnosis : SIRS on admission; unclear source, pancytopenia, anion gap metabolic acidosis
Chronic Discharge diagnosis : pancytopenia, rheumatoid arthritis, anemia of chronic disease, history of lupus, history of autoimmune hemolytic anemia, history of intermittent hepatitis, breast cancer status post bilateral mastectomy,
anxiety/restlessness, type 2 diabetes, essential hypertension, history of hyponatremia
ASSESSMENT & PLAN
Pending Rx reconciliation
Fever with chills and chr leukopenia : Infectious vs non infectious ( RA, Lupus, hepatitis , drug fever)
- check ESR, CRP
- NEG CXR
- NEG COVID-negative
- Check BCx
- No prior MRSA screen at [facility]
- empiric IV CFP
- Tylenol PRN
- ID consulted
HX Rheumatoid arthritis
HX lupus erythematosus
- She is no longer on Rinvoq since started on Rituxan
- Continue chr prednisone
HX autoimmune hemolytic anemia/Acute on Chronic Anemia
- associated chronically elevated TB
- no signs of hemolysis
- Transfuse If Hgb < 7
HX autoimmune hepatitis
HX Breast cancer status post bilateral mastectomy
- Continue exemestane
HX Anxiety/restlessness
- stable
- Continue Lexapro
IDDM
- cont. insulin pump
Essential hypertension
- Continue diltiazem
HX hyponatremia
DVT Px: SQH
Full code
IP MS
[2024-12-04 17:40] LABS: Erythrocyte Sed Rate 40 mm/hour (0-20)
[2024-12-04] MEDS: MAXIPIME 2000 MG IV (17:43)
[2024-12-04 17:45] LABS: Urine Albumin 1+ (Neg - Trace); Urine Bilirubin Negative (Negative); Urine Character Clear (Clear); Urine Color Yellow; Urine Glucose Negative (Negative); Urine Ketone 1+ (Negative); Urine Leukocyte Negative (Negative); Urine Nitrite Negative (Negative); Urine Occult Blood 1+ (Negative); Urine Urobilinogen 1+ (Neg - 1+); Urine pH 6.5 (5.0-9.0)
[2024-12-04 17:51] LABS: Urine Bacteria Few (Negative)
[2024-12-04 17:52] LABS: Urine White Cell 0-2 /HPF (0-5)
[2024-12-04] MEDS: PATIENT'S OWN INSULIN PUMP 5.24 UNITS SC (20:00)
--- NOTE | 2024-12-04 20:00 | PTCARENOTE ---
Temp @ 1900 102.2 Temp now 98.9 (registering the same on 2 different devices). No fever media specialist given since 1600. Pt states wide range of temps at home as well within short period of time and not necessarily related to antipyretic.
[2024-12-04 20:05] LABS: Glucose - Point of Care 129 mg/dl (70-99)
[2024-12-04] MEDS: FLUSH (NSS) 2 FLUSH IV (20:20)
[2024-12-04] MEDS: MOTRIN 600 MG PO (21:18)
[2024-12-04 22:14] LABS: Glucose - Point of Care 139 mg/dl (70-99)
[2024-12-05] MEDS: MAXIPIME 1000 MG IV ×2 (02:04→09:42)
[2024-12-05] MEDS: STERILE WATER FOR INJECTION 10 ML IV ×3 (02:06→14:11)
[2024-12-05 06:00] VITALS: BMI 22.2
[2024-12-05 07:17] LABS: Glucose - Point of Care 127 mg/dl (70-99)
[2024-12-05 07:25] LABS: Hemoglobin 8.8 g/dL (12.0-16.0); Mean Corp Hgb Conc. 35.2 g/dL (33.0-37.0); Mean Corpuscular Hgb 30.4 pg (27.0-31.0); Mean Corpuscular Volume 86.5 fL (81.0-99.0); Mean Platelet Volume 11.1 fL (7.4-10.4); Platelet Count 70 10^3/uL (130-400); Red Blood Cell Count 2.89 10^6/uL (4.20-5.40); Red Cell Dist. Width 15.9 % (11.5-14.5)
[2024-12-05 07:45] LABS: Blood Urea Nitrogen 12 mg/dl (7-17); Calcium 8.9 mg/dl (8.4-10.2); Carbon Dioxide 23 mmol/L (22-30); Chloride 109 mmol/L (98-107); Estimated Creatinine Clearance 67 ml/min; Glucose 104 mg/dl (70-99); Potassium 3.9 mmol/L (3.5-5.1); Sodium 139 mmol/L (135-145); eGFR > 60.00
[2024-12-05 07:47] VITALS: BP 124/72
--- NOTE | 2024-12-05 07:47 | W.PN.HOSP.TC ---
Documented by User: Irma Sanchez MD, Resident 12/05/24 14:00
Today's Communication/Plan
-
;/
Assessment / Plan
Assessment / Plan
Assessment/plan
#SIRS-unclear source
-Chest x-ray negative
-Flu and COVID-negative
-blood cultures pending
-Abx with cefepime
-ID consulted
-Per patient, bone marrow biopsy done in May 2024, which was unremarkable
# Pancytopenia
-Likely from ongoing medication use.
-Continue to monitor
# Rheumatoid arthritis
-Hold outpatient Rituxan
# History of lupus erythematosus
-Continue prednisone
#History of autoimmune hemolytic anemia/Acute on Chronic Anemia
-no signs of hemolysis
-Transfuse if hemoglobin less than 7
#History of autoimmune hepatitis
#Breast cancer status post bilateral mastectomy
-Continue exemestane
#Anxiety/restlessness
-Continue Lexapro
#Type 2 diabetes
-Continue insulin pump
-DM MANAGER TERMINAL consulted
#Essential hypertension
-Continue diltiazem
#History of hyponatremia
Full code
DVT prophylaxis�heparin
Anticipated Discharge: > 48 hours
Subjective/Interval History
-
Date of Service: December 05, 2024
Objective Data
-
Labs:
Laboratory Results
12/05/24
06:17
WBC 2.0 L*
Hgb 8.8 L
Hct 25.0 L
Plt Count 70 L D
Sodium 139 D
Potassium 3.9
Chloride 109 H
Carbon Dioxide 23
BUN 12
Creatinine 0.8
Glucose 104 H
Calcium 8.9
Vital Signs:
Vital Signs
Temp Pulse Resp BP Pulse Ox
98.5 F 86 16 124/72 96
12/05/24 07:47 12/05/24 07:47 12/05/24 07:47 12/05/24 07:47 12/05/24 07:47
I&O
12/04/24 12/05/24 12/06/24
06:59 06:59 06:59
Intake Total 1200 / 1200
Balance 1200 / 1200
Review of Systems
-
All other systems: Reviewed and negative (Except as documented)
Physical Exam
-
General: Well Developed, Well Nourished, No Apparent Distress and Conversant
HEENT: Normocephalic and Atraumatic
Respiratory: Clear to Auscultation
Cardiac: Regular Rhythm and S1/S2
GI: Soft, Nontender and Nondistended
Musculoskeletal: No Clubbing, No Cyanosis and No Edema
Skin: Warm and Dry
Neuro: Awake, Alert and Oriented
Hematologic / Lymphatic: No Lymphadenopathy
Psych: Calm

Documented by User: Herber Fountain DO 12/05/24 14:22
Subjective/Interval History
-
Date of Service: December 05, 2024
Seen and examined at the bedside
[2024-12-05] MEDS: ASPIR LOW (ENTERIC COATED) 81 MG PO (08:37)
[2024-12-05] MEDS: DELTASONE 5 MG PO (08:37)
[2024-12-05] MEDS: CARDIZEM CD 180 MG PO (08:37)
[2024-12-05] MEDS: PROTONIX 40 MG PO (08:37)
[2024-12-05] MEDS: LEXAPRO 10 MG PO (08:37)
[2024-12-05] MEDS: CRESTOR 5 MG PO (08:37)
[2024-12-05] MEDS: AROMASIN 25 MG PO (08:37)
[2024-12-05 08:48] LABS: % Basophils 0.5 % (0-2); % Eosinophils 0.5 % (0-6); % Immature Granulocytes 0.5 % (0-0.5); % Lymphocytes 24.7 % (20.5-51.1); % Monocytes 12.6 % (1.7-9.3); % Neutrophils 61.2 % (42.2-75.2); Absolute Lymphocytes 0.5 10^3/uL (1.2-3.4); Absolute Monocytes 0.3 10^3/uL (0.1-0.6); Absolute Neutrophils 1.2 10^3/uL (1.4-6.5); Nucleated Red Blood Cells % 0 %
[2024-12-05] MEDS: PATIENT'S OWN INSULIN PUMP 8.13 UNITS SC (09:20)
--- NOTE | 2024-12-05 09:28 | PN.DE.MGMTRT ---
Insulin Management
- -
12/05/2024: Consult for insulin pump management
53 year old female with significant hx of chronic steroid use, steroid induced diabetes in 2006 due to Autoimmune conditions including, RA, Lupus, autoimmune hemolytic anemia, autoimmune hepatitis and breast cancer. Pt presented to the ED for
evaluation of mental status change / anxiety. Pt follows with [facility] for routine diabetes mgt. Prior to admission was using the tslim pump with DexCom, Humalog insulin and TruSteel insulin infusion set. A1C 4.9.
Diabetes consult requested today for mgt of insulin pump. A1C 5.2% (NOTE hx of hemolytic anemia), Cr 0.8, eGFR>60
Patient is awake alert and oriented, sitting up in bed, offers no complaints, able to discuss diabetes
Glucose has been stable and in range since admission, FBG 104(V), 127 POC this AM.
Current pump settings
Basal Carb ratio correction Target
12am .7 3 25 110
3am 1 3 25 110
5:30am 1.2 3 25 110
1pm 1.2 3 25 110
4:30PM 1.3 3 25 110
9pm 1.2 3 25 110
24 hrs total insulin 27.25 units
Pt is fully capable of managing insulin pump and adm bolus at meals.
Will make no changes to current pump settings
Discussed above plan with pt's Nurse and instructed to have bedside work sheet available for pt to document insulin adm.
Diabetes History
- -
Type of Diabetes: 2 requiring insulin
Pre-Admission Diabetes Regimen
12/04/24 12/05/24
13:58 06:17
Creatinine 0.7 0.8
Insulin Pump Settings
IP Diabetes Regimen
12/04/24 12/04/24 12/04/24
13:58 20:04 22:14
Glucose 189 H
POC Glucose 129 H 139 H
12/05/24 12/05/24
06:17 07:15
Glucose 104 H
POC Glucose 127 H
Patient Education
[2024-12-05 10:34] LABS: Glycohemoglobin (HgbA1c) 5.2 % (4.0-5.6)
--- NOTE | 2024-12-05 10:59 | CON.ID ---
Consultation
-
Date/Time Consultation Requested: December 05, 2024 0831
Date/Time Consultation Performed: December 05, 2024 1100
Requesting Provider: Dr. Sanchez
Performing Provider: Dr. Christal Landaverde
Reason for Consultation: Headache, fever, chills
Chief Complaint / Past History
Chief Complaint
Fevers
History of Present Illness
53-year-old female with significant history of RA/lupus on low dose prednisone , hydrochloroquine, and Rituxan (first dose 11/24), hx breast cancer, DM 2 who presents to the hospital on 12/04 for fevers and chills. Patient with history of FUO in
May 2024 and July 2023 with negative infectious disease workup. Fever thought to be rheumatological source. She was on Rinvoq previously then changed to Benlysta which was discontinued due to worsening pancytopenia. On November 24, she
received her first dose of rituximab. She tolerated the infusion. Yesterday she developed acute onset of fevers and chills. She also developed significant joint pains of her elbows, hands, knees, and hips. Positive headache when febrile. No
photophobia or neck stiffness. No sinus congestion, rhinorrhea, or sore throat. No cough or shortness of breath. No urinary symptoms. No rash. No nausea vomiting abdominal pain. She developed diarrhea while on cefepime and requests antibiotic
be changed. No ill contacts. She is vigilant about insect prevention. She does not garden nor go outside much.
Past History
Additional Past Medical History:
Rheumatoid arthritis/SLE on low-dose prednisone, Rituxan (started 11/24/24)
Pancytopenia, bone marrow bx neg malignancy
History of autoimmune hemolytic anemia
History of autoimmune hepatitis
Breast cancer s/p double mastectomy
DM
Hypertension
Anxiety
Anemia of chronic disease
Additional Past Surgical History:
Hysterectomy
Allergy History:
Latex, Natural Rubber Allergy (Verified 08/08/24 13:03)
Unknown
Penicillins Allergy (Verified 08/08/24 15:55)
Unknown, tolerated certriaxone in 2023
prochlorperazine (From Compazine) Allergy (Verified 08/08/24 13:03)
Unknown
Sulfa (Sulfonamide Antibiotics) Allergy (Verified 08/08/24 13:03)
Unknown
sumatriptan (From Imitrex) Allergy (Verified 08/08/24 13:03)
Unknown
Medications Reviewed: Yes
Current Antibiotics:
Cefepime
Social History
Tobacco: Non-Smoker
Alcohol: None
Drug: None
Personal:
Living: With Family
Employment: Employed
Family History
Family History: Not Pertinent
Review of Systems
Review of Systems
General: Fever and Chills; Negative Change in Appetite
HEENT: Headache (resolved); Negative Stiff Neck, Sinus Problems or Pharyngitis
Cardiovascular: Negative Chest Pain, Dyspnea or Edema
Respiratory: Negative Dyspnea or Cough
Gasteroenterology: Negative Nausea or Vomiting
Genital / Urological: Negative Dysuria or Flank Pain
Endocrine: Negative Weakness
Musculoskeletal: Arthralgias
Skin / Hair / Nails: Negative Rash
Neurological: Negative Dizziness
All systems: All other systems were reviewed and were negative
Vital Signs
Temp Pulse Resp BP Pulse Ox
100.2 F 86 16 124/72 96
12/05/24 09:46 12/05/24 08:37 12/05/24 07:47 12/05/24 08:37 12/05/24 07:47
Selected Entries
12/04/24
19:00
Temp 102.2 F H
Physical Exam
Physical Exam
Constitutional: No Acute Distress, Comfortable and Non-toxic
Head: Other (No frontal or max or sinus tenderness.)
Eyes: No Conjunctival Hemorrhage and Sclera Anicteric
Pharynx: Benign
Oral: No Thrush
Cardiovascular: Regular Rate and S1/S2
Pulmonary: Clear
Gastrointestinal: Soft, Non Tender, Non Distended and Normal Bowel Sounds
Genito-Urinary: Negative Suprapubic Tenderness or CVA Tenderness
Extremities: Negative Edema
Musculoskeletal: Negative Spinal Tenderness
Skin: Negative Rash
Neurological: AO x 3
Lab / Diagnostic Study Results
12/05/24 06:17
12/05/24 06:17
Abs Immat Gran (auto) 0.0 10^3/uL (0-0.05) 12/05/24 06:17
Absolute Neuts (auto) 1.2 10^3/uL (1.4-6.5) L 12/05/24 06:17
Absolute Lymphs (auto) 0.5 10^3/uL (1.2-3.4) L 12/05/24 06:17
Absolute Monos (auto) 0.3 10^3/uL (0.1-0.6) 12/05/24 06:17
Absolute Basos (auto) 0.0 10^3/uL (0-0.2) 12/05/24 06:17
Immature Gran % 0.5 % (0-0.5) 12/05/24 06:17
Neutrophils % 61.2 % (42.2-75.2) 12/05/24 06:17
Lymphocytes % 24.7 % (20.5-51.1) 12/05/24 06:17
Monocytes % 12.6 % (1.7-9.3) H 12/05/24 06:17
Eosinophils % 0.5 % (0-6) 12/05/24 06:17
Basophils % 0.5 % (0-2) 12/05/24 06:17
ESR Cancelled 12/04/24 17:24
Lactic Acid 1.5 mmol/L (0.7-2.0) 12/04/24 16:05
C-Reactive Protein Cancelled 12/04/24 17:24
Ur Squamous Epith Cells 6-10 /LPF (Few) 12/04/24 17:36
Microbiology Results
Micro:
12/04/24 17:29 Blood Culture - Pending
Blood/Venous
12/04/24 16:05 Blood Culture - Pending
Blood/Venous
12/04/24 13:58 Influenza Types A & B ([facility]) - Final
Nasal Swab Negative for Influenza A & B, NAAT
Negative results must be combined with clinical observations
and patient history.
Nucleic Acid Amplification test (NAAT)performed on the
[employer] platform.
CXR: No acute cardiopulmonary process.
Assessment / Plan
# Fever
# Abx-associated diarrhea
# Rheumatoid arthritis/SLE, received first dose of Rituxan November 24
# Chronic pancytopenia
- CXR neg, UA neg, COVID/Flu neg.
- Patient without focal symptoms except for worsening joint pains.
- Suspect fever from recent first dose Rituxan vs from RA/SLE flare.
-De-escalate cefepime to ceftriaxone.
- Follow blood cx's. If neg, dc abx.
- Trend temps.
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
Rheumatoid arthritis/SLE on low-dose prednisone, Rituxan (started 11/24/24)
Pancytopenia, bone marrow bx neg malignancy
History of autoimmune hemolytic anemia
History of autoimmune hepatitis
Breast cancer s/p double mastectomy
DM
Hypertension
Anxiety
Anemia of chronic disease
[2024-12-05 11:33] LABS: Glucose - Point of Care 105 mg/dl (70-99)
[2024-12-05] MEDS: PATIENT'S OWN INSULIN PUMP 17.71 UNITS SC (12:52)
[2024-12-05] MEDS: NSS 1000 IV (12:53)
[2024-12-05] MEDS: ROCEPHIN 1000 MG IV (14:11)
[2024-12-05] MEDS: VISBIOME 2 CAP PO (14:11)
[2024-12-05 15:21] VITALS: BP 126/82
--- NOTE | 2024-12-05 16:48 | CM ---
Alert awake oriented patient who lives with her Lauro in a 2 story home with 1 steps to enter and 10 steps to bed/bathroom. She is independent in activates of daily living.She does drive .Offered VN she declined need.
No VN in past . No SNF hx
Pharmacy [facility]
PCP Dr Gustafson
PLAN Home with no needs
[2024-12-05 16:59] LABS: Glucose - Point of Care 118 mg/dl (70-99)
[2024-12-05] MEDS: PATIENT'S OWN INSULIN PUMP 6.01 UNITS SC (17:28)
[2024-12-05] MEDS: MOTRIN 600 MG PO (19:59)
[2024-12-05 21:42] LABS: Glucose - Point of Care 136 mg/dl (70-99)
[2024-12-05] MEDS: PATIENT'S OWN INSULIN PUMP 1 UNITS SC (22:00)
[2024-12-05] MEDS: PATIENT'S OWN INSULIN PUMP SC (22:00)
[2024-12-05 23:45] VITALS: BP 143/83
[2024-12-06 06:00] VITALS: BMI 22.0
[2024-12-06 06:54] LABS: Hematocrit 24.8 % (37.0-47.0); Hemoglobin 8.6 g/dL (12.0-16.0); Mean Corp Hgb Conc. 34.7 g/dL (33.0-37.0); Mean Corpuscular Hgb 30.3 pg (27.0-31.0); Mean Corpuscular Volume 87.3 fL (81.0-99.0); Mean Platelet Volume 11.4 fL (7.4-10.4); Platelet Count 65 10^3/uL (130-400); Red Blood Cell Count 2.84 10^6/uL (4.20-5.40); Red Cell Dist. Width 15.9 % (11.5-14.5); White Blood Cell Count 1.8 10^3/uL (4.8-10.8)
--- NOTE | 2024-12-06 07:06 | W.PN.HOSP.TC ---
Today's Communication/Plan
-
;/
Assessment / Plan
Assessment / Plan
Assessment/plan
#SIRS-unclear source
-Chest x-ray negative
-Flu and COVID-negative
-blood cultures preliminary negative
-ID consulted, input appreciated
-Narrow antibiotics to ceftriaxone. DC cefepime
-If cultures continue to remain negative, DC antibiotics
-Fever, chills likely due to receiving first dose of rituximab on November 24
-Per patient, bone marrow biopsy done in May 2024, which was unremarkable
-CT chest abdomen pelvis- No significant acute abnormality identified in the chest, abdomen or pelvis, as described above. Splenomegaly.
# Pancytopenia
-Likely from medication use.
-Continue to monitor
# Rheumatoid arthritis
-Hold outpatient Rituxan
# History of lupus erythematosus
-Continue prednisone
#History of autoimmune hemolytic anemia/Acute on Chronic Anemia
-no signs of hemolysis
-Transfuse if hemoglobin less than 7
#History of autoimmune hepatitis
#Breast cancer status post bilateral mastectomy
-Continue exemestane
#Anxiety/restlessness
-Continue Lexapro
#Type 2 diabetes
-Continue insulin pump
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
#Essential hypertension
-Continue diltiazem
#History of hyponatremia
Full code
DVT prophylaxis�SCDs
Anticipated Discharge: > 48 hours
Subjective/Interval History
-
Patient seen and examined at bedside. Reports symptoms of joint pain improving. Denies chills overnight. States she is interested in going home
Objective Data
-
Labs:
Laboratory Results
12/06/24
06:00
WBC 1.8 L*
Hgb 8.6 L
Hct 24.8 L
Plt Count 65 L
Sodium Pending
Potassium Pending
Chloride Pending
Carbon Dioxide Pending
BUN Pending
Creatinine Pending
Glucose Pending
Calcium Pending
Vital Signs:
Vital Signs
Temp Pulse Resp BP Pulse Ox
98.7 F 86 16 143/83 96
12/05/24 23:45 12/05/24 23:45 12/05/24 23:45 12/05/24 23:45 12/05/24 23:45
I&O
12/05/24 12/06/24 12/07/24
06:59 06:59 06:59
Intake Total 1200 / 1200 840 / 840
Balance 1200 / 1200 840 / 840
Review of Systems
-
All other systems: Reviewed and negative (Except as documented)
Physical Exam
-
General: Well Developed, Well Nourished, No Apparent Distress and Conversant
HEENT: Normocephalic and Atraumatic
Respiratory: Clear to Auscultation
Cardiac: Regular Rhythm and S1/S2
GI: Soft, Nontender and Nondistended
Musculoskeletal: No Clubbing, No Cyanosis and No Edema
Skin: Warm and Dry
Neuro: Awake, Alert and Oriented
Hematologic / Lymphatic: No Lymphadenopathy
Psych: Calm
--- NOTE | 2024-12-06 07:10 | PN.DE.MGMTRT ---
Insulin Management
- -
12/06/2024: Consult for insulin pump management follow up
Patient admitted with fever. PMH chronic steroid use, steroid induced diabetes in 2006 due to Autoimmune conditions including, RA, Lupus, autoimmune hemolytic anemia, autoimmune hepatitis and breast cancer.
Pt follows with [facility]- [facility] for routine diabetes mgt. Prior to admission was using the tslim pump with DexCom, Humalog insulin and TruSteel insulin infusion set. A1C 4.9.
A1C 5.2% (NOTE hx of hemolytic anemia), Cr 0.8, eGFR>60
Patient is awake alert and oriented, sitting up in bed, offers no complaints, able to discuss diabetes
Glucose has been stable and in range since admission, 104 to 136.
Current pump settings
Basal Carb ratio correction Target
12am .7 3 25 110
3am 1 3 25 110
5:30am 1.2 3 25 110
1pm 1.2 3 25 110
4:30PM 1.3 3 25 110
9pm 1.2 3 25 110
24 hrs total insulin 27.25 units
Pt is fully capable of managing insulin pump and adm bolus at meals.
Will make no changes to current pump settings
Discussed above plan with pt's Nurse and instructed to have bedside work sheet available for pt to document insulin adm.
Diabetes History
- -
Type of Diabetes: 2 requiring insulin
Pre-Admission Diabetes Regimen
12/05/24
06:17
Creatinine 0.8
Lab Results
Hemoglobin A1c 5.2 % (4.0-5.6) 12/05/24 06:17
Insulin Pump Settings
IP Diabetes Regimen
12/05/24 12/05/24 12/05/24
06:17 07:15 11:32
Glucose 104 H
POC Glucose 127 H 105 H
12/05/24 12/05/24
16:58 21:40
Glucose
POC Glucose 118 H 136 H
Meal type: Dinner
Meal type: Lunch
Meal type: Breakfast
Amount consumed: 100%
Amount consumed: 100%
Amount consumed: 100%
Patient Education
[2024-12-06 07:25] VITALS: BP 142/82
[2024-12-06 07:33] LABS: Glucose - Point of Care 139 mg/dl (70-99)
[2024-12-06 07:35] LABS: % Basophils 0.5 % (0-2); % Eosinophils 0.5 % (0-6); % Immature Granulocytes 0.5 % (0-0.5); % Lymphocytes 21.2 % (20.5-51.1); % Neutrophils 64.3 % (42.2-75.2); Absolute Lymphocytes 0.4 10^3/uL (1.2-3.4); Absolute Monocytes 0.2 10^3/uL (0.1-0.6); Absolute Neutrophils 1.2 10^3/uL (1.4-6.5); Nucleated Red Blood Cells % 0 %
[2024-12-06 07:55] LABS: Blood Urea Nitrogen 11 mg/dl (7-17); Calcium 8.9 mg/dl (8.4-10.2); Carbon Dioxide 22 mmol/L (22-30); Chloride 111 mmol/L (98-107); Estimated Creatinine Clearance 76 ml/min; Glucose 107 mg/dl (70-99); Potassium 3.9 mmol/L (3.5-5.1); Sodium 139 mmol/L (135-145); eGFR > 60.00
[2024-12-06] MEDS: PROTONIX 40 MG PO (08:28)
[2024-12-06] MEDS: CRESTOR 5 MG PO (08:28)
[2024-12-06] MEDS: CARDIZEM CD 180 MG PO (08:28)
[2024-12-06] MEDS: ASPIR LOW (ENTERIC COATED) 81 MG PO (08:29)
[2024-12-06] MEDS: LEXAPRO 10 MG PO (08:29)
[2024-12-06] MEDS: DELTASONE 5 MG PO (08:31)
[2024-12-06] MEDS: AROMASIN 25 MG PO (08:31)
[2024-12-06] MEDS: VISBIOME 2 CAP PO (08:32)
[2024-12-06 11:03] VITALS: BP 142/80
[2024-12-06] MEDS: PATIENT'S OWN INSULIN PUMP SC (11:38)
[2024-12-06 11:47] LABS: Glucose - Point of Care 165 mg/dl (70-99)
--- NOTE | 2024-12-06 11:58 | W.PN.ID1 ---
Date of Service
Date of Service: December 06, 2024
Today's Communication
- DC abx.
- Can dc home from ID standpoint.
- Follow-up with Rheum.
Assessment / Plan
# Fever resolved
# Abx-associated diarrhea resolved
# Rheumatoid arthritis/SLE, received first dose of Rituxan November 24
# Chronic pancytopenia
- CXR neg, UA neg, COVID/Flu neg.
-Blood cx's x2 neg to date
- CT c/a/p: no acute abnormality. +Splenomegaly, present on 07/[address]
- Suspect fever from recent first dose Rituxan vs from RA/SLE flare.
- DC abx.
- Can dc home from ID standpoint.
- Follow-up with Rheum.
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
Rheumatoid arthritis/SLE on low-dose prednisone, Rituxan (started 11/24/24)
Pancytopenia, bone marrow bx neg malignancy
History of autoimmune hemolytic anemia
History of autoimmune hepatitis
Breast cancer s/p double mastectomy
DM
Hypertension
Anxiety
Anemia of chronic disease
Chief Complaint
-: Fever
Subjective / Review of Systems
Overall feels improved today.
No further diarrhea.
Vital Signs / Physical Exam
Vital Signs
Vital Signs
Temp Pulse Resp BP Pulse Ox
99.1 F 102 18 142/80 95
12/06/24 11:03 12/06/24 11:03 12/06/24 11:03 12/06/24 11:03 12/06/24 11:03
Physical Exam
Constitutional: No Acute Distress and Comfortable
Eyes: No Conjunctival Hemorrhage and Sclera Anicteric
Cardiovascular: Regular Rate and S1/S2
Pulmonary: Clear
Gastrointestinal: Soft, Non Tender, Non Distended and Normal Bowel Sounds
Genito-Urinary: Negative CVA Tenderness
Extremities: Negative Edema
Neurological: AO x 3
Objective Data
Lab Data
Lab Results
12/06/24 06:00
12/06/24 06:00
ESR Cancelled 12/04/24 17:24
Estimated Creat Clear 76 ml/min 12/06/24 06:00
Lactic Acid 1.5 mmol/L (0.7-2.0) 12/04/24 16:05
Total Bilirubin 2.0 mg/dl (0.2-1.3) H 12/04/24 13:58
AST 44 U/L (14-36) H 12/04/24 13:58
ALT 30 U/L (0-35) 12/04/24 13:58
Alkaline Phosphatase 52 U/L (38-126) 12/04/24 13:58
C-Reactive Protein Cancelled 12/04/24 17:24
Most recent labs reviewed.
Micro Results:
12/04/24 17:29 Blood Culture - Preliminary
Blood/Venous No Growth in 24 hours- Final report to follow
12/04/24 16:05 Blood Culture - Preliminary
Blood/Venous No Growth in 24 hours- Final report to follow
12/04/24 13:58 Influenza Types A & B (YULIANA) - Final
Nasal Swab Negative for Influenza A & B, NAAT
Negative results must be combined with clinical observations
and patient history.
Nucleic Acid Amplification test (NAAT)performed on the
[employer] platform.
CXR: No acute cardiopulmonary process.
CT chest/abd/pelvis: No significant acute abnormality identified in the chest, abdomen or pelvis, as described above. Splenomegaly.
Care Review
Plan reviewed with: Physician (Dr. Fountain)
--- NOTE | 2024-12-06 12:54 | W.DCSUMMARY ---
Documented by User: Irma Sanchez MD, Resident 12/06/24 13:22
Discharge Summary
Discharge Data
Date of Admission: 12/04/24
Date of Discharge: 12/06/24
-
Pending Results: No
Hospital Course
Brief Hospital course; 53-year-old female past medical history of rheumatoid arthritis on Rituxan, lupus, autoimmune hemolytic anemia, autoimmune hepatitis, breast cancer status post mastectomy bilaterally, anemia of chronic disease, anxiety,
diabetes, hypertension, hyponatremia who presented to ER 12/04 with onset of fever and shaking chills. She reports max temperature of 102 �F prior to presentation. In addition patient reported headache and joint pain mostly in the hands and
elbow. Pertinent to the patient's history, patient has presented with 2 similar episodes in the past (April 2024 and July 2024) without any source. On presentation to the ED, patient with temperature 101 �F, BP 130/85, pulse 102, O2 sat 98%
on room air. Patient was evaluated with a chest x-ray which was unremarkable. Flu and COVID testing were negative. Urinalysis was negative. Blood cultures have been negative to date. She was initially started on cefepime for broad coverage. ID
was consulted and antibiotics was narrowed down to ceftriaxone. Cultures remained negative after 48 hours prompting ID to discontinue antibiotics. Also pertinent to her history, she received her first dose of rituximab on November 24. It was thought
that her fever and chills are likely due to receiving this medication versus from a rheumatoid arthritis/SLE flare. She was evaluated with a CT chest, abdomen, pelvis with no acute abnormality, also splenomegaly present, similar to her CT chest on
07/2024. Patient was afebrile for more than 24 hours prior to discharge. She will be discharged home today to follow-up with her outpatient fiscal specialist and PCP.
Discharge Plan
-
Patient Disposition: Home (Routine Discharge)
Discharge Diagnosis/Procedures: Fever
Rheumatoid arthritis/SLE, received first dose of Rituxan November 24
Chronic pancytopenia
Condition: Fair
Blood Work: cbc in 3days. receive script from PCP
Referrals:
Moshe Gustafson MD [Family Provider, Internal Medicine] - in less than 1 week
Prescriptions:
Continued
diltiazem HCl 180 mg Capsule,Extended Release 24 Hr
180 mg PO DAILY
prednisone 5 mg Tablet
5 mg PO DAILY
aspirin 81 mg Tablet,Delayed Release (Dr/Ec)
81 mg PO DAILY
exemestane 25 mg Tablet
25 mg PO DAILY
pantoprazole [Protonix] 40 mg Tablet,Delayed Release (Dr/Ec)
40 mg PO DAILY
rosuvastatin [Crestor] 5 mg Tablet
5 mg PO DAILY
Mounjaro 5 mg/0.5 mL Pen Injector
5 mg SC FR
Patient Own Insulin Pump
0 units SC .VIA HUMALOG
therapeutic multivitamin Tablet
1 tab PO DAILY
cyanocobalamin (vitamin B-12) 1,000 mcg/mL Solution
1,000 mcg SC QMONTH
ibuprofen 200 mg Tablet
600 mg PO Q6HPRN PRN (Reason: mild pain/fever)
escitalopram oxalate 10 mg Tablet
10 mg PO DAILY
hydroxychloroquine [Plaquenil] 200 mg Tablet
200 mg PO DAILY
Discharge Orders:
Discharge Patient (As Directed); Ordered 12/06/24
Ordered By: Irma Sanchez
Discharge Date and Time
Discharge Date/Time: 12/06/24 14:08
Print Language: DANISH

Documented by User: Herber Fountain DO 12/06/24 14:16
Discharge Summary
Discharge Data
Date of Admission: 12/04/24
Date of Discharge: 12/06/24
Total time spent discharging patient (in min): 35
Discharge Plan
-
Patient Disposition: Home (Routine Discharge)
Discharge Diagnosis/Procedures: Fever
Rheumatoid arthritis/SLE, received first dose of Rituxan November 24
Chronic pancytopenia
Condition: Fair
Blood Work: cbc in 3days. receive script from PCP
Referrals:
Moshe Gustafson MD [Family Provider, Internal Medicine] - in less than 1 week
Prescriptions:
Continued
diltiazem HCl 180 mg Capsule,Extended Release 24 Hr
180 mg PO DAILY
prednisone 5 mg Tablet
5 mg PO DAILY
aspirin 81 mg Tablet,Delayed Release (Dr/Ec)
81 mg PO DAILY
exemestane 25 mg Tablet
25 mg PO DAILY
pantoprazole [Protonix] 40 mg Tablet,Delayed Release (Dr/Ec)
40 mg PO DAILY
rosuvastatin [Crestor] 5 mg Tablet
5 mg PO DAILY
Mounjaro 5 mg/0.5 mL Pen Injector
5 mg SC FR
Patient Own Insulin Pump
0 units SC .VIA HUMALOG
therapeutic multivitamin Tablet
1 tab PO DAILY
cyanocobalamin (vitamin B-12) 1,000 mcg/mL Solution
1,000 mcg SC QMONTH
ibuprofen 200 mg Tablet
600 mg PO Q6HPRN PRN (Reason: mild pain/fever)
escitalopram oxalate 10 mg Tablet
10 mg PO DAILY
hydroxychloroquine [Plaquenil] 200 mg Tablet
200 mg PO DAILY
Discharge Orders:
Discharge Patient (As Directed); Ordered 12/06/24
Ordered By: Irma Sanchez
Discharge Date and Time
Discharge Date/Time: 12/06/24 14:08
Print Language: DANISH
--- NOTE | 2024-12-06 13:28 | CM ---
MD entered order for discharge.
Spoke with pt she said she was ready for discahrge.
Lauro her will drive her home.
Offered VN she declined need.
PLAN Home no needs
== END 2024-12-06 14:08 | disposition home or self-care (01) | DRG 864 ==
LOC: 4 EAST ACU 17:44
PROVIDERS: Emergency Medicine; Physician Assistant; Student in an Organized Health Care Education/Training Program; ADMITTING PHYSICIAN Internal Medicine; ATTENDING PHYSICIAN Internal Medicine; EMERGENCY PHYSICIAN Emergency Medicine; FAMILY PHYSICIAN Internal Medicine; OTHER PHYSICIAN Internal Medicine Infectious Disease
DX: R50.2 Drug induced fever (principal); D61.818 Other pancytopenia; D84.821 Immunodeficiency due to drugs; D59.10 Autoimmune hemolytic anemia, unspecified; M06.9 Rheumatoid arthritis, unspecified; Z79.620 Long term (current) use of immunosuppressive biologic; M32.9 Systemic lupus erythematosus, unspecified; Z11.52 Encounter for screening for COVID-19; Z90.13 Acquired absence of bilateral breasts and nipples; Z85.3 Personal history of malignant neoplasm of breast; Z79.811 Long term (current) use of aromatase inhibitors; K75.4 Autoimmune hepatitis; E11.9 Type 2 diabetes mellitus without complications; Z79.4 Long term (current) use of insulin; Z96.41 Presence of insulin pump (external) (internal); F41.9 Anxiety disorder, unspecified; I10 Essential (primary) hypertension; Z79.52 Long term (current) use of systemic steroids; Z90.710 Acquired absence of both cervix and uterus; Z88.2 Allergy status to sulfonamides; Z88.0 Allergy status to penicillin
CPT/HCPCS: 71046; 71260; 74177; 80048; 80053; 81003; 81015; 82962; 83036; 83605; 85025; 85652; 86140; 87040; 87502; 87811; 96361; 96374; 99285; Q9967